=== PATIENT | male | born 1960 | race Caucasian/White ===

== ENCOUNTER 2024-11-04 13:10 | Outpatient (CLI) | payer OTHER, SELFPAY ==
[2024-11-04 13:10] VITALS: BP 131/70; PULSE 76; RESP 14; TEMP 36.3; O2SAT 97
[2024-11-04] MEDS: HEPARIN SODIUM LOCK FLUSH 500 UNITS/5 ML SYRINGE IV PUSH (13:43)
== END 2024-11-04 13:11 | disposition home or self-care (01) ==
PROVIDERS: PCP Family Medicine; Visit Provider Internal Medicine Hematology & Oncology
DX: Z45.2 Encounter for adjustment and management of vascular access device (principal); C25.0 Malignant neoplasm of head of pancreas
CPT/HCPCS: 96523

== ENCOUNTER 2024-11-20 14:08 | Outpatient (CLI) | payer OTHER, SELFPAY ==
[2024-11-20] MEDS: HEPARIN SODIUM LOCK FLUSH 500 UNITS/5 ML SYRINGE IV PUSH (14:25)
[2024-11-20 14:27] VITALS: BP 129/63; PULSE 74; RESP 14; TEMP 36.4; O2SAT 97; BMI 37.7
--- NOTE | 2024-11-20 14:34 | PC.NURSE ---
Tolerated chemo pump removal and port flush. see MAR/patient care notes.
== END 2024-11-20 14:09 | disposition home or self-care (01) ==
PROVIDERS: PCP Family Medicine; Visit Provider Internal Medicine Hematology & Oncology
DX: Z45.2 Encounter for adjustment and management of vascular access device (principal); C25.9 Malignant neoplasm of pancreas, unspecified
CPT/HCPCS: 96523

== ENCOUNTER 2024-12-02 14:02 | Outpatient (CLI) | payer OTHER, SELFPAY ==
[2024-12-02 14:21] VITALS: BP 127/74; PULSE 78; RESP 16; TEMP 36.5; O2SAT 95; BMI 35.2
[2024-12-02] MEDS: HEPARIN SODIUM LOCK FLUSH 500 UNITS/5 ML SYRINGE (14:25)
--- NOTE | 2024-12-02 14:32 | PC.NURSE ---
Patient tolerated chemo pump removal and port a cath deaccess well. SEE patient care notes.
== END 2024-12-02 14:03 | disposition home or self-care (01) ==
PROVIDERS: PCP Family Medicine; Visit Provider Internal Medicine Hematology & Oncology
DX: Z45.2 Encounter for adjustment and management of vascular access device (principal); C25.9 Malignant neoplasm of pancreas, unspecified
CPT/HCPCS: 96523

== ENCOUNTER 2024-12-16 14:14 | Outpatient (CLI) | payer OTHER, SELFPAY ==
[2024-12-16] MEDS: HEPARIN SODIUM LOCK FLUSH 500 UNITS/5 ML SYRINGE IV PUSH (14:35)
[2024-12-16 14:36] VITALS: BP 125/75; PULSE 72; RESP 16; TEMP 36.6; O2SAT 97
== END 2024-12-16 14:15 | disposition home or self-care (01) ==
PROVIDERS: PCP Family Medicine; Visit Provider Internal Medicine Hematology & Oncology
DX: Z45.2 Encounter for adjustment and management of vascular access device (principal); C25.9 Malignant neoplasm of pancreas, unspecified
CPT/HCPCS: 96523

== ENCOUNTER 2024-12-30 14:06 | Outpatient (CLI) | payer OTHER, SELFPAY ==
[2024-12-30 14:29] VITALS: BP 128/70; PULSE 78; RESP 14; TEMP 36.7; O2SAT 96
[2024-12-30] MEDS: HEPARIN SODIUM LOCK FLUSH 500 UNITS/5 ML SYRINGE IV PUSH (14:29)
--- OUTSIDE RECORDS SUMMARY | 2024-12-30 14:57 | XMS_ITS | Clinical Summary ---
Author Organization [facility] Address [address] [place] [address] [place] [address] Care Team Providers Care Behavioral Health Assistant Name Role Phone Jevon Pelletier MD Primary Care Provider [phone] Lavon Schuler MD Unavailable [phone] Ravin Patel MD Unavailable [phone] Leelee Montana [facility] Unavailable Allergies Active Allergy Reactions Criticality Noted Date Comments Isosorbide Nitrate Headache 11/09/2016 Medications aspirin EC (ECOTRIN) 81 MG tablet Take 1 tablet by mouth daily. 03/09/2014 Active gabapentin 600 MG tablet Take 600 mg by mouth 3 (three) times daily. 11 11/05/2016 Active lisinopril 40 MG tablet Take 40 mg by mouth daily. 11 11/05/2016 Active metFORMIN 500 MG 24 hr tablet Take 2,000 mg by mouth daily. 11 10/16/2016 Active nitroglycerin (NITROSTAT) 0.[address] 0.4 mg under the tongue every 5 (five) minutes as needed. 08/27/2014 Active atorvastatin 10 MG tablet Take 10 mg by mouth nightly at bedtime. 04/19/2020 Active JARDIANCE 25 MG tablet Take 25 mg by mouth daily. 12/30/2020 Active RYBELSUS 7 MG Tab Take 1 tablet by mouth daily. 11/19/2022 Active sucralfate (CARAFATE) 1 G tablet Take 1 g by mouth every 6 (six) hours as needed. 09/07/2022 Active pantoprazole EC (PROTONIX) 40 MG tablet Take 1 tablet (40 mg total) by mouth daily. 11/27/2022 Active Active Problems Problem Noted Date Diagnosed Date Vertigo 11/26/2022 Syncope and collapse 11/25/2022 Acute viral syndrome 11/25/2022 Pneumobilia 11/25/2022 Generalized weakness 11/24/2022 Traumatic complete tear of l eft rotator cuff, subsequent encounter 10/20/2020 Traumatic tear of left rotat or cuff, unspecified tear extent, initial encounter 10/03/2020 Rotator cuff injury, left, initial encounter 09/2020 Acute on chronic pancreatitis ([facility]) 07/06/2020 Hemoglobin A1c 8.0% or greater 07/06/2020 Osteoarthritis of left knee 12/27/2016 Essential (primary) hypertension 11/09/2016 Class 3 severe obesity due t o excess calories with serious comorbidity in adult ([facility]) 11/09/2016 ALEJO (obstructive sleep apnea) 11/09/2016 Umbilical hernia 06/05/2016 Controlled type 2 diabetes m ellitus with diabetic neuropathy ([facility]) Diabetic neuropathy ([facility]) Hypertension Coronary artery disease Overview (07/06/2020): non-obstructive Resolved Problems Problem Noted Date Diagnosed Date Resolved Date Hypomagnesemia 07/06/2020 07/13/2020 Other chest pain 01/31/2018 02/16/2022 Hyperlipidemia, mixed 11/09/20162019 Morbid obesity ([facility]) 02/16/2022 Sleep apnea with use of cont inuous positive airway pressure (CPAP) 02/16/2022 Overview (07/06/2020): has not been using secondary to waiting for a chin strap Encounters Date Type Department Care Team Description 12/25/2024 9:23 AM CUSTOMER SERVICE ADMINISTRATOR - 12/25/2024 11:59 PM CUSTOMER SERVICE ADMINISTRATOR Hospital Encounter [facility] [address] [place] [address] Hever Marc MD Discharge Disposition: Home or Self Care (Routine Discharge) 12/25/2024 Orders Only [facility] [address] [place] [id number] Hever Marc MD 12/25/2024 Travel 12/11/2024 1:25 PM CUSTOMER SERVICE ADMINISTRATOR - 12/11/2024 11:59 PM CUSTOMER SERVICE ADMINISTRATOR Hospital Encounter [facility] [address] [place] [address] Hever Marc MD Discharge Disposition: Home or Self Care (Routine Discharge) 12/11/2024 Orders Only [facility] [address] [place] [address] Hever Marc MD 12/11/2024 Travel 11/27/2024 11:30 AM CUSTOMER SERVICE ADMINISTRATOR - 11/27/2024 11:59 PM CUSTOMER SERVICE ADMINISTRATOR Hospital Encounter [facility] [place] [address] Hever Marc MD Discharge Disposition: Home or Self Care (Routine Discharge) 11/27/2024 Orders Only [facility] [address] [place] [address] Hever Marc MD 11/27/2024 Travel 11/13/2024 10:48 AM CUSTOMER SERVICE ADMINISTRATOR - 11/13/2024 11:59 PM CUSTOMER SERVICE ADMINISTRATOR Hospital Encounter [facility] [address] [place] [id number] Hever Marc MD Discharge Disposition: Home or Self Care (Routine Discharge) 11/13/2024 Orders Only [facility] [address] [place] [address] Hever Marc MD 11/13/2024 Travel 10/28/2024 8:19 AM CUSTOMER SERVICE ADMINISTRATOR - 10/28/2024 11:59 PM CUSTOMER SERVICE ADMINISTRATOR Hospital Encounter [facility] [place] [address] Hever Marc MD Discharge Disposition: Home or Self Care (Routine Discharge) 10/28/2024 Orders Only [facility] [address] [place] [address] Hever Marc MD 10/28/2024 Travel 10/16/2024 11:20 AM CUSTOMER SERVICE ADMINISTRATOR - 10/16/2024 11:59 PM CUSTOMER SERVICE ADMINISTRATOR Hospital Encounter [facility] [address] [place] [address] Hever Marc MD Discharge Disposition: Home or Self Care (Routine Discharge) 10/16/2024 Orders Only [facility] [address] [place] [id number] Hever Marc MD 10/16/2024 Travel from Last 3 Months Family History Medical History Relation Comments Diabetes Brother 1 Heart Attack Brother 1 in his 40's, Hypertension Brother 1 Stent Cardiac Brother 1 Diabetes Brother 2 Hypertension Brother 2 Stent Cardiac Brother 3 No Known Problems Brother 4 Alzheimers Father CABG Father Heart Attack Father CABG Mother in 60's Relation Status Comments Brother 1 Alive heart disease Brother 2 Alive Brother 3 Alive Brother 4 Alive Father (Age 81) Mother (Age 81) kidney dialysi s, CHF,sepsis Social History Tobacco Use Types Packs/Day Years Used Date Smoking Tobacco: Never Smokeless Tobacco: Never Alcohol Use Standard Drinks/Week Comments No 0 (1 standard drink = 0.6 oz pur e alcohol) Sex and Gender Information Value Date Recorded Sex Assigned at Male 12/25/2024 9:22 AM CUSTOMER SERVICE ADMINISTRATOR Legal Sex Male 11:59 PM CDT Gender Identity Not on file Sexual Orientation Not on file 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 [employer] Not on file Not on file Not on file Last Filed Vital Signs Vital Sign Reading Time Taken Comments Blood Pressure 110/74 11/27/2022 8:42 AM CUSTOMER SERVICE ADMINISTRATOR Pulse 79 11/27/2022 8:42 AM CUSTOMER SERVICE ADMINISTRATOR Temperature 35.9 ??C (96.6 ??F) 11/27/2022 6:05 AM CS T Respiratory Rate 20 11/27/2022 6:05 AM CUSTOMER SERVICE ADMINISTRATOR Oxygen Saturation 94% 11/27/2022 6:05 AM CUSTOMER SERVICE ADMINISTRATOR Inhaled Oxygen Concentration - - Weight 131.6 kg (290 lb 3.2 oz) 11/24/2022 9:37 PM CUSTOMER SERVICE ADMINISTRATOR Height 177.8 cm (5' 10 ) 11/24/2022 9:37 PM CUSTOMER SERVICE ADMINISTRATOR Body Mass Index 41.64 11/24/2022 9:37 PM CUSTOMER SERVICE ADMINISTRATOR Plan of Treatment Health Maintenance Due Date Last Done Comments ASCVD Statin 1960 Kidney Health Evaluation 1960 Annual Physical 1963 Pneumococcal Vaccine: Pediatrics (0 to 5 Years) and At-Risk Patients (6 to 64 Years) (1 of 2 - PCV) 1966 Diabetes: Retinopathy Eye Exam 1978 Hepatitis C 1978 DTaP, Tdap and Td Vaccines (1 - Tdap) 1979 Zoster Vaccines (1 of 2) 2010 RSV Immunization or 60+ Years (1 - Risk 60-74 years 1-dose series) 2020 Hemoglobin A1C 04/20/2021 10/21/2020, 080 04/2020, 05/22/2016 ASCVD LDL 07/27/2021 07/27/2020, 07/02, 07/07/2020, Additional history exists Lipid Panel 07/27/2021 07/27/2020, 07/02, 07/07/2020, Additional history exists COVID-19 Vaccine ( season) 2024 05/12/2021, 04/14/2021 Influenza Adult (#1) 2024 Colorectal Cancer Screening Colonoscopy (10 Years) 05/26/2031 05/26/2021, 05/26/2021 Meningococcal B Vaccine Aged Out No l onger eligible based on patient's age to complete this topic Meningococcal Vaccine Aged Out No lis cosmo eligible based on patient's age to complete this topic RSV Immunizations Under 20 Months Aged Out No longer eligible based on patient's age to complete this topic Goals Goal Patient Goal Type Associated Problems Recent Progress Patient-Stated? Author Patient will return to prior living situation and remain independent in ADLs upon discharge from hospital Lifestyle No Mariely Cottrell RN Medical Devices Implanted Type Area [employer] Device Identifier Shelf Expiration Date Model / Serial / Lot Kit [employer] Bioanchor Speedbridge 5.5 [facility] - [id number] Implanted:Qty: 1 on 11/16/2020 by Franc Casas MD at [facility] [place] Left: Shoulder [employer] [id number] 08/01/2024 [id number]-[id number] S-5 / / [id number] Kit [employer] Bioanchor Speedbridge 5.5 [facility] - [id number] Implanted:Qty: 1 on 11/16/2020 by Franc Casas MD at [facility] [place] Left: Shoulder [employer] [id number] 08/01/2024 AR-2600SB S-5 / / [id number] Implant System, Proximal [employer] Implanted:Qty: 1 on 11/16/2020 by Franc Casas MD at [facility] Left: Shoulder 03/31/2025 [id number] / / [id number] Procedures Procedure Name Priority Date/Time Associated Diagnosis Comments COMPREHENSIVE METABOLIC PANEL Routine 12/25/2024 9:35 AM CUSTOMER SERVICE ADMINISTRATOR Adenocarcinoma of pancreas (CMS/HCC HHS/HCC) CBC W/DIFF AUTOMATED Routine 12/25/2024 9:35 AM CUSTOMER SERVICE ADMINISTRATOR Adenocarcinoma of pancreas (CMS/HCC HHS/HCC) COMPREHENSIVE METABOLIC PANEL Routine 12/11/2024 1:44 PM CUSTOMER SERVICE ADMINISTRATOR Adenocarcinoma of pancreas (CMS/HCC HHS/HCC) CBC W/DIFF AUTOMATED Routine 12/11/2024 1:44 PM CUSTOMER SERVICE ADMINISTRATOR Adenocarcinoma of pancreas (CMS/HCC HHS/HCC) COMPREHENSIVE METABOLIC PANEL Routine 11/27/2024 11:40 AM CUSTOMER SERVICE ADMINISTRATOR Adenocarcinoma of pancreas (CMS/HCC HHS/HCC) CBC W/DIFF AUTOMATED Routine 11/27/2024 11:40 AM CUSTOMER SERVICE ADMINISTRATOR Adenocarcinoma of pancreas (CMS/HCC HHS/HCC) COMPREHENSIVE METABOLIC PANEL Routine 11/13/2024 10:58 AM CUSTOMER SERVICE ADMINISTRATOR Adenocarcinoma of pancreas (CMS/HCC HHS/HCC) CBC W/DIFF AUTOMATED Routine 11/13/2024 10:58 AM CUSTOMER SERVICE ADMINISTRATOR Adenocarcinoma of pancreas (CMS/HCC HHS/HCC) IMMUNOASY TUMOR AG CA 19-9 Routine 11/13/2024 10:58 AM CUSTOMER SERVICE ADMINISTRATOR Adenocarcinoma of pancreas (CMS/HCC HHS/HCC) COMPREHENSIVE METABOLIC PANEL Routine 10/28/2024 8:26 AM CUSTOMER SERVICE ADMINISTRATOR Adenocarcinoma of pancreas (CMS/HCC HHS/HCC) CBC W/DIFF AUTOMATED Routine 10/28/2024 8:26 AM CUSTOMER SERVICE ADMINISTRATOR Adenocarcinoma of pancreas (CMS/HCC HHS/HCC) COMPREHENSIVE METABOLIC PANEL Routine 10/16/2024 11:31 AM CUSTOMER SERVICE ADMINISTRATOR Adenocarcinoma of pancreas (CMS/HCC HHS/HCC) CBC W/DIFF AUTOMATED Routine 10/16/2024 11:31 AM CUSTOMER SERVICE ADMINISTRATOR Adenocarcinoma of pancreas (CMS/HCC HHS/HCC) COLONOSCOPY 05/26/2021 10:08 AM CDT HEMOGLOBIN, GLYCOSYLATED Routine 10/21/2020 1:39 PM CUSTOMER SERVICE ADMINISTRATOR Controlled type 2 diabetes mellitus with diabetic neuropathy, unspecified whether superintendent container terminal insulin use (CMS/HCC HHS/HCC) LIPID PANEL (OUTSIDE LAB) Routine 07/27/2020 from Last 3 Months or Most Recently Relevant to Health Maintenance Results * (ABNORMAL) COMPREHENSIVE METABOLIC PANEL (12/25/2024 9:35 AM CUSTOMER SERVICE ADMINISTRATOR) Only the most recent of6 resultswithin the time period is included. SODIUM S/P/B 141 136 - 145 MMOL/L 12/25/2024 10:07 AM [facility] POTASSIUM S/P/B 4.3 3.5 - 5.1 MMOL/L 12/25/2024 10:07 AM [facility] CHLORIDE S/P/B 103 98 - 107 MMOL/L 12/25/2024 10:07 AM [facility] CO2 25.9 21.0 - 32.0 MMOL/L 12/25/2024 10:07 AM [facility] GLUCOSE 155(H) 70 - 99 MG/DL 12/25/2024 10:07 AM [facility] Comment: FASTING GLUCOSE 100 TO 125 MG/DL IS CONSISTENT WITH IMPAIRED FASTING GLUCOSE. FASTING GLUCOSE >125 MG/DL IS CONSISTENT WITH DIABETES. RANDOM GLUCOSE >200 MG/DL WITH HYPERGLYCEMIC SYMPTOMS IS CONSISTENT WITH DIABETES. PER ADA GUIDELINES BUN 12 6 - 24 MG/DL 12/25/2024 10:07 AM [facility] CREATININE S/P/B 0.96 0.70 - 1.30 MG/DL 12/25/2024 10:07 AM [facility] CALCIUM S/P/B 8.9 8.4 - 10.5 MG/DL 12/25/2024 10:07 AM [facility] BILIRUBIN TOTAL S/P/B 0.5 0.2 - 1.0 MG/DL 12/25/2024 10:07 AM [facility] Comment: THIS ASSAY IS NOT RECOMMENDED FOR PATIENTS UNDERGOING TREATMENT WITH ELTROMBOPAG DUE TO THE POTENTIAL FOR FALSELY ELEVATED RESULTS. ALKALINE PHOSPHATASE S/P/B 76 45 - 115 U/L 12/25/2024 10:07 AM [facility] AST 32 15 - 37 U/L 12/25/2024 10:07 AM [facility] ALT 40 16 - 63 U/L 12/25/2024 10:07 AM [facility] TOTAL PROTEIN S/P/B 6.7 6.4 - 8.2 G/DL 12/25/2024 10:07 AM [facility] ALBUMIN S/P/B 3.4 3.4 - 5.0 G/DL 12/25/2024 10:07 AM [facility] ANION GAP 12.1 5.0 - 15.0 MMOL/L 12/25/2024 10:07 AM [facility] OSMOLALITY (CALC) 295 MOSM/KG 025 10:07 AM [facility] Comment:REFERENCE RANGE NOT ESTABLISHED GFR ESTIMATE 88(L) >89 ML/MIN/1. 73 M2 12/25/2024 10:07 AM [facility] GFR NOTES GFR REFERENCE S: 12/25/2024 10:07 AM [facility] Comment: THE ESTIMATED GFR IS CALCULATED USING THE 2020 CKD-EPI EQUATION. THE FOLLOWING CATEGORIES FOR GRADING RENAL FUNCTION ARE RECOMMENDED BY THE INTERNATIONAL SOCIETY OF NEPHROLOGY (KDIGO 2012 CLINICAL PRACTICE GUIDELINE). G1,NORMAL OR HIGH: >89 ml/min/1.73 m2 G2,MILDLY DECREASED: 60-89 ml/min/1.73 m2 G3A,MILDLY TO MODERATELY DECREASED: 45-59 ml/min/1.73 m2 G3B,MODERATELY TO SEVERELY DECREASED: 30-44 ml/min/1.73 m2 G4,SEVERELY DECREASED: 15-29 ml/min/1.73 m2 G5,KIDNEY FAILURE: <15 ml/min/1.73 m2 12/25/2024 9:35 AM CUSTOMER SERVICE ADMINISTRATOR Hever Marc MD LABORATORY Final Result [facility] [address] [id number], * (ABNORMAL) CBC W/DIFF AUTOMATED (12/25/2024 9:35 AM CUSTOMER SERVICE ADMINISTRATOR) Only the most recent of6 resultswithin the time period is included. WBC 6.59 4.00 - 10.80 x10'3/uL 12/25/2024 9:48 AM CUSTOMER SERVICE ADMINISTRATOR [facility] RBC 5.29 4.50 - 6.10 x10'6/uL 12/25/2024 9:48 AM CUSTOMER SERVICE ADMINISTRATOR [facility] HGB 15.5 13.0 - 18.0 G/DL 12/25/2024 9:48 AM [facility] HCT 47.3 37.0 - 52.0 % 12/25/2024 9:48 AM CUSTOMER SERVICE ADMINISTRATOR [facility] MCV 89.4 78.0 - 100.0 FL 12/25/2024 9:48 AM CUSTOMER SERVICE ADMINISTRATOR [facility] MCH 29.3 27.0 - 31.0 PG 12/25/2024 9:48 AM CUSTOMER SERVICE ADMINISTRATOR [facility] MCHC 32.8(L) 33.0 - 36.0 G/DL 12/25/2024 9:48 AM [facility] RDW 18.3(H) 11.5 - 14.5 % 12/25/2024 9:48 AM [facility] PLT 152 150 - 350 x10'3/uL 12/25/2024 9:48 AM [facility] MPV 9.0 7.4 - 10.4 FL 12/25/2024 9:48 AM [facility] CBC COMMENT NORMAL REFERENCE RANGE NOT ESTABLISHED FOR THE PROPORTIONAL LEUKOCYTE DIFFERENTIAL. 12/25/2024 9:48 AM [facility] NEUTROPHILS % 48.9 % 12/25/2024 9:48 AM [facility] LYMPHOCYTES % 36.9 % 12/25/2024 9:48 AM [facility] MONOCYTES % 12.4 % 12/25/2024 9:48 AM [facility] EOSINOPHILS % 1.1 % 12/25/2024 9:48 AM [facility] BASOPHILS % 0.5 % 12/25/2024 9:48 AM [facility] IMMATURE GRANS % 0.2 % 12/25/19 9:48 AM [facility] NRBC % 0.0 % 12/25/2024 9:48 AM [facility] ABS. NEUTROPHILS 3.23 1.60 - 8.30 x10'3/uL 12/25/2024 9:48 AM [facility] ABS. LYMPHOCYTES 2.43 0.80 - 4.70 x10'3/uL 12/25/2024 9:48 AM [facility] ABS. MONOCYTES 0.82 0.00 - 1.50 x10'3/uL 12/25/2024 9:48 AM [facility] ABS. EOSINOPHILS 0.07 0.00 - 0.40 x10'3/uL 12/25/2024 9:48 AM [facility] ABS. BASOPHILS 0.03 0.00 - 0.20 x10'3/uL 12/25/2024 9:48 AM [facility] ABS. IMMATURE GRANULOCYTES 0.01 0.00 - 0.03 x10'3/uL 12/25/2024 9:48 AM [facility] ABS. NUCLEATED RBC'S 0.00 0.00 - 0.01 x10'3/uL 12/25/2024 9:48 AM CUSTOMER SERVICE ADMINISTRATOR [facility] 12/25/2024 9:35 AM CUSTOMER SERVICE ADMINISTRATOR Hever Marc MD LABORATORY Final Result Performing Organization Address City/[facility]/ZIP Co de Phone Number [facility] [address] [place] [address], * (ABNORMAL) IMMUNOASY TUMOR AG CA 19-9 (11/13/2024 10:58 AM CUSTOMER SERVICE ADMINISTRATOR) CA 19-9 37(H) <34 U/mL 11/17/2024 9:42 PM CUSTOMER SERVICE ADMINISTRATOR [facility] Comment: This test was performed using the Siemens chemiluminescent method. Values obtained from different assay methods cannot be used inter- changeably. CA 19-9 levels, regardless of value, should not be interpreted as absolute evidence of the presence or absence of disease. Test Performed by [facility], [facility], [address] [place] [address] Aaron Mccall M.D., Ph.D., Director of Laboratories , [facility] [id number] 11/13/2024 10:5 8 AM CUSTOMER SERVICE ADMINISTRATOR Hever Marc MD LABORATORY Final Result Performing Organization Address [facility]/ZIP Co de Phone Number [facility] [address], [place] [phone] * COLONOSCOPY (05/26/2021 10:08 AM CDT) us Yobany Stern MD GI PROCEDURE ORDERABLES Final Result * (ABNORMAL) HEMOGLOBIN, GLYCOSYLATED (10/21/2020 1:39 PM CUSTOMER SERVICE ADMINISTRATOR) HGB A1C 7.5(H) <5.7 % 10/21/2020 1:55 PM CUSTOMER SERVICE ADMINISTRATOR [facility] Comment: 5.7 TO 6.4% INCREASED RISK OF DIABETES > OR = 6.5% CONSISTENT WITH DIABETES PER ADA GUIDELINES ESTIMATED AVG GLUCOSE 169(H) 70 - 140 MG/DL 10/21/2020 1:55 PM CUSTOMER SERVICE ADMINISTRATOR [facility] 10/21/2020 1:39 PM CUSTOMER SERVICE ADMINISTRATOR Franc Casas MD LABORATORY Final Result [facility] [address] [place] [address], * LIPID PANEL (OUTSIDE LAB) (07/27/2020) CHOLESTEROL 122 TRIGLYCERIDES 250 HDL 35 LDL (CALCULATED) 37 VLDL CALCULATION 50 CHOL/HDL RATIO 3.5 07/27/2020 Doc [facility] LAB-OUTSIDE/ABSTRACTED Final Result from Last 3 Months or Most Recently Relevant to Health Maintenance Insurance [id number] Advance Directives * Full Code (Latest Code Status on File) Date Activated Date Inactivated Comments 11/25/2022 5:07 PM 11/27/2022 1:35 PM * Full Code Date Activated Date Inactivated Comments 07/06/2020 2:42 PM 07/13/2020 6:06 PM Care Teams Behavioral Health Assistant Relationship Specialty Start Date End Date Jevon Pelletier MD [address] [place] [address] PCP - General FAMILY PRACTICE 10/16/16 Lavon Schuler MD [address] [place] [address] Consulting Physician GASTROENTEROLOGY 08/11/20 Ravin Patel MD [address] [place] [address] Consulting Physician INTERVENTIONAL CARDIOLOGY 09/08/21 Leelee Montana, [facility]- [address] [place] [address] NURSE PRACTITIONER 09/08/21
--- OUTSIDE RECORDS SUMMARY | 2024-12-30 14:57 | XMS_ITS | Encounter Summary ---
Author Organization [facility] Address [address] [place] [address]. [place] [address] [place] [address] Care Team Providers Care Shank Cutter Name Role Phone Jevon Pelletier MD Primary Care Provider [phone] Nigel Petersen MD Unavailable [phone] Lavon Schuler MD Unavailable [phone] Ravin Patel MD Unavailable [phone] Leelee Montana [facility] Unavailable Encounter Details Date Type Department Care Team (Late st Contact Info) Description 05/09/2019 Abstract [facility] CONVERSION [address] [place] [address] , Generic Conversion, Social History Tobacco Use Types Packs/Day Years Used Date Smoking Tobacco: Never Smokeless Tobacco: Never Alcohol Use Standard Drinks/Week Comments No 0 (1 standard drink = 0.6 oz pur e alcohol) Sex and Gender Information Value Date Recorded Sex Assigned at Male 12/25/2024 9:22 AM SENIOR ASIC DESIGN ENGINEER Legal Sex Male 11:59 PM CDT Gender Identity Not on file Sexual Orientation Not on file 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 Not on file Not on file Not on file documented as of this encounter Plan of Treatment Not on file documented as of this encounter Visit Diagnoses Not on filedocumented in this encounter Additional Health Concerns Infection Onset Date Last Indicated Resolved Time COVID-19 Rule Out 09/12/2020 09/12/2020 09/13/2020 9:06 PM CDT COVID-19 Confirmed 09/12/2020 09/12/2020 0 12:34 AM SENIOR ASIC DESIGN ENGINEER COVID-19 Rule Out 11/13/2020 11/13/2020 11/14/2020 10:26 PM SENIOR ASIC DESIGN ENGINEER COVID-19 Rule Out 11/24/2022 11/24/2022 11/24/2022 5:19 PM SENIOR ASIC DESIGN ENGINEER COVID-19 Rule Out 11/24/2022 11/24/2022 11/25/2022 11:58 AM SENIOR ASIC DESIGN ENGINEER documented as of this encounter Care Teams Shank Cutter Relationship Specialty Start Date End Date Jevon Pelletier MD [address] [place] [phone] PCP - General FAMILY PRACTICE 10/16/16 Nigel Petersen MD [facility] [facility] [place] [id number] [place] Custodial Manager CARDIOVASCULAR DISEASE 10/16/16 09/07/21 Lavon Schuler MD [address] [place] [address] Consulting Physician GASTROENTEROLOGY 08/11/20 Ravin Patel MD [address] [place] [address] Consulting Physician INTERVENTIONAL CARDIOLOGY 09/08/21 Leelee Montana, PLATE TAKE OUT WORKER- [address] [place] [address] NURSE PRACTITIONER 09/08/21 documented as of this encounter
--- OUTSIDE RECORDS SUMMARY | 2024-12-30 14:57 | XMS_ITS | Encounter Summary ---
Author Organization [facility] Address [address] [place] [address]. [place] [address] [place] [address] Care Team Providers Care Inspector Water Pollution Control Name Role Phone Jevon Pelletier MD Primary Care Provider [phone] Nigel Petersen MD Unavailable [phone] Lavon Schuler MD Unavailable [phone] Ravin Patel MD Unavailable [phone] Leelee Montana [facility] Unavailable Encounter Details Date Type Department Care Team (Late st Contact Info) Description 08/16/2020 Abstract [facility] [address] [place] [id number] Abstract, Doc [facility] Social History Tobacco Use Types Packs/Day Years Used Date Smoking Tobacco: Never Smokeless Tobacco: Never Alcohol Use Standard Drinks/Week Comments No 0 (1 standard drink = 0.6 oz pur e alcohol) Sex and Gender Information Value Date Recorded Sex Assigned at Male 12/25/2024 9:22 AM STOCKKEEPER Legal Sex Male 11:59 PM CDT Gender Identity Not on file Sexual Orientation Not on file 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 No / Unsure 08/19/2020 8:27 AM CDT documented as of this encounter Functional Status * RETIRED Are you deaf or do you have serious difficulty hearing Answer Date of Assessment Author Status No 07/06/2020 2:56 PM CDT Activ e * RETIRED Are you blind or do you have serious difficulty seeing, even when wearing glasses? Answer Date of Assessment Author Status No 07/06/2020 2:56 PM CDT Activ e * Do you have serious difficulty walking or climbing stairs? Answer Date of Assessment Author Status No 07/06/2020 2:56 PM CDT Belia Shaffer RN Active * Do you have difficulty dressing or bathing? Answer Date of Assessment Author Status No 07/06/2020 2:56 PM CDT Belia Shaffer RN Active * Because of a physical, mental, or emotional condition, do you have difficulty doing errands alone such as visiting a doctor's office or shopping? Answer Date of Assessment Author Status No 07/06/2020 2:56 PM CDT Belia Shaffre RN Active documented as of this encounter Mental Status * Because of a physical, mental, or emotional condition, do you have serious difficulty concentrating, remembering, or making decisions? Answer Entry Date Author Status No 07/06/2020 2:56 PM CDT Belia Shaffer RN Active documented in this encounter Plan of Treatment Not on file documented as of this encounter Procedures Procedure Name Priority Date/Time Associated Diagnosis Comments LIPID PANEL (OUTSIDE LAB) Routine 07/27/2020 CMP (ABSTRACTED LAB) Routine 07/27/2020 documented in this encounter Results * (ABNORMAL) CMP (ABSTRACTED LAB) (07/27/2020) SODIUM S/P/B 144 POTASSIUM S/P/B 5.3(A) 3.5 - 5.2 CHLORIDE S/P/B 101 CO2 27 BUN 9 CREATININE S/P/B 0.94 0.7 - 1.3 EGFR AFR. AMER. 101(A) <=90 EGFR NON-AFR. AMER. 88 <=90 CALCIUM S/P/B 9.9 GLUCOSE 172 mg/dL TOTAL PROTEIN S/P/B 6.9 ALBUMIN S/P/B 4.3 3.5 - 5.0 AST 15 ALT 15 ALKALINE PHOSPHATASE S/P/B 57 BILIRUBIN TOTAL S/P/B 0.6 07/27/2020 us Doc [facility] Abstract LAB-OUTSIDE/ABSTRACTED Final Result * LIPID PANEL (OUTSIDE LAB) (07/27/2020) CHOLESTEROL 122 TRIGLYCERIDES 250 HDL 35 LDL (CALCULATED) 37 VLDL CALCULATION 50 CHOL/HDL RATIO 3.5 07/27/2020 us Doc [facility] Abstract LAB-OUTSIDE/ABSTRACTED Final Result documented in this encounter Visit Diagnoses Not on filedocumented in this encounter Additional Health Concerns Infection Onset Date Last Indicated Resolved Time COVID-19 Rule Out 09/12/2020 09/12/2020 09/13/2020 9:06 PM CDT COVID-19 Confirmed 09/12/2020 09/12/2020 0 12:34 AM STOCKKEEPER COVID-19 Rule Out 11/13/2020 11/13/2020 11/14/2020 10:26 PM STOCKKEEPER COVID-19 Rule Out 11/24/2022 11/24/2022 11/24/2022 5:19 PM STOCKKEEPER COVID-19 Rule Out 11/24/2022 11/24/2022 11/25/2022 11:58 AM STOCKKEEPER documented as of this encounter Care Teams Inspector Water Pollution Control Relationship Specialty Start Date End Date Jevon Pelletier MD [address] [place] [id number] PCP - General FAMILY PRACTICE 10/16/16 Nigel Petersen MD [address] [phone] [place] Dental Instrument Maker CARDIOVASCULAR DISEASE 10/16/16 09/07/21 Lavon Schuler MD [address] [place] [address] Consulting Physician GASTROENTEROLOGY 08/11/20 Ravin Patel MD [address] [place] [address] Consulting Physician INTERVENTIONAL CARDIOLOGY 09/08/21 Leelee [place], REGIONAL EHS MANAGER- [address], [place] [address] NURSE PRACTITIONER 09/08/21 documented as of this encounter
--- OUTSIDE RECORDS SUMMARY | 2024-12-30 14:57 | XMS_ITS | Encounter Summary ---
Author Organization [facility] Address [address] [facility] [place] [address] [place] [address] Care Team Providers Care Architectural Superintendent Name Role Phone Jevon Pelletier MD Primary Care Provider [phone] Lavon Schuler MD Unavailable [phone] Ravin Patel MD Unavailable [phone] Leelee Montana [facility] Unavailable Encounter Details Date Type Department Care Team (Late st Contact Info) Description 02/28/2024 GPX Software Message Enc [facility] BUSINESS OFF[facility] Provider Action Required Social History Tobacco Use Types Packs/Day Years Used Date Smoking Tobacco: Never Smokeless Tobacco: Never Alcohol Use Standard Drinks/Week Comments No 0 (1 standard drink = 0.6 oz pur e alcohol) Sex and Gender Information Value Date Recorded Sex Assigned at Male 12/25/2024 9:22 AM MARKETING AND PROMOTIONS MANAGER Legal Sex Male 11:59 PM CDT Gender Identity Not on file Sexual Orientation Not on file 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 Answer Date of Assessment Author Status No 11/24/2022 9:28 PM MARKETING AND PROMOTIONS MANAGER Activ e * Do you have serious difficulty walking or climbing stairs? Answer Date of Assessment Author Status Yes 11/24/2022 9:28 PM MARKETING AND PROMOTIONS MANAGER Pily Olivera RN Active * Do you have difficulty dressing or bathing? Answer Date of Assessment Author Status Yes 11/24/2022 9:28 PM MARKETING AND PROMOTIONS MANAGER Pily Olivera RN Active * Because of a physical, mental, or emotional condition, do you have difficulty doing errands alone such as visiting a doctor's office or shopping? Answer Date of Assessment Author Status No 11/24/2022 9:28 PM Pily Feldman RN Active documented as of this encounter Mental Status * Because of a physical, mental, or emotional condition, do you have serious difficulty concentrating, remembering, or making decisions? Answer Entry Date Author Status No 11/24/2022 9:28 PM Pily Feldman RN Active documented in this encounter Plan of Treatment Not on file documented as of this encounter Goals Goal Patient Goal Type Associated Problems Recent Progress Patient-Stated? Author Patient will return to prior living situation and remain independent in ADLs upon discharge from hospital Lifestyle No Mariely Cottrell RN documented as of this encounter Visit Diagnoses Not on filedocumented in this encounter Care Teams Architectural Superintendent Relationship Specialty Start Date End Date Jevon Pelletier MD [address] [facility] [place] [phone] PCP - General FAMILY PRACTICE 10/16/16 Lavon Schuler MD [address] [place] [address] Consulting Physician GASTROENTEROLOGY 08/11/20 Ravin Patel MD [address] [place] [address] Consulting Physician INTERVENTIONAL CARDIOLOGY 09/08/21 Leelee Montana FNP- [address] [place] [address] NURSE PRACTITIONER 09/08/21 documented as of this encounter
--- OUTSIDE RECORDS SUMMARY | 2024-12-30 14:57 | XMS_ITS | Encounter Summary ---
Author Organization [facility] Address [facility] [facility] [place] [address] [place] [address] Care Team Providers Care Resp Therapist Name Role Phone Jevon Pelletier MD Primary Care Provider [phone] Nigel Petersen MD Unavailable [phone] Lavon Schuler MD Unavailable [phone] Ravin Patel MD Unavailable [phone] Leelee Montana [facility] Unavailable Encounter Details Date Type Department Care Team (Late st Contact Info) Description 11/18/2015 Abstract [facility] [address] [place] [address] Nigel Petersen MD [address] [place] [address] Social History Tobacco Use Types Packs/Day Years Used Date Smoking Tobacco: Never Alcohol Use Standard Drinks/Week Comments No 0 (1 standard drink = 0.6 oz pur e alcohol) Sex and Gender Information Value Date Recorded Sex Assigned at Male 12/25/2024 9:22 AM SLIP SHEETER Legal Sex Male 11:59 PM CDT Gender Identity Not on file Sexual Orientation Not on file 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 Not on file Not on file documented as of this encounter Plan of Treatment Not on file documented as of this encounter Visit Diagnoses Not on filedocumented in this encounter Additional Health Concerns Infection Onset Date Last Indicated Resolved Time COVID-19 Rule Out 09/12/2020 09/12/2020 09/13/2020 9:06 PM CDT COVID-19 Confirmed 09/12/2020 09/12/2020 12:34 AM SLIP SHEETER COVID-19 Rule Out 11/13/2020 11/13/2020 11/14/2020 10:26 PM SLIP SHEETER COVID-19 Rule Out 11/24/2022 11/24/2022 11/24/2022 5:19 PM SLIP SHEETER COVID-19 Rule Out 11/24/2022 11/24/2022 11/25/2022 11:58 AM SLIP SHEETER documented as of this encounter Care Teams Resp Therapist Relationship Specialty Start Date End Date Jevon Pelletier MD [address] [place] [address] PCP - General FAMILY PRACTICE 10/16/16 Nigel Petersen MD [facility] [place] [address] [place] Core Shaper Top CARDIOVASCULAR DISEASE 10/16/16 09/07/21 Lavon Schuler MD [address] [place] [address] Consulting Physician GASTROENTEROLOGY 08/11/20 Ravin Patel MD [address] [place], [place] [phone] Consulting Physician INTERVENTIONAL CARDIOLOGY 09/08/21 Leelee Montana UTILITY AIDE- [address], [place] [address] NURSE PRACTITIONER 09/08/21 documented as of this encounter
--- OUTSIDE RECORDS SUMMARY | 2024-12-30 14:57 | XMS_ITS | Continuity of Care Document ---
Author Organization [facility] Address [address] [place] [address] [address] [place] [address] Insurance Providers Payer Plan Claims Address Claims Phone Policy Number Group Number Relation Employer Guarantor Name Guarantor Guarantor Address Guarantor Phone [employer] [address] [address], [place] [address] tel:[phone] Self Alexander Montenegro 1960 [address] [place] [address] [employer] D [address], [place] [address] tel:[phone] [id number] Self Alexander Montenegro 1960 [address] [place] [address] Problems Condition ICD9 code ICD10 code SNOMED code Start Date End Date S tatus Encounter for screening for other metabolic disorders Z13.228 Results No Results Allergies, adverse reactions, alerts No known allergies and adverse reactions Medications No administered medications reported Vital Signs No vital signs reported Social History No smoking Hx information available
--- OUTSIDE RECORDS SUMMARY | 2024-12-30 14:57 | XMS_ITS | Encounter Summary ---
Author Organization [facility] Address [facility] [place] [address] [place] [address] Care Team Providers Care Charter Representative Name Role Phone Jevon Pelletier MD Primary Care Provider [phone] Lavon Schuler MD Unavailable [phone] Ravin Patel MD Unavailable [phone] Leelee Montana [facility] Unavailable Encounter Details Date Type Department Care Team (Late st Contact Info) Description 12/25/2024 Orders Only [facility] [address] [facility] [place] [address] Hever Marc MD [address] [place] [address] Social History Tobacco Use Types Packs/Day Years Used Date Smoking Tobacco: Never Smokeless Tobacco: Never Alcohol Use Standard Drinks/Week Comments No 0 (1 standard drink = 0.6 oz pur e alcohol) Sex and Gender Information Value Date Recorded Sex Assigned at Male 12/25/2024 9:22 AM AUTO PARTS COUNTER PERSON Legal Sex Male 11:59 PM CDT Gender Identity Not on file Sexual Orientation Not on file 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 Answer Date of Assessment Author Status No 11/24/2022 9:28 PM AUTO PARTS COUNTER PERSON Activ e * Do you have serious difficulty walking or climbing stairs? Answer Date of Assessment Author Status Yes 11/24/2022 9:28 PM Pily Feldman RN Active * Do you have difficulty dressing or bathing? Answer Date of Assessment Author Status Yes 11/24/2022 9:28 PM Pily Feldman RN Active * Because of a physical, [...] in ADLs upon discharge from hospital Lifestyle Mariely Snell RN documented as of this encounter Results * (ABNORMAL) COMPREHENSIVE METABOLIC PANEL (12/25/2024 9:35 AM [facility]) SODIUM S/P/B 141 136 - 145 MMOL/L 12/25/2024 10:07 AM [facility] POTASSIUM S/P/B 4.3 3.5 - 5.1 MMOL/L 12/25/2024 10:07 AM [facility] CHLORIDE S/P/B 103 98 - 107 MMOL/L 12/25/2024 10:07 AM [facility] CO2 25.9 21.0 - 32.0 MMOL/L 12/25/2024 10:07 AM [facility] GLUCOSE 155(H) 70 - 99 MG/DL 12/25/2024 10:07 AM [facility] Comment: FASTING GLUCOSE 100 TO 125 MG/DL IS CONSISTENT WITH IMPAIRED FASTING GLUCOSE. FASTING GLUCOSE >125 MG/DL IS CONSISTENT WITH DIABETES. RANDOM GLUCOSE >200 MG/DL WITH HYPERGLYCEMIC SYMPTOMS IS CONSISTENT WITH DIABETES. PER ADA GUIDELINES BUN 12 6 - 24 MG/DL 12/25/2024 10:07 AM [facility] CREATININE S/P/B 0.96 0.70 - 1.30 MG/DL 12/25/2024 10:07 AM [facility] CALCIUM S/P/B 8.9 8.4 - 10.5 MG/DL 12/25/2024 10:07 AM [facility] BILIRUBIN TOTAL S/P/B 0.5 0.2 - 1.0 MG/DL 12/25/2024 10:07 AM [facility] Comment: THIS ASSAY IS NOT RECOMMENDED FOR PATIENTS UNDERGOING TREATMENT WITH ELTROMBOPAG DUE TO THE POTENTIAL FOR FALSELY ELEVATED RESULTS. ALKALINE PHOSPHATASE S/P/B 76 45 - 115 U/L 12/25/2024 10:07 AM [facility] AST 32 15 - 37 U/L 12/25/2024 10:07 AM [facility] ALT 40 16 - 63 U/L 12/25/2024 10:07 AM [facility] TOTAL PROTEIN S/P/B 6.7 6.4 - 8.2 G/DL 12/25/2024 10:07 AM [facility] ALBUMIN S/P/B 3.4 3.4 - 5.0 G/DL 12/25/2024 10:07 AM [facility] ANION GAP 12.1 5.0 - 15.0 MMOL/L 12/25/2024 10:07 AM [facility] OSMOLALITY (CALC) 295 MOSM/KG 025 10:07 AM [facility] Comment:REFERENCE RANGE NOT ESTABLISHED GFR ESTIMATE 88(L) >89 ML/MIN/1. 73 M2 12/25/2024 10:07 AM [facility] GFR NOTES GFR REFERENCE S: 12/25/2024 10:07 AM AUTO PARTS COUNTER PERSON [facility] Comment: THE ESTIMATED GFR IS CALCULATED [...] FAILURE: <15 ml/min/1.73 m2 12/25/2024 9:35 AM AUTO PARTS COUNTER PERSON us Hever Marc MD LABORATORY Final Result [facility] [address] [place] [address], * (ABNORMAL) CBC W/DIFF AUTOMATED (12/25/2024 9:35 AM AUTO PARTS COUNTER PERSON) WBC 6.59 4.00 - 10.80 x10'3/uL 12/25/2024 9:48 AM AUTO PARTS COUNTER PERSON [facility] RBC 5.29 4.50 - 6.10 x10'6/uL 12/25/2024 9:48 AM [facility] HGB 15.5 13.0 - 18.0 G/DL 12/25/2024 9:48 AM AUTO PARTS COUNTER PERSON [facility] HCT 47.3 37.0 - 52.0 % 12/25/2024 9:48 AM [facility] MCV 89.4 78.0 - 100.0 FL 12/25/2024 9:48 AM AUTO PARTS COUNTER PERSON [facility] MCH 29.3 27.0 - 31.0 PG 12/25/2024 9:48 AM [facility] MCHC 32.8(L) 33.0 - 36.0 G/DL 12/25/2024 9:48 AM [facility] RDW 18.3(H) 11.5 - 14.5 % 12/25/2024 9:48 AM [facility] PLT 152 150 - 350 x10'3/uL 12/25/2024 9:48 AM [facility] MPV 9.0 7.4 - 10.4 FL 12/25/2024 9:48 AM [facility] CBC COMMENT NORMAL REFERENCE RANGE NOT ESTABLISHED FOR THE PROPORTIONAL LEUKOCYTE DIFFERENTIAL. 12/25/2024 9:48 AM [facility] NEUTROPHILS % 48.9 % 12/25/2024 9:48 AM [facility] LYMPHOCYTES % 36.9 % 12/25/2024 9:48 AM [facility] MONOCYTES % 12.4 % 12/25/2024 9:48 AM [facility] EOSINOPHILS % 1.1 % 12/25/2024 9:48 AM [facility] BASOPHILS % 0.5 % 12/25/2024 9:48 AM [facility] IMMATURE GRANS % 0.2 % 12/25/19 9:48 AM [facility] NRBC % 0.0 % 12/25/2024 9:48 AM [facility] ABS. NEUTROPHILS 3.23 1.60 - 8.30 x10'3/uL 12/25/2024 9:48 AM [facility] ABS. LYMPHOCYTES 2.43 0.80 - 4.70 x10'3/uL 12/25/2024 9:48 AM [facility] ABS. MONOCYTES 0.82 0.00 - 1.50 x10'3/uL 12/25/2024 9:48 AM [facility] ABS. EOSINOPHILS 0.07 0.00 - 0.40 x10'3/uL 12/25/2024 9:48 AM [facility] ABS. BASOPHILS 0.03 0.00 - 0.20 x10'3/uL 12/25/2024 9:48 AM [facility] ABS. IMMATURE GRANULOCYTES 0.01 0.00 - 0.03 x10'3/uL 12/25/2024 9:48 AM AUTO PARTS COUNTER PERSON [facility] ABS. NUCLEATED RBC'S 0.00 0.00 - 0.01 x10'3/uL 12/25/2024 9:48 AM AUTO PARTS COUNTER PERSON [facility] 12/25/2024 9:35 AM AUTO PARTS COUNTER PERSON Hever Marc MD LABORATORY Final Result [facility] [address] [place] [address], documented in this encounter Visit Diagnoses Diagnosis Adenocarcinoma of pancreas (CMS/HCC HHS/HCC)- Primary Malignant neoplasm of pancreas, part unspecified documented in this encounter Care Teams Charter Representative Relationship Specialty Start Date End Date Jevon Pelletier MD [address] [facility] [place] [address] PCP - General FAMILY PRACTICE 10/16/16 Lavon Schuler MD [address] [place] [id number] Consulting Physician GASTROENTEROLOGY 08/11/20 Ravin Patel MD [address] [place] [address] Consulting Physician INTERVENTIONAL CARDIOLOGY 09/08/21 Leelee Montana, SPORT PSYCHOLOGIST- [address] [place], [place] [address] NURSE PRACTITIONER 09/08/21 documented as of this encounter
== END 2024-12-30 14:07 | disposition home or self-care (01) ==
PROVIDERS: PCP Family Medicine; Visit Provider Internal Medicine Hematology & Oncology
DX: Z45.2 Encounter for adjustment and management of vascular access device (principal); C25.9 Malignant neoplasm of pancreas, unspecified
CPT/HCPCS: 96523

== ENCOUNTER 2025-01-13 13:24 | Outpatient (CLI) | payer OTHER, SELFPAY ==
[2025-01-13] MEDS: HEPARIN SODIUM LOCK FLUSH 500 UNITS/5 ML SYRINGE IV PUSH (14:00)
--- NOTE | 2025-01-13 15:45 | PC.NURSE ---
1400 Tolerated chemo pump removal and port flush well. SEE MAR/patient care notes.
== END 2025-01-13 13:25 | disposition home or self-care (01) ==
PROVIDERS: PCP Family Medicine; Visit Provider Internal Medicine Hematology & Oncology
DX: Z45.2 Encounter for adjustment and management of vascular access device (principal); C25.9 Malignant neoplasm of pancreas, unspecified
CPT/HCPCS: 96523

== ENCOUNTER 2025-01-27 11:36 | Outpatient (CLI) | payer OTHER, SELFPAY ==
[2025-01-27] MEDS: SODIUM CHLORIDE 0.9% IV 1,000 ML 500 ML IVPB (11:45)
[2025-01-27 11:54] VITALS: BP 120/66; PULSE 72; RESP 16; TEMP 36.6; O2SAT 97; BMI 35.6
--- OUTSIDE RECORDS SUMMARY | 2025-01-27 13:33 | XMS_ITS | Encounter Summary ---
Author Organization [facility] Address [address] [place] [address] Care Team Providers Care Geospatial Information Scientist Name Role Phone Jevon Pelletier MD Primary Care Provider [phone] Nigel Petersen MD Unavailable [phone] Lavon Schuler MD Unavailable [phone] Ravin Patel MD Unavailable [phone] Leelee Montana [facility] Unavailable Encounter Details Date Type Department Care Team (Late st Contact Info) Description 11/18/2015 Abstract [facility] [address] [place] [address] Nigel Petersen MD [address] [place] [address] Social History Tobacco Use Types Packs/Day Years Used Date Smoking Tobacco: Never Alcohol Use Standard Drinks/Week Comments No 0 (1 standard drink = 0.6 oz pur e alcohol) Sex and Gender Information Value Date Recorded Sex Assigned at Male 12/25/2024 9:22 AM FRAMING AND HANGING Legal Sex Male 11:59 PM CDT Gender Identity Not on file Sexual Orientation Not on file 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 Not on file Not on file documented as of this encounter Plan of Treatment Not on file documented as of this encounter Visit Diagnoses Not on filedocumented in this encounter Additional Health Concerns Infection Onset Date Last Indicated Resolved Time COVID-19 Rule Out 09/12/2020 09/12/2020 09/13/2020 9:06 PM CDT COVID-19 Confirmed 09/12/2020 09/12/2020 12:34 AM FRAMING AND HANGING COVID-19 Rule Out 11/13/2020 11/13/2020 11/14/2020 10:26 PM FRAMING AND HANGING COVID-19 Rule Out 11/24/2022 11/24/2022 11/24/2022 5:19 PM FRAMING AND HANGING COVID-19 Rule Out 11/24/2022 11/24/2022 11/25/2022 11:58 AM FRAMING AND HANGING documented as of this encounter Care Teams Geospatial Information Scientist Relationship Specialty Start Date End Date Jevon Pelletier MD [address] [place] [phone] PCP - General FAMILY PRACTICE 10/16/16 Nigel Petersen MD [facility] [place] [address] [place] Art Sales Consultant CARDIOVASCULAR DISEASE 10/16/16 09/07/21 Lavon Schuler MD [address] [place] [id number] Consulting Physician GASTROENTEROLOGY 08/11/20 Ravin Patel MD [address] [place] [address] Consulting Physician INTERVENTIONAL CARDIOLOGY 09/08/21 Leelee [place], [facility]- [address] [place], [place] [address] NURSE PRACTITIONER 09/08/21 documented as of this encounter
--- OUTSIDE RECORDS SUMMARY | 2025-01-27 13:33 | XMS_ITS | Encounter Summary ---
Author Organization [facility] Address [address] [place] [address] Care Team Providers Care Chief Ophthalmic Technician Name Role Phone Jevon Pelletier MD Primary Care Provider [phone] Lavon Schuler MD Unavailable [phone] Ravin Patel MD Unavailable [phone] Leelee Montana [facility] Unavailable Encounter Details Date Type Department Care Team (Late st Contact Info) Description 01/22/2025 Orders Only [facility] [address] [facility] [place] [address] Hever Marc MD [address] [place] [id number] Social History Tobacco Use Types Packs/Day Years Used Date Smoking Tobacco: Never Smokeless Tobacco: Never Alcohol Use Standard Drinks/Week Comments No 0 (1 standard drink = 0.6 oz pur e alcohol) Sex and Gender Information Value Date Recorded Sex Assigned at Male 12/25/2024 9:22 AM STAFF DEVELOPMENT MANAGER Legal Sex Male 11:59 PM CDT Gender Identity Not on file Sexual Orientation Not on file 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 Answer Date of Assessment Author Status No 11/24/2022 9:28 PM STAFF DEVELOPMENT MANAGER Activ e * Do you have [...] encounter Results * (ABNORMAL) COMPREHENSIVE METABOLIC PANEL (01/22/2025 10:36 AM [facility]) SODIUM S/P/B 139 136 - 145 MMOL/L 01/22/2025 11:09 AM [facility] POTASSIUM S/P/B 4.1 3.5 - 5.1 MMOL/L 01/22/2025 11:09 AM [facility] CHLORIDE S/P/B 104 98 - 107 MMOL/L 01/22/2025 11:09 AM [facility] CO2 22.9 21.0 - 32.0 MMOL/L 01/22/2025 11:09 AM [facility] GLUCOSE 158(H) 70 - 99 MG/DL 01/22/2025 11:09 AM [facility] Comment: FASTING GLUCOSE 100 TO 125 MG/DL IS CONSISTENT WITH IMPAIRED FASTING GLUCOSE. FASTING GLUCOSE >125 MG/DL IS CONSISTENT WITH DIABETES. RANDOM GLUCOSE >200 MG/DL WITH HYPERGLYCEMIC SYMPTOMS IS CONSISTENT WITH DIABETES. PER ADA GUIDELINES BUN 5(L) 6 - 24 MG/DL 01/22/2025 11:09 AM [facility] CREATININE S/P/B 0.94 0.70 - 1.30 MG/DL 01/22/2025 11:09 AM [facility] CALCIUM S/P/B 9.0 8.4 - 10.5 MG/DL 01/22/2025 11:09 AM [facility] BILIRUBIN TOTAL S/P/B 0.4 0.2 - 1.0 MG/DL 01/22/2025 11:09 AM [facility] Comment: THIS ASSAY IS NOT RECOMMENDED FOR PATIENTS UNDERGOING TREATMENT WITH ELTROMBOPAG DUE TO THE POTENTIAL FOR FALSELY ELEVATED RESULTS. ALKALINE PHOSPHATASE S/P/B 94 45 - 115 U/L 01/22/2025 11:09 AM [facility] AST 32 15 - 37 U/L 01/22/2025 11:09 AM [facility] ALT 39 16 - 63 U/L 01/22/2025 11:09 AM [facility] TOTAL PROTEIN S/P/B 6.7 6.4 - 8.2 G/DL 01/22/2025 11:09 AM [facility] ALBUMIN S/P/B 3.4 3.4 - 5.0 G/DL 01/22/2025 11:09 AM [facility] ANION GAP 12.1 5.0 - 15.0 MMOL/L 01/22/2025 11:09 AM [facility] OSMOLALITY (CALC) 289 MOSM/KG 025 11:09 AM [facility] Comment:REFERENCE RANGE NOT ESTABLISHED GFR ESTIMATE >90 >89 ML/MIN/1. 73 M2 01/22/2025 11:09 AM [facility] GFR NOTES GFR REFERENCE S: 01/22/2025 11:09 AM STAFF DEVELOPMENT MANAGER [facility] Comment: THE ESTIMATED GFR IS [...] ml/min/1.73 m2 G5,KIDNEY FAILURE: <15 ml/min/1.73 m2 01/22/2025 10:3 6 AM STAFF DEVELOPMENT MANAGER Hever Marc MD LABORATORY Final Result [facility] [address] [place] [address], * (ABNORMAL) CBC W/DIFF AUTOMATED (01/22/2025 10:36 AM STAFF DEVELOPMENT MANAGER) WBC 4.98 4.00 - 10.80 x10'3/uL 01/22/2025 10:44 AM STAFF DEVELOPMENT MANAGER [facility] RBC 4.65 4.50 - 6.10 x10'6/uL 01/22/2025 10:44 AM [facility] HGB 14.4 13.0 - 18.0 G/DL 01/22/2025 10:44 AM STAFF DEVELOPMENT MANAGER [facility] HCT 42.7 37.0 - 52.0 % 01/22/2025 10:44 AM STAFF DEVELOPMENT MANAGER [facility] MCV 91.8 78.0 - 100.0 FL 01/22/2025 10:44 AM STAFF DEVELOPMENT MANAGER [facility] MCH 31.0 27.0 - 31.0 PG 01/22/2025 10:44 AM STAFF DEVELOPMENT MANAGER [facility] MCHC 33.7 33.0 - 36.0 G/DL 01/22/2025 10:44 AM STAFF DEVELOPMENT MANAGER [facility] RDW 18.5(H) 11.5 - 14.5 % 01/22/2025 10:44 AM [facility] PLT 114(L) 150 - 350 x10'3/uL 01/22/2025 10:44 AM [facility] MPV 9.8 7.4 - 10.4 FL 01/22/2025 10:44 AM [facility] CBC COMMENT NORMAL REFERENCE RANGE NOT ESTABLISHED FOR THE PROPORTIONAL LEUKOCYTE DIFFERENTIAL. 01/22/2025 10:44 AM [facility] NEUTROPHILS % 32.9 % 01/22/2025 11:22 AM [facility] LYMPHOCYTES % 49.4 % 01/22/2025 11:22 AM [facility] MONOCYTES % 14.1 % 01/22/2025 11:22 AM [facility] EOSINOPHILS % 3.0 % 01/22/2025 11:22 AM [facility] BASOPHILS % 0.6 % 01/22/2025 11:22 AM [facility] IMMATURE GRANS % 0.0 % 01/22/20 11:22 AM [facility] NRBC % 0.0 % 01/22/2025 11:22 AM [facility] ABS. NEUTROPHILS 1.64 1.60 - 8.30 x10'3/uL 01/22/2025 11:22 AM [facility] ABS. LYMPHOCYTES 2.46 0.80 - 4.70 x10'3/uL 01/22/2025 11:22 AM [facility] ABS. MONOCYTES 0.70 0.00 - 1.50 x10'3/uL 01/22/2025 11:22 AM [facility] ABS. EOSINOPHILS 0.15 0.00 - 0.40 x10'3/uL 01/22/2025 11:22 AM [facility] ABS. BASOPHILS 0.03 0.00 - 0.20 x10'3/uL 01/22/2025 11:22 AM [facility] ABS. IMMATURE GRANULOCYTES 0.00 0.00 - 0.03 x10'3/uL 01/22/2025 11:22 AM STAFF DEVELOPMENT MANAGER [facility] ABS. NUCLEATED RBC'S 0.00 0.00 - 0.01 x10'3/uL 01/22/2025 11:22 AM STAFF DEVELOPMENT MANAGER [facility] PLT MORPH. DECREASED 01/22/2025 11:22 AM STAFF DEVELOPMENT MANAGER [facility] RBC MORPHOLOGY NORMAL 01/22/2025 11:22 AM STAFF DEVELOPMENT MANAGER [facility] 01/22/2025 10:3 6 AM STAFF DEVELOPMENT MANAGER Hever Marc MD LABORATORY Final Result [facility] [address] [place] [address], documented in this encounter Visit Diagnoses Diagnosis Adenocarcinoma of pancreas (CMS/HCC HHS/HCC)- Primary Malignant neoplasm of pancreas, part unspecified documented in this encounter Care Teams Chief Ophthalmic Technician Relationship Specialty Start Date End Date Jevon Pelletier MD [address] [place] [address] [place] [id number] PCP - General FAMILY PRACTICE 10/16/16 Lavon Schuler MD [address] [place] [address] Consulting Physician GASTROENTEROLOGY 08/11/20 Ravin Patel MD [address] [place] [address] Consulting Physician INTERVENTIONAL CARDIOLOGY 09/08/21 Leelee Montana FNP- [address] [place] [address] NURSE PRACTITIONER 09/08/21 documented as of this encounter
--- OUTSIDE RECORDS SUMMARY | 2025-01-27 13:33 | XMS_ITS | Encounter Summary ---
Author Organization [facility] Address [address] [place] [address] Care Team Providers Care Forestry Fire Aide Name Role Phone Jevon Pelletier MD Primary Care Provider [phone] Lavon Schuler MD Unavailable [phone] Ravin Patel MD Unavailable [phone] Leelee Montana [facility] Unavailable Encounter Details Date Type Department Care Team (Late st Contact Info) Description 02/28/2024 [employer] Message Enc [facility] BUSINESS OFFICE 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 Answer Date of Assessment Author Status No 11/24/2022 9:28 PM WORKING FOREMAN Activ e * Do you have serious difficulty walking or climbing stairs? Answer Date of Assessment Author Status Yes 11/24/2022 9:28 PM WORKING FOREMAN Pily Olivera RN Active * Do you [...] on filedocumented in this encounter Care Teams Forestry Fire Aide Relationship Specialty Start Date End Date Jevon Pelletier MD [address] [facility] [place] [address] PCP - General FAMILY PRACTICE 10/16/16 Lavon Schuler MD [address] [place] [address] Consulting Physician GASTROENTEROLOGY 08/11/20 Ravin Patel MD [address] [place] [address] Consulting Physician INTERVENTIONAL CARDIOLOGY 09/08/21 Leelee Montana, [facility] [address] [place] [address] NURSE PRACTITIONER 09/08/21 documented as of this encounter
--- OUTSIDE RECORDS SUMMARY | 2025-01-27 13:33 | XMS_ITS | Clinical Summary ---
Author Organization [facility] Address [address] [place] [address] Care Team Providers Care Experimental Box Tester Name Role Phone Jevon Pelletier MD Primary Care Provider [phone] Lavon Schuler MD Unavailable [phone] Ravin Patel MD Unavailable [phone] Leelee Montana [facility] Unavailable Allergies Active Allergy Reactions Criticality Noted [...] initial encounter 09/2020 Acute on chronic pancreatitis ([facility]) 07/06/2020 Hemoglobin A1c 8.0% or greater 07/06/2020 Osteoarthritis of left knee 12/27/2016 Essential (primary) hypertension 11/09/2016 Class 3 severe obesity due t o excess calories with serious comorbidity in adult ([facility]) 11/09/2016 ALEJO (obstructive sleep apnea) 11/09/2016 Umbilical hernia 06/05/2016 Controlled type 2 diabetes m ellitus with diabetic neuropathy ([facility]) Diabetic neuropathy ([facility]) Hypertension Coronary artery disease Overview (07/06/2020): non-obstructive Resolved Problems Problem Noted Date Diagnosed Date Resolved Date Hypomagnesemia 07/06/2020 07/13/2020 Other chest pain 01/31/2018 02/16/2022 Hyperlipidemia, mixed 11/09/20162019 Morbid obesity ([facility]) 02/16/2022 Sleep apnea with use of cont inuous positive airway pressure (CPAP) 02/16/2022 Overview (07/06/2020): has not been using secondary to waiting for a chin strap Encounters Date Type Department Care Team Description 01/25/2025 Orders Only [facility] [address] [place] [address] Hever Marc MD 01/22/2025 10:25 AM ELECTRICAL EXPERIMENTAL MECHANIC - 01/22/2025 11:59 PM ELECTRICAL EXPERIMENTAL MECHANIC Hospital Encounter [facility] [address] [place] [address] Jevon Pelletier MD Khalid, Noor, MD Discharge Disposition: Home or Self Care (Routine Discharge) 01/22/2025 Orders Only [facility] [address] [place] [address] Hever Marc MD 01/22/2025 Travel 01/14/2025 8:27 AM ELECTRICAL EXPERIMENTAL MECHANIC - 01/14/2025 11:59 PM ELECTRICAL EXPERIMENTAL MECHANIC Hospital Encounter [facility] [address] [place] [address] Hever Marc MD Discharge Disposition: Home or Self Care (Routine Discharge) 01/14/2025 Orders Only [facility] [address] [place] [address] Hever Marc MD 01/14/2025 Travel 01/08/2025 7:33 AM ELECTRICAL EXPERIMENTAL MECHANIC - 01/08/2025 11:59 PM ELECTRICAL EXPERIMENTAL MECHANIC Hospital Encounter [facility] [address] [place] [address] Hever Marc MD Discharge Disposition: Home or Self Care (Routine Discharge) 01/08/2025 Orders Only [facility] [address] [place] [address] Hever Marc MD 01/08/2025 Travel 12/25/2024 9:23 AM ELECTRICAL EXPERIMENTAL MECHANIC - 12/25/2024 11:59 PM ELECTRICAL EXPERIMENTAL MECHANIC Hospital Encounter [facility] [place] [address] Hever Marc MD Discharge Disposition: Home or Self Care (Routine Discharge) 12/25/2024 Orders Only [facility] [address] [place] [address] Hever Marc MD 12/25/2024 Travel 12/11/2024 1:25 PM ELECTRICAL EXPERIMENTAL MECHANIC - 12/11/2024 11:59 PM ELECTRICAL EXPERIMENTAL MECHANIC Hospital Encounter [facility] [address] [place] [address] Hveer Marc MD Discharge Disposition: Home or Self Care (Routine Discharge) 12/11/2024 Orders Only [facility] [address] [place] [address] Hever Marc MD 12/11/2024 Travel 11/27/2024 11:30 AM ELECTRICAL EXPERIMENTAL MECHANIC - 11/27/2024 11:59 PM ELECTRICAL EXPERIMENTAL MECHANIC Hospital Encounter [facility] [address] [place] [address] Hever Marc MD Discharge Disposition: Home or Self Care (Routine Discharge) 11/27/2024 Orders Only [facility] [address] [place] [place] [address] Hever Marc MD 11/27/2024 Travel 11/13/2024 10:48 AM ELECTRICAL EXPERIMENTAL MECHANIC - 11/13/2024 11:59 PM ELECTRICAL EXPERIMENTAL MECHANIC Hospital Encounter [facility] [address] [place] [address] Hever Marc MD Discharge Disposition: Home or Self Care (Routine Discharge) 11/13/2024 Orders Only [facility] [address] [place] [address] Hever Marc MD 11/13/2024 Travel 10/28/2024 8:19 AM ELECTRICAL EXPERIMENTAL MECHANIC - 10/28/2024 11:59 PM ELECTRICAL EXPERIMENTAL MECHANIC Hospital Encounter [facility] [address] [place] [address] Hever Marc MD Discharge Disposition: Home or Self Care (Routine Discharge) 10/28/2024 Orders Only [facility] [address] [place] [address] Hever Marc MD 10/28/2024 Travel from Last 3 Months Family History [...] Sex Assigned at Male 12/25/2024 9:22 AM ELECTRICAL EXPERIMENTAL MECHANIC Legal Sex Male 11:59 PM CDT Gender Identity Not on file Sexual Orientation Not on file 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 Not on file Not on file Last Filed Vital Signs Vital Sign Reading Time Taken Comments Blood Pressure 110/74 11/27/2022 8:42 AM ELECTRICAL EXPERIMENTAL MECHANIC Pulse 79 11/27/2022 8:42 AM ELECTRICAL EXPERIMENTAL MECHANIC Temperature 35.9 C (96.6 F) 11/27/2022 6:05 AM ELECTRICAL EXPERIMENTAL MECHANIC Respiratory Rate 20 11/27/2022 6:05 AM ELECTRICAL EXPERIMENTAL MECHANIC Oxygen Saturation 94% 11/27/2022 6:05 AM ELECTRICAL EXPERIMENTAL MECHANIC Inhaled Oxygen Concentration - - Weight 131.6 kg (290 lb 3.2 oz) 11/24/2022 9:37 PM ELECTRICAL EXPERIMENTAL MECHANIC Height 177.8 cm (5' 10 ) 11/24/2022 9:37 PM ELECTRICAL EXPERIMENTAL MECHANIC Body Mass Index 41.64 11/24/2022 9:37 PM ELECTRICAL EXPERIMENTAL MECHANIC Plan of Treatment Health Maintenance Due Date [...] 1-dose series) 2020 Hemoglobin A1C 04/20/2021 10/21/2020, 08/0 04/2020, 05/22/2016 ASCVD LDL 07/27/2021 07/27/2020, 07/02, [...] Cottrell RN Medical Devices Implanted Type Area Composition Floor Setter Device Identifier Shelf Expiration Date Model / Serial / Lot Kit Ar[employer]rex Bioanchor Speedbridge 5.5 Swivelock - [id number] Implanted:Qty: 1 on 11/16/2020 by Franc Casas MD at [facility] Brandt Left: Shoulder [employer] [id number] 08/01/2024 AR-2600SB S-5 / / [id number] Kit [employer] Bioanchor Speedbridge 5.5 Swivelock - [id number] Implanted:Qty: 1 on 11/16/2020 by Franc Casas MD at [facility] Brandt Left: Shoulder [employer] [id number] 08/01/2024 AR-2600SB S-5 / / [id number] Implant System, Proximal Tenodesis Implanted:Qty: 1 on 11/16/2020 by Franc Casas MD at [facility] Left: Shoulder 03/31/2025 [id number] / / [id number] Procedures Procedure Name Priority Date/Time Associated Diagnosis Comments COMPREHENSIVE METABOLIC PANEL Routine 01/22/2025 10:36 AM ELECTRICAL EXPERIMENTAL MECHANIC Adenocarcinoma of pancreas (CMS/HCC HHS/HCC) CBC W/DIFF AUTOMATED Routine 01/22/2025 10:36 AM ELECTRICAL EXPERIMENTAL MECHANIC Adenocarcinoma of pancreas (CMS/HCC HHS/HCC) COMPREHENSIVE METABOLIC PANEL Routine 01/14/2025 8:35 AM ELECTRICAL EXPERIMENTAL MECHANIC Adenocarcinoma of pancreas (CMS/HCC HHS/HCC) COMPREHENSIVE METABOLIC PANEL Routine 01/08/2025 7:46 AM ELECTRICAL EXPERIMENTAL MECHANIC Adenocarcinoma of pancreas (CMS/HCC HHS/HCC) CBC W/DIFF AUTOMATED Routine 01/08/2025 7:46 AM ELECTRICAL EXPERIMENTAL MECHANIC Adenocarcinoma of pancreas (CMS/HCC HHS/HCC) COMPREHENSIVE METABOLIC PANEL Routine 12/25/2024 9:35 AM ELECTRICAL EXPERIMENTAL MECHANIC Adenocarcinoma of pancreas (CMS/HCC HHS/HCC) CBC W/DIFF AUTOMATED Routine 12/25/2024 9:35 AM ELECTRICAL EXPERIMENTAL MECHANIC Adenocarcinoma of pancreas (CMS/HCC HHS/HCC) COMPREHENSIVE METABOLIC PANEL Routine 12/11/2024 1:44 PM ELECTRICAL EXPERIMENTAL MECHANIC Adenocarcinoma of pancreas (CMS/HCC HHS/HCC) CBC W/DIFF AUTOMATED Routine 12/11/2024 1:44 PM ELECTRICAL EXPERIMENTAL MECHANIC Adenocarcinoma of pancreas (CMS/HCC HHS/HCC) COMPREHENSIVE METABOLIC PANEL Routine 11/27/2024 11:40 AM ELECTRICAL EXPERIMENTAL MECHANIC Adenocarcinoma of pancreas (CMS/HCC HHS/HCC) CBC W/DIFF AUTOMATED Routine 11/27/2024 11:40 AM ELECTRICAL EXPERIMENTAL MECHANIC Adenocarcinoma of pancreas (CMS/HCC HHS/HCC) COMPREHENSIVE METABOLIC PANEL Routine 11/13/2024 10:58 AM ELECTRICAL EXPERIMENTAL MECHANIC Adenocarcinoma of pancreas (CMS/HCC HHS/HCC) CBC W/DIFF AUTOMATED Routine 11/13/2024 10:58 AM ELECTRICAL EXPERIMENTAL MECHANIC Adenocarcinoma of pancreas (CMS/HCC HHS/HCC) IMMUNOASY TUMOR AG CA 19-9 Routine 11/13/2024 10:58 AM ELECTRICAL EXPERIMENTAL MECHANIC Adenocarcinoma of pancreas (CMS/HCC HHS/HCC) COMPREHENSIVE METABOLIC PANEL Routine 10/28/2024 8:26 AM ELECTRICAL EXPERIMENTAL MECHANIC Adenocarcinoma of pancreas (CMS/HCC HHS/HCC) CBC W/DIFF AUTOMATED Routine 10/28/2024 8:26 AM ELECTRICAL EXPERIMENTAL MECHANIC Adenocarcinoma of pancreas ([facility] HHS/HCC) COLONOSCOPY 05/26/2021 10:08 AM CDT HEMOGLOBIN, GLYCOSYLATED Routine 10/21/2020 1:39 PM ELECTRICAL EXPERIMENTAL MECHANIC Controlled type 2 diabetes mellitus with diabetic neuropathy, unspecified whether long-term insulin use ([facility]) LIPID PANEL (OUTSIDE LAB) Routine 07/27/2020 from Last 3 Months or Most Recently Relevant to Health Maintenance Results * (ABNORMAL) COMPREHENSIVE METABOLIC PANEL (01/22/2025 10:36 AM ELECTRICAL EXPERIMENTAL MECHANIC) Only the most recent of8 resultswithin the time period is included. SODIUM S/P/B 139 136 - 145 MMOL/L 01/22/2025 11:09 AM [facility] POTASSIUM S/P/B 4.1 3.5 - 5.1 MMOL/L 01/22/2025 11:09 AM [facility] CHLORIDE S/P/B 104 98 - 107 MMOL/L 01/22/2025 11:09 AM [facility] CO2 22.9 21.0 - 32.0 MMOL/L 01/22/2025 11:09 AM [facility] GLUCOSE 158(H) 70 - 99 MG/DL 01/22/2025 11:09 AM [facility] Comment: FASTING GLUCOSE 100 TO 125 MG/DL IS CONSISTENT WITH IMPAIRED FASTING GLUCOSE. FASTING GLUCOSE >125 MG/DL IS CONSISTENT WITH DIABETES. RANDOM GLUCOSE >200 MG/DL WITH HYPERGLYCEMIC SYMPTOMS IS CONSISTENT WITH DIABETES. PER ADA GUIDELINES BUN 5(L) 6 - 24 MG/DL 01/22/2025 11:09 AM [facility] CREATININE S/P/B 0.94 0.70 - 1.30 MG/DL 01/22/2025 11:09 AM [facility] CALCIUM S/P/B 9.0 8.4 - 10.5 MG/DL 01/22/2025 11:09 AM [facility] BILIRUBIN TOTAL S/P/B 0.4 0.2 - 1.0 MG/DL 01/22/2025 11:09 AM [facility] Comment: THIS ASSAY IS NOT RECOMMENDED FOR PATIENTS UNDERGOING TREATMENT WITH ELTROMBOPAG DUE TO THE POTENTIAL FOR FALSELY ELEVATED RESULTS. ALKALINE PHOSPHATASE S/P/B 94 45 - 115 U/L 01/22/2025 11:09 AM [facility] AST 32 15 - 37 U/L 01/22/2025 11:09 AM [facility] ALT 39 16 - 63 U/L 01/22/2025 11:09 AM [facility] TOTAL PROTEIN S/P/B 6.7 6.4 - 8.2 G/DL 01/22/2025 11:09 AM [facility] ALBUMIN S/P/B 3.4 3.4 - 5.0 G/DL 01/22/2025 11:09 AM [facility] ANION GAP 12.1 5.0 - 15.0 MMOL/L 01/22/2025 11:09 AM [facility] OSMOLALITY (CALC) 289 MOSM/KG 025 11:09 AM [facility] Comment:REFERENCE RANGE NOT ESTABLISHED GFR ESTIMATE >90 >89 ML/MIN/1. 73 M2 01/22/2025 11:09 AM [facility] GFR NOTES GFR REFERENCE S: 01/22/2025 11:09 AM [facility] Comment: THE ESTIMATED GFR IS [...] <15 ml/min/1.73 m2 01/22/2025 10:3 6 AM ELECTRICAL EXPERIMENTAL MECHANIC us Hever Marc MD LABORATORY Final Result [facility] [address] [place] [address], * (ABNORMAL) CBC W/DIFF AUTOMATED (01/22/2025 10:36 AM ELECTRICAL EXPERIMENTAL MECHANIC) Only the most recent of7 resultswithin the time period is included. WBC 4.98 4.00 - 10.80 x10'3/uL 01/22/2025 10:44 AM [facility] RBC 4.65 4.50 - 6.10 x10'6/uL 01/22/2025 10:44 AM [facility] HGB 14.4 13.0 - 18.0 G/DL 01/22/2025 10:44 AM [facility] HCT 42.7 37.0 - 52.0 % 01/22/2025 10:44 AM [facility] MCV 91.8 78.0 - 100.0 FL 01/22/2025 10:44 AM [facility] MCH 31.0 27.0 - 31.0 PG 01/22/2025 10:44 AM [facility] MCHC 33.7 33.0 - 36.0 G/DL 01/22/2025 10:44 AM [facility] RDW 18.5(H) 11.5 - 14.5 % 01/22/2025 10:44 AM [facility] PLT 114(L) 150 - 350 x10'3/uL 01/22/2025 10:44 AM [facility] MPV 9.8 7.4 - 10.4 FL 01/22/2025 10:44 AM [facility] CBC COMMENT NORMAL REFERENCE RANGE NOT ESTABLISHED FOR THE PROPORTIONAL LEUKOCYTE DIFFERENTIAL. 01/22/2025 10:44 AM [facility] NEUTROPHILS % 32.9 % 01/22/2025 11:22 AM [facility] LYMPHOCYTES % 49.4 % 01/22/2025 11:22 AM [facility] MONOCYTES % 14.1 % 01/22/2025 11:22 AM [facility] EOSINOPHILS % 3.0 % 01/22/2025 11:22 AM [facility] BASOPHILS % 0.6 % 01/22/2025 11:22 AM [facility] IMMATURE GRANS % 0.0 % 01/22/20 11:22 AM [facility] NRBC % 0.0 % 01/22/2025 11:22 AM [facility] ABS. NEUTROPHILS 1.64 1.60 - 8.30 x10'3/uL 01/22/2025 11:22 AM [facility] ABS. LYMPHOCYTES 2.46 0.80 - 4.70 x10'3/uL 01/22/2025 11:22 AM [facility] ABS. MONOCYTES 0.70 0.00 - 1.50 x10'3/uL 01/22/2025 11:22 AM [facility] ABS. EOSINOPHILS 0.15 0.00 - 0.40 x10'3/uL 01/22/2025 11:22 AM [facility] ABS. BASOPHILS 0.03 0.00 - 0.20 x10'3/uL 01/22/2025 11:22 AM [facility] ABS. IMMATURE GRANULOCYTES 0.00 0.00 - 0.03 x10'3/uL 01/22/2025 11:22 AM [facility] ABS. NUCLEATED RBC'S 0.00 0.00 - 0.01 x10'3/uL 01/22/2025 11:22 AM [facility] PLT MORPH. DECREASED 01/22/2025 11:22 AM [facility] RBC MORPHOLOGY NORMAL 01/22/2025 11:22 AM [facility] 01/22/2025 10:3 6 AM ELECTRICAL EXPERIMENTAL MECHANIC Hever Marc MD LABORATORY Final Result [facility] [address] [place] [address], [place] [phone] * (ABNORMAL) IMMUNOASY TUMOR AG CA 19-9 (11/13/2024 10:58 AM ELECTRICAL EXPERIMENTAL MECHANIC) CA 19-9 37(H) <34 U/mL 11/17/2024 9:42 PM ELECTRICAL EXPERIMENTAL MECHANIC [email or web address] Comment: This test was performed using the Siemens chemiluminescent method. Values obtained from different assay methods cannot be used inter- changeably. CA 19-9 levels, regardless of value, should not be interpreted as absolute evidence of the presence or absence of disease. Test Performed by [employer], [facility], [address] [place] [address] Aaron Mccall M.D., Ph.D., Director of Laboratories , [facility] [id number] 11/13/2024 10:5 8 AM ELECTRICAL EXPERIMENTAL MECHANIC Hever Marc MD LABORATORY Final Result Performing Organization Address [facility]/ZIP Co de Phone Number [employer] [address] , [place] [phone] * COLONOSCOPY (05/26/2021 10:08 AM CDT) us Yobany Stern MD GI PROCEDURE ORDERABLES Final Result * (ABNORMAL) HEMOGLOBIN, GLYCOSYLATED (10/21/2020 1:39 PM ELECTRICAL EXPERIMENTAL MECHANIC) HGB A1C 7.5(H) <5.7 % 10/21/2020 1:55 PM ELECTRICAL EXPERIMENTAL MECHANIC [facility] Comment: 5.7 TO 6.4% INCREASED RISK OF DIABETES > OR = 6.5% CONSISTENT WITH DIABETES PER ADA GUIDELINES ESTIMATED AVG GLUCOSE 169(H) 70 - 140 MG/DL 10/21/2020 1:55 PM ELECTRICAL EXPERIMENTAL MECHANIC [facility] 10/21/2020 1:39 PM ELECTRICAL EXPERIMENTAL MECHANIC Franc Casas MD LABORATORY Final Result [facility] [address] [place] [address], * LIPID PANEL (OUTSIDE LAB) (07/27/2020) CHOLESTEROL 122 TRIGLYCERIDES 250 HDL 35 LDL (CALCULATED) 37 VLDL CALCULATION 50 CHOL/HDL RATIO 3.5 07/27/2020 us Doc [facility] Abstract LAB-OUTSIDE/ABSTRACTED Final Result from Last 3 Months or Most Recently Relevant to Health Maintenance Insurance [facility] Advance Directives * Full Code (Latest Code Status on File) Date Activated Date Inactivated Comments 11/25/2022 5:07 PM 11/27/2022 1:35 PM * Full Code Date Activated Date Inactivated Comments 07/06/2020 2:42 PM 07/13/2020 6:06 PM Care Teams Experimental Box Tester Relationship Specialty [place] [address] [place] [address] [place] [address] PCP - General FAMILY PRACTICE 10/16/16 Lavon Schuler MD [address] [place] [address] Consulting Physician GASTROENTEROLOGY 08/11/20 Ravin Patel MD [address] [place] [address] Consulting Physician INTERVENTIONAL CARDIOLOGY 09/08/21 Leelee Montana, [facility]- [address] [place] [address] NURSE PRACTITIONER 09/08/21
--- OUTSIDE RECORDS SUMMARY | 2025-01-27 13:33 | XMS_ITS | Encounter Summary ---
Author Organization [facility] Address [address] [place] [address] Care Team Providers Care Computer Discovery Teacher Name Role Phone Jevon Pelletier MD Primary Care Provider [phone] Nigel Petersen MD Unavailable [phone] Lavon Schuler MD Unavailable [phone] Ravin Patel MD Unavailable [phone] Leelee Montana [facility] Unavailable Encounter Details Date Type Department Care Team (Late st Contact Info) Description 05/09/2019 Abstract [facility] [address] [place] [address] , Generic Conversion, Social History Tobacco Use Types Packs/Day Years Used Date Smoking Tobacco: Never Smokeless Tobacco: Never Alcohol Use Standard Drinks/Week Comments No 0 (1 standard drink = 0.6 oz pur e alcohol) Sex and Gender Information Value Date Recorded Sex Assigned at Male 12/25/2024 9:22 AM COAGULATING BATH MIXER Legal Sex Male 11:59 PM CDT Gender Identity Not on file Sexual Orientation Not on file 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 Not on file Not on file documented as of this encounter Plan of Treatment Not on file documented as of this encounter Visit Diagnoses Not on filedocumented in this encounter Additional Health Concerns Infection Onset Date Last Indicated Resolved Time COVID-19 Rule Out 09/12/2020 09/12/2020 09/13/2020 9:06 PM CDT COVID-19 Confirmed 09/12/2020 09/12/2020 0 12:34 AM COAGULATING BATH MIXER COVID-19 Rule Out 11/13/2020 11/13/2020 11/14/2020 10:26 PM COAGULATING BATH MIXER COVID-19 Rule Out 11/24/2022 11/24/2022 11/24/2022 5:19 PM COAGULATING BATH MIXER COVID-19 Rule Out 11/24/2022 11/24/2022 11/25/2022 11:58 AM COAGULATING BATH MIXER documented as of this encounter Care Teams Computer Discovery Teacher Relationship Specialty Start Date End Date Jevon Pelletier MD [address] [place] [address] PCP - General FAMILY PRACTICE 10/16/16 Nigel Petersen MD [facility] [place] [address] [place] [employer] Attendant CARDIOVASCULAR DISEASE 10/16/16 09/07/21 Lavon Schuler MD [address] [place] [address] Consulting Physician GASTROENTEROLOGY 08/11/20 Ravin Patel MD [address] [place] [address] Consulting Physician INTERVENTIONAL CARDIOLOGY 09/08/21 Leelee Montana, [facility] [address] [place] [address] NURSE PRACTITIONER 09/08/21 documented as of this encounter
--- OUTSIDE RECORDS SUMMARY | 2025-01-27 13:33 | XMS_ITS | Encounter Summary ---
Author Organization [facility] Address [address] [place] [address] Care Team Providers Care Export Specialist Name Role Phone Jevon Pelletier MD Primary Care Provider [phone] Nigel Petersen MD Unavailable [phone] Lavon Schuler MD Unavailable [phone] Ravin Patel MD Unavailable [phone] Leelee Montana [facility] Unavailable Encounter Details Date Type Department Care Team (Late st Contact Info) Description 08/16/2020 Abstract [facility] [address] [place] [id number] Abstract, Doc [facility] Social History Tobacco Use Types Packs/Day Years Used Date Smoking Tobacco: Never Smokeless Tobacco: Never Alcohol Use Standard Drinks/Week Comments No 0 (1 standard drink = 0.6 oz pur e alcohol) Sex and Gender Information Value Date Recorded Sex Assigned at Male 12/25/2024 9:22 AM FUNERAL SERVICE LICENSEE Legal Sex Male 11:59 PM CDT Gender Identity Not on file Sexual Orientation Not on file 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 Not on file Not [...] PM CDT Belia Shaffer RN Active documented as of this encounter [...] COVID-19 Confirmed 09/12/2020 09/12/2020 0 12:34 AM FUNERAL SERVICE LICENSEE COVID-19 Rule Out 11/13/2020 11/13/2020 11/14/2020 10:26 PM FUNERAL SERVICE LICENSEE COVID-19 Rule Out 11/24/2022 11/24/2022 11/24/2022 5:19 PM FUNERAL SERVICE LICENSEE COVID-19 Rule Out 11/24/2022 11/24/2022 11/25/2022 11:58 AM FUNERAL SERVICE LICENSEE documented as of this encounter Care Teams Export Specialist Relationship Specialty Start Date End Date Jevon Pelletier MD [address] [place] [phone] PCP - General FAMILY PRACTICE 10/16/16 Nigel Petersen MD [address] [place] [address] [place] [employer] CARDIOVASCULAR DISEASE 10/16/16 09/07/21 Lavon Schuler MD [address] [place] [address] Consulting Physician GASTROENTEROLOGY 08/11/20 Ravin Ptael MD [address] [place] [address] Consulting Physician INTERVENTIONAL CARDIOLOGY 09/08/21 Leelee Montana, [facility]- [address] [place] [address] NURSE PRACTITIONER 09/08/21 documented as of this encounter
[2025-01-27 13:45] VITALS: BP 129/66; PULSE 72; RESP 14; TEMP 36.4; O2SAT 97
[2025-01-27] MEDS: HEPARIN SODIUM LOCK FLUSH 500 UNITS/5 ML SYRINGE IV PUSH (13:47)
--- NOTE | 2025-01-27 13:49 | PC.NURSE ---
Patient here today to removed chemo pump and receive 1 L normal saline. Procedure explained. Education given about infusion of normal saline. No concerns voiced. SEE MAR/patient care notes. Tolerated pump removal and infusion well.
== END 2025-01-27 11:37 | disposition home or self-care (01) ==
PROVIDERS: PCP Family Medicine; Visit Provider Internal Medicine Hematology & Oncology
DX: C25.9 Malignant neoplasm of pancreas, unspecified (principal)
CPT/HCPCS: 96360; 96361; J7030

== ENCOUNTER 2025-02-17 11:21 | Outpatient (CLI) | payer OTHER, SELFPAY ==
[2025-02-17] MEDS: SODIUM CHLORIDE 0.9% IV 1,000 ML 500 ML IVPB (11:30)
[2025-02-17 11:35] VITALS: BP 103/63; PULSE 78; RESP 16; TEMP 36.3; O2SAT 95
[2025-02-17 11:43] VITALS: BMI 37.0
[2025-02-17] MEDS: HEPARIN SODIUM LOCK FLUSH 500 UNITS/5 ML SYRINGE IV PUSH (12:48)
--- OUTSIDE RECORDS SUMMARY | 2025-02-17 13:23 | XMS_ITS | Encounter Summary ---
Author Organization [facility] Address [address] [place] [address] Care Team Providers Care Senior Power Plant Operator Name Role Phone Jevon Pelletier MD Primary Care Provider [phone] Nigel Petersen MD Unavailable [phone] Lavon Schuler MD Unavailable [phone] Ravin Patel MD Unavailable [phone] Leelee Montana [facility] Unavailable Encounter Details Date Type Department Care Team (Late st Contact Info) Description 11/18/2015 Abstract [facility] [address] [place] [address] Nigel Petersen MD [address] [place] [address] Social History Tobacco Use Types Packs/Day Years Used Date Smoking Tobacco: Never Alcohol Use Standard Drinks/Week Comments No 0 (1 standard drink = 0.6 oz pur e alcohol) Sex and Gender Information Value Date Recorded Sex Assigned at Male 12/25/2024 9:22 AM CINNAMON GRINDER Legal Sex Male 11:59 PM CDT Gender Identity Not on file Sexual Orientation Not on file 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 Not on file Not on file documented as of this encounter Plan of Treatment Not on file documented as of this encounter Visit Diagnoses Not on filedocumented in this encounter Additional Health Concerns Infection Onset Date Last Indicated Resolved Time COVID-19 Rule Out 09/12/2020 09/12/2020 09/13/2020 9:06 PM CDT COVID-19 Confirmed 09/12/2020 09/12/2020 12:34 AM CINNAMON GRINDER COVID-19 Rule Out 11/13/2020 11/13/2020 11/14/2020 10:26 PM CINNAMON GRINDER COVID-19 Rule Out 11/24/2022 11/24/2022 11/24/2022 5:19 PM CINNAMON GRINDER COVID-19 Rule Out 11/24/2022 11/24/2022 11/25/2022 11:58 AM CINNAMON GRINDER documented as of this encounter Care Teams Senior Power Plant Operator Relationship Specialty Start Date End Date Jevon Pelletier MD [address] [place] [phone] PCP - General FAMILY PRACTICE 10/16/16 Nigel Petersen MD [facility] [place] [phone] [employer] Breakfast Server CARDIOVASCULAR DISEASE 10/16/16 09/07/21 Lavon Schuler MD [address] [place] [address] [phone] Consulting Physician GASTROENTEROLOGY 08/11/20 Ravin Patel MD [address] [place] [address] [phone] Consulting Physician INTERVENTIONAL CARDIOLOGY 09/08/21 Leelee Montana, [facility]- [address] [place] [address] [phone] NURSE PRACTITIONER 09/08/21 documented as of this encounter
--- OUTSIDE RECORDS SUMMARY | 2025-02-17 13:23 | XMS_ITS | Encounter Summary ---
Author Organization [facility] Address [address] [place] [address] Care Team Providers Care Transformer Mechanic Name Role Phone Jevon Pelletier MD Primary Care Provider [phone] Nigel Petersen MD Unavailable [phone] Lavon Schuler MD Unavailable [phone] Ravin Patel MD Unavailable [phone] Leelee Montana [facility] Unavailable Encounter Details Date Type Department Care Team (Late st Contact Info) Description 08/16/2020 Abstract [facility] [address] [place] [phone] Abstract, Doc [facility] Social History Tobacco Use Types Packs/Day Years Used Date Smoking Tobacco: Never Smokeless Tobacco: Never Alcohol Use Standard Drinks/Week Comments No 0 (1 standard drink = 0.6 oz pur e alcohol) Sex and Gender Information Value Date Recorded Sex Assigned at Male 12/25/2024 9:22 AM NEEDLE PUNCH OPERATOR Legal Sex Male 11:59 PM CDT Gender Identity Not on file Sexual Orientation Not on file 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 Not on file [...] COVID-19 Confirmed 09/12/2020 09/12/2020 0 12:34 AM NEEDLE PUNCH OPERATOR COVID-19 Rule Out 11/13/2020 11/13/2020 11/14/2020 10:26 PM NEEDLE PUNCH OPERATOR COVID-19 Rule Out 11/24/2022 11/24/2022 11/24/2022 5:19 PM NEEDLE PUNCH OPERATOR COVID-19 Rule Out 11/24/2022 11/24/2022 11/25/2022 11:58 AM NEEDLE PUNCH OPERATOR documented as of this encounter Care Teams Transformer Mechanic Relationship Specialty Start Date End Date Jevon Pelletier MD [address] [place] [phone] PCP - General FAMILY PRACTICE 10/16/16 Nigel Petersen MD [address] [place] [phone] [place] Electrical Appliance Repairer CARDIOVASCULAR DISEASE 10/16/16 09/07/21 Lavon Schuler MD [address] [phone] Consulting Physician GASTROENTEROLOGY 08/11/20 Ravin Patel MD [address] [phone] Consulting Physician INTERVENTIONAL CARDIOLOGY 09/08/21 Leelee Mnotana, [facility]- [address] [place] [address] [phone] NURSE PRACTITIONER 09/08/21 documented as of this encounter
--- OUTSIDE RECORDS SUMMARY | 2025-02-17 13:23 | XMS_ITS | Encounter Summary ---
Author Organization [facility] Address [address] [place] [address] Care Team Providers Care Art Preparator Name Role Phone Jevon Pelletier MD Primary Care Provider [phone] Lavon Schuler MD Unavailable [phone] Ravin Patel MD Unavailable [phone] [facility] Unavailable Encounter Details Date Type Department Care Team (Late st Contact Info) Description 02/12/2025 Orders Only [facility] [address] [facility] [place] [address] Hever Marc MD [address] [place] [phone] Social History Tobacco Use Types Packs/Day Years Used Date Smoking Tobacco: Never Smokeless Tobacco: Never Alcohol Use Standard Drinks/Week Comments No 0 (1 standard drink = 0.6 oz pur e alcohol) Sex and Gender Information Value Date Recorded Sex Assigned at Male 12/25/2024 9:22 AM CHILDREN LIBRARIAN Legal Sex Male 11:59 PM CDT Gender Identity Not on file Sexual Orientation Not on file 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 Answer Date of Assessment Author Status No 11/24/2022 9:28 PM CHILDREN LIBRARIAN Activ e * Do you have serious [...] as of this encounter Results * (ABNORMAL) CBC W/DIFF AUTOMATED (02/12/2025 1:46 PM CDT) Pathologist [facility] WBC 4.76 4.00 - 10.80 x10'3/uL 02/12/2025 2:02 PM CDT [facility] RBC 4.66 4.50 - 6.10 x10'6/uL 02/12/2025 2:02 PM CDT [facility] HGB 14.8 13.0 - 18.0 G/DL 02/12/2025 2:02 PM CDT [facility] HCT 44.5 37.0 - 52.0 % 02/12/2025 2:02 PM CDT [facility] MCV 95.5 78.0 - 100.0 FL 02/12/2025 2:02 PM CDT [facility] MCH 31.8(H) 27.0 - 31.0 PG 02/12/2025 2:02 PM CDT [facility] MCHC 33.3 33.0 - 36.0 G/DL 02/12/2025 2:02 PM CDT [facility] RDW 16.7(H) 11.5 - 14.5 % 02/12/2025 2:02 PM CDT [facility] PLT 164 150 - 350 x10'3/uL 02/12/2025 2:02 PM CDT [facility] MPV 9.1 7.4 - 10.4 FL 02/12/2025 2:02 PM CDT [facility] CBC COMMENT NORMAL REFERENCE RANGE NOT ESTABLISHED FOR THE PROPORTIONAL LEUKOCYTE DIFFERENTIAL. 02/12/2025 2:02 PM CDT [facility] NEUTROPHILS % 30.3 % 02/12/2025 2:02 PM CDT [facility] LYMPHOCYTES % 51.7 % 02/12/2025 2:02 PM CDT [facility] MONOCYTES % 14.7 % 02/12/2025 2:02 PM CDT [facility] EOSINOPHILS % 2.5 % 02/12/2025 2:02 PM CDT [facility] BASOPHILS % 0.8 % 02/12/2025 2:02 PM CDT [facility] IMMATURE GRANS % 0.0 % 02/13/20 2:02 PM CDT [facility] NRBC % 0.0 % 02/12/2025 2:02 PM CDT [facility] ABS. NEUTROPHILS 1.44(L) 1.60 - 8.30 x10'3/uL 02/12/2025 2:02 PM CDT [facility] ABS. LYMPHOCYTES 2.46 0.80 - 4.70 x10'3/uL 02/12/2025 2:02 PM CDT [facility] ABS. MONOCYTES 0.70 0.00 - 1.50 x10'3/uL 02/12/2025 2:02 PM CDT [facility] ABS. EOSINOPHILS 0.12 0.00 - 0.40 x10'3/uL 02/12/2025 2:02 PM CDT [facility] ABS. BASOPHILS 0.04 0.00 - 0.20 x10'3/uL 02/12/2025 2:02 PM CDT [facility] ABS. IMMATURE GRANULOCYTES 0.00 0.00 - 0.03 x10'3/uL 02/12/2025 2:02 PM CDT [facility] ABS. NUCLEATED RBC'S 0.00 0.00 - 0.01 x10'3/uL 02/12/2025 2:02 PM CDT [facility] 02/12/2025 1:46 PM CDT us Hever Marc MD LABORATORY Final Result [facility] [address] [place] [address], * (ABNORMAL) COMPREHENSIVE METABOLIC PANEL (02/12/2025 1:46 PM CDT) SODIUM S/P/B 138 136 - 145 MMOL/L 02/12/2025 2:10 PM CDT [facility] POTASSIUM S/P/B 5.1 3.5 - 5.1 MMOL/L 02/12/2025 2:10 PM CDT [facility] CHLORIDE S/P/B 101 98 - 107 MMOL/L 02/12/2025 2:10 PM CDT [facility] CO2 25.5 21.0 - 32.0 MMOL/L 02/12/2025 2:10 PM CDT [facility] GLUCOSE 222(H) 70 - 99 MG/DL 02/12/2025 2:10 PM CDT [facility] Comment: FASTING GLUCOSE 100 TO 125 MG/DL IS CONSISTENT WITH IMPAIRED FASTING GLUCOSE. FASTING GLUCOSE >125 MG/DL IS CONSISTENT WITH DIABETES. RANDOM GLUCOSE >200 MG/DL WITH HYPERGLYCEMIC SYMPTOMS IS CONSISTENT WITH DIABETES. PER ADA GUIDELINES BUN 12 6 - 24 MG/DL 02/12/2025 2:10 PM CDT [facility] CREATININE S/P/B 1.01 0.70 - 1.30 MG/DL 02/12/2025 2:10 PM T [facility] CALCIUM S/P/B 9.3 8.4 - 10.5 MG/DL 02/12/2025 2:10 PM CDT [facility] BILIRUBIN TOTAL S/P/B 0.5 0.2 - 1.0 MG/DL 02/12/2025 2:10 PM CDT [facility] Comment: THIS ASSAY IS NOT RECOMMENDED FOR PATIENTS UNDERGOING TREATMENT WITH ELTROMBOPAG DUE TO THE POTENTIAL FOR FALSELY ELEVATED RESULTS. ALKALINE PHOSPHATASE S/P/B 101 45 - 115 U/L 02/12/2025 2:10 PM CDT [facility] AST 23 15 - 37 U/L 02/12/2025 2:10 PM CDT [facility] ALT 27 16 - 63 U/L 02/12/2025 2:10 PM CDT [facility] TOTAL PROTEIN S/P/B 6.9 6.4 - 8.2 G/DL 02/12/2025 2:10 PM T [facility] ALBUMIN S/P/B 3.5 3.4 - 5.0 G/DL 02/12/2025 2:10 PM [facility] ANION GAP 11.5 5.0 - 15.0 MMOL/L 02/12/2025 2:10 PM T [facility] OSMOLALITY (CALC) 293 MOSM/KG 025 2:10 PM T [facility] Comment:REFERENCE RANGE NOT ESTABLISHED GFR ESTIMATE 83(L) >89 ML/MIN/1. 73 M2 02/12/2025 2:10 PM T [facility] GFR NOTES GFR REFERENCE S: 02/12/2025 2:10 PM T [facility] Comment: THE ESTIMATED GFR IS [...] ml/min/1.73 m2 G5,KIDNEY FAILURE: <15 ml/min/1.73 m2 02/12/2025 1:46 PM CDT Hever Marc MD LABORATORY Final Result [facility] [address] [place] [address], documented in this encounter Visit Diagnoses Diagnosis Adenocarcinoma of pancreas (CMS/HCC HHS/HCC)- Primary Malignant neoplasm of pancreas, part unspecified documented in this encounter Care Teams Art Preparator Relationship Specialty Start Date End Date Jevon Pelletier MD [address] [place] [address] PCP - General FAMILY PRACTICE 10/16/16 Lavon Schuler MD [address] [place] [address] [phone] Consulting Physician GASTROENTEROLOGY 08/11/20 Ravin Patel MD [address] [place] [phone] Consulting Physician INTERVENTIONAL CARDIOLOGY 09/08/21 Leelee Montana FNP- [address] [place] [phone] NURSE PRACTITIONER 09/08/21 documented as of this encounter
--- OUTSIDE RECORDS SUMMARY | 2025-02-17 13:23 | XMS_ITS | Encounter Summary ---
Author Organization [facility] Address [address] [place] [address] Care Team Providers Care Ovens Supervisor Name Role Phone Jevon Pelletier MD Primary Care Provider [phone] Lavon Schuler MD Unavailable [phone] Ravin Patel MD Unavailable [phone] Leelee Montana [facility] Unavailable Encounter Details Date Type Department Care Team (Late st Contact Info) Description 02/28/2024 [employer] Message Enc [facility] Provider Action Required Social History Tobacco Use Types Packs/Day Years Used Date Smoking Tobacco: Never Smokeless Tobacco: Never Alcohol Use Standard Drinks/Week Comments No 0 (1 standard drink = 0.6 oz pur e alcohol) Sex and Gender Information Value Date Recorded Sex Assigned at Male 12/25/2024 9:22 AM CAR VARNISHER Legal Sex Male 11:59 PM CDT Gender Identity Not on file Sexual Orientation Not on file 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 Answer Date of Assessment Author Status No 11/24/2022 9:28 PM CAR VARNISHER Activ e * Do you have serious [...] on filedocumented in this encounter Care Teams Ovens Supervisor Relationship Specialty Start [place] [address] [place] [address] [place] [address] PCP - General FAMILY PRACTICE 10/16/16 Lavon Schuler MD [address] [place] [address] Consulting Physician GASTROENTEROLOGY 08/11/20 Ravin Patel MD [address] [place] [phone] Consulting Physician INTERVENTIONAL CARDIOLOGY 09/08/21 Leelee Montana, [facility] [address] [phone] NURSE PRACTITIONER 09/08/21 documented as of this encounter
--- OUTSIDE RECORDS SUMMARY | 2025-02-17 13:23 | XMS_ITS | Clinical Summary ---
Author Organization [facility] Address [address] [place] [address] Care Team Providers Care Dye Weigher Name Role Phone Jevon Pelletier MD Primary Care Provider [phone] Lavon Schuler MD Unavailable [phone] Ravin Patel MD Unavailable [phone] Leelee Montana [facility] Unavailable Allergies Active Allergy Reactions [...] initial encounter 09/2020 Acute on chronic pancreatitis ([facility]) 07/06/2020 Hemoglobin A1c 8.0% or greater 07/06/2020 Osteoarthritis of left knee 12/27/2016 Essential (primary) hypertension 11/09/2016 Class 3 severe obesity due t o excess calories with serious comorbidity in adult 11/09/2016 ALEJO (obstructive sleep apnea) 11/09/2016 Umbilical hernia 06/05/2016 Controlled type 2 diabetes m ellitus with diabetic neuropathy ([facility]) Diabetic neuropathy ([facility]) Hypertension Coronary artery disease Overview (07/06/2020): non-obstructive Resolved Problems Problem Noted Date Diagnosed Date Resolved Date Hypomagnesemia 07/06/2020 07/13/2020 Other chest pain 01/31/2018 02/16/2022 Hyperlipidemia, mixed 11/09/20162019 Morbid obesity 02/16/2022 Sleep apnea with use of cont inuous positive airway pressure (CPAP) 02/16/2022 Overview (07/06/2020): has not been using secondary to waiting for a chin strap Encounters Date Type Department Care Team Description 02/12/2025 1:35 PM CDT - 02/12/2025 11:59 PM CDT Hospital Encounter [facility] [address] [facility] [address] [place] [address] Jevon Pelletier MD Khalid, Noor, MD Discharge Disposition: Home or Self Care (Routine Discharge) 02/12/2025 Orders Only [facility] [id number] [place] [address] Albino Marc MD 02/12/2025 Travel 02/10/2025 Orders Only [facility] [address] [place] [address] Albino Marc MD 02/05/2025 6:00 AM STAFF AUDITOR - 02/05/2025 11:59 PM STAFF AUDITOR Hospital Encounter [facility] [place] [address] Albino Marc MD Discharge Disposition: Home or Self Care (Routine Discharge) 02/05/2025 Travel 02/03/2025 12:50 PM STAFF AUDITOR - 02/03/2025 11:59 PM STAFF AUDITOR Hospital Encounter [facility] [id number] [place] [address] Albino Marc MD Discharge Disposition: Home or Self Care (Routine Discharge) 02/03/2025 Orders Only [facility] [id number] [place] [address] Albino Marc MD 02/03/2025 Travel 01/28/2025 11:10 AM STAFF AUDITOR - 01/28/2025 11:59 PM STAFF AUDITOR Hospital Encounter [facility] [address] [place] [address] Albino Marc MD Discharge Disposition: Home or Self Care (Routine Discharge) 01/28/2025 11:09 AM STAFF AUDITOR Hospital Encounter [facility] [address] [place] [address] Albino Marc MD Discharge Disposition: Home or Self Care (Routine Discharge) 01/28/2025 11:07 AM STAFF AUDITOR - 01/28/2025 11:08 AM STAFF AUDITOR Hospital Encounter [facility] [address] [place] [address] Albino Marc MD Discharge Disposition: Home or Self Care (Routine Discharge) 01/28/2025 Orders Only [facility] [address] [place] [address] Albino Marc MD 01/28/2025 Travel 01/25/2025 Orders Only [facility] [address] [place] [address] Albino Marc MD 01/22/2025 10:25 AM STAFF AUDITOR - 01/22/2025 11:59 PM STAFF AUDITOR Hospital Encounter [facility] [address] [place] [address] Jevon Pelletier MD Khalid, Noor, MD Discharge Disposition: Home or Self Care (Routine Discharge) 01/22/2025 Orders Only [facility] [address] [place] [address] Albino Marc MD 01/22/2025 Travel 01/14/2025 8:27 AM STAFF AUDITOR - 01/14/2025 11:59 PM STAFF AUDITOR Hospital Encounter [facility] [address] [place] [address] Albino Marc MD Discharge Disposition: Home or Self Care (Routine Discharge) 01/14/2025 Orders Only [facility] [address] [place] [address] Albino Marc MD 01/14/2025 Travel 01/08/2025 7:33 AM STAFF AUDITOR - 01/08/2025 11:59 PM STAFF AUDITOR Hospital Encounter [facility] [address] [place] [address] Albino Marc MD Discharge Disposition: Home or Self Care (Routine Discharge) 01/08/2025 Orders Only [facility] [address] [place] [address] Albino Marc MD 01/08/2025 Travel 12/25/2024 9:23 AM STAFF AUDITOR - 12/25/2024 11:59 PM STAFF AUDITOR Hospital Encounter [facility] [address] [place] [address] Albino Marc MD Discharge Disposition: Home or Self Care (Routine Discharge) 12/25/2024 Orders Only [facility] [address] [place] [address] Albino Marc MD 12/25/2024 Travel 12/11/2024 1:25 PM STAFF AUDITOR - 12/11/2024 11:59 PM STAFF AUDITOR Hospital Encounter [facility] [address] [place] [address] Albino Marc MD Discharge Disposition: Home or Self Care (Routine Discharge) 12/11/2024 Orders Only [facility] [address] [place] [address] Albino Marc MD 12/11/2024 Travel 11/27/2024 11:30 AM STAFF AUDITOR - 11/27/2024 11:59 PM STAFF AUDITOR Hospital Encounter [facility] [address] [place] [address] Albino Marc MD Discharge Disposition: Home or Self Care (Routine Discharge) 11/27/2024 Orders Only [facility] [address] [place] [address] Albino Marc MD 11/27/2024 Travel from Last 3 Months Family History [...] Assigned at Male 12/25/2024 9:22 AM STAFF AUDITOR Legal Sex Male 11:59 PM CDT Gender Identity Not on file Sexual Orientation Not on file 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 Not on file Not on file Not on file Last Filed Vital Signs Vital Sign Reading Time Taken Comments Blood Pressure 110/74 11/27/2022 8:42 AM STAFF AUDITOR Pulse 79 11/27/2022 8:42 AM STAFF AUDITOR Temperature 35.9 C (96.6 F) 11/27/2022 6:05 AM STAFF AUDITOR Respiratory Rate 20 11/27/2022 6:05 AM STAFF AUDITOR Oxygen Saturation 94% 11/27/2022 6:05 AM STAFF AUDITOR Inhaled Oxygen Concentration - - Weight 131.6 kg (290 lb 3.2 oz) 11/24/2022 9:37 PM STAFF AUDITOR Height 177.8 cm (5' 10 ) 11/24/2022 9:37 PM STAFF AUDITOR Body Mass Index 41.64 11/24/2022 9:37 PM STAFF AUDITOR Plan of Treatment Health Maintenance Due Date [...] 08/0 04/2020, 05/22/2016 ASCVD LDL 07/27/2021 07/27/2020, 081 , 07/07/2020, Additional history exists Lipid Panel 07/27/2021 [...] ADLs upon discharge from hospital Lifestyle No Lucho Cottrelli M, RN Medical Devices Implanted Type Area Meter Repairer Device Identifier Shelf Expiration Date Model / Serial / Lot Kit Ar[employer] Bioanchor Speedbridge 5.5 Swivelock - [id number] Implanted:Qty: 1 on 11/16/2020 by Franc Casas MD at [facility] Left: Shoulder [employer] [id number] 08/01/2024 AR-2600SB S-5 / / [id number] Kit [employer] Bioanchor Speedbridge 5.5 Swivelock - [id number] Implanted:Qty: 1 on 11/16/2020 by Franc Casas MD at [facility] [place] Left: Shoulder [employer] [id number] 08/01/2024 AR-2600SB S-5 / / [id number] Implant System, Proximal Tenodesis Implanted:Qty: 1 on 11/16/2020 by Franc Casas MD at [facility] Left: Shoulder 03/31/2025 [id number] / / [id number] Procedures Procedure Name Priority Date/Time Associated Diagnosis Comments CBC W/DIFF AUTOMATED Routine 02/12/2025 1:46 PM CDT Adenocarcinoma of pancreas (CMS/HCC HHS/HCC) COMPREHENSIVE METABOLIC PANEL Routine 02/12/2025 1:46 PM CDT Adenocarcinoma of pancreas (CMS/HCC HHS/HCC) USE ECHOCARDIOGRAM Routine 02/05/2025 6: 37 AM STAFF AUDITOR Chest pain COMPREHENSIVE METABOLIC PANEL Routine 02/03/2025 12:58 PM STAFF AUDITOR Adenocarcinoma of pancreas (CMS/HCC HHS/HCC) CBC W/DIFF AUTOMATED Routine 02/03/2025 12:58 PM STAFF AUDITOR Adenocarcinoma of pancreas (CMS/HCC HHS/HCC) ECG 12-LEAD Routine 01/28/2025 11:40 AM STAFF AUDITOR Chest pain XR CHEST PA+LAT Routine 01/28/2025 11:27 AM STAFF AUDITOR Chest pain IMMUNOASY TUMOR AG CA 19-9 Routine 01/28/2025 11:17 AM STAFF AUDITOR Malignant neoplasm of pancreas, unspecified (CMS/HCC HHS/HCC) TROPONIN, QUANT Routine 01/28/2025 11:17 AM STAFF AUDITOR Chest pain, unspecified COMPREHENSIVE METABOLIC PANEL Routine 01/22/2025 10:36 AM STAFF AUDITOR Adenocarcinoma of pancreas (CMS/HCC HHS/HCC) CBC W/DIFF AUTOMATED Routine 01/22/2025 10:36 AM STAFF AUDITOR Adenocarcinoma of pancreas (CMS/HCC HHS/HCC) COMPREHENSIVE METABOLIC PANEL Routine 01/14/2025 8:35 AM STAFF AUDITOR Adenocarcinoma of pancreas (CMS/HCC HHS/HCC) COMPREHENSIVE METABOLIC PANEL Routine 01/08/2025 7:46 AM STAFF AUDITOR Adenocarcinoma of pancreas (CMS/HCC HHS/HCC) CBC W/DIFF AUTOMATED Routine 01/08/2025 7:46 AM STAFF AUDITOR Adenocarcinoma of pancreas (CMS/HCC HHS/HCC) COMPREHENSIVE METABOLIC PANEL Routine 12/25/2024 9:35 AM STAFF AUDITOR Adenocarcinoma of pancreas (CMS/HCC HHS/HCC) CBC W/DIFF AUTOMATED Routine 12/25/2024 9:35 AM STAFF AUDITOR Adenocarcinoma of pancreas (CMS/HCC HHS/HCC) COMPREHENSIVE METABOLIC PANEL Routine 12/11/2024 1:44 PM STAFF AUDITOR Adenocarcinoma of pancreas (CMS/HCC HHS/HCC) CBC W/DIFF AUTOMATED Routine 12/11/2024 1:44 PM STAFF AUDITOR Adenocarcinoma of pancreas (CMS/HCC HHS/HCC) COMPREHENSIVE METABOLIC PANEL Routine 11/27/2024 11:40 AM STAFF AUDITOR Adenocarcinoma of pancreas (CMS/HCC HHS/HCC) CBC W/DIFF AUTOMATED Routine 11/27/2024 11:40 AM STAFF AUDITOR Adenocarcinoma of pancreas (CMS/HCC HHS/HCC) COLONOSCOPY 05/26/2021 10:08 AM CDT HEMOGLOBIN, GLYCOSYLATED Routine 10/21/2020 1:39 PM STAFF AUDITOR Controlled type 2 diabetes mellitus with diabetic neuropathy, unspecified whether fpc insulin use LIPID PANEL (OUTSIDE LAB) Routine 07/27/2020 from Last 3 Months or Most Recently Relevant to Health Maintenance Results * (ABNORMAL) COMPREHENSIVE METABOLIC PANEL (02/12/2025 1:46 PM CDT) Only the most recent of8 resultswithin the time period is included. SODIUM S/P/B 138 136 - 145 MMOL/L 02/12/2025 2:10 PM CDT [facility] POTASSIUM S/P/B 5.1 3.5 - 5.1 MMOL/L 02/12/2025 2:10 PM CDT [facility] CHLORIDE S/P/B 101 98 - 107 MMOL/L 02/12/2025 2:10 PM CDT [facility] CO2 25.5 21.0 - 32.0 MMOL/L 02/12/2025 2:10 PM CDT [facility] GLUCOSE 222(H) 70 - 99 MG/DL 02/12/2025 2:10 PM CDT [facility] Comment: FASTING GLUCOSE 100 TO 125 MG/DL IS CONSISTENT WITH IMPAIRED FASTING GLUCOSE. FASTING GLUCOSE >125 MG/DL IS CONSISTENT WITH DIABETES. RANDOM GLUCOSE >200 MG/DL WITH HYPERGLYCEMIC SYMPTOMS IS CONSISTENT WITH DIABETES. PER ADA GUIDELINES BUN 12 6 - 24 MG/DL 02/12/2025 2:10 PM CDT [facility] CREATININE S/P/B 1.01 0.70 - 1.30 MG/DL 02/12/2025 2:10 PM CDT [facility] CALCIUM S/P/B 9.3 8.4 - 10.5 MG/DL 02/12/2025 2:10 PM CDT [facility] BILIRUBIN TOTAL S/P/B 0.5 0.2 - 1.0 MG/DL 02/12/2025 2:10 PM CDT [facility] Comment: THIS ASSAY IS NOT RECOMMENDED FOR PATIENTS UNDERGOING TREATMENT WITH ELTROMBOPAG DUE TO THE POTENTIAL FOR FALSELY ELEVATED RESULTS. ALKALINE PHOSPHATASE S/P/B 101 45 - 115 U/L 02/12/2025 2:10 PM CDT [facility] AST 23 15 - 37 U/L 02/12/2025 2:10 PM CDT [facility] ALT 27 16 - 63 U/L 02/12/2025 2:10 PM CDT [facility] TOTAL PROTEIN S/P/B 6.9 6.4 - 8.2 G/DL 02/12/2025 2:10 PM CDT [facility] ALBUMIN S/P/B 3.5 3.4 - 5.0 G/DL 02/12/2025 2:10 PM CDT [facility] ANION GAP 11.5 5.0 - 15.0 MMOL/L 02/12/2025 2:10 PM CDT [facility] OSMOLALITY (CALC) 293 MOSM/KG 025 2:10 PM CDT [facility] Comment:REFERENCE RANGE NOT ESTABLISHED GFR ESTIMATE 83(L) >89 ML/MIN/1. 73 M2 02/12/2025 2:10 PM CDT [facility] GFR NOTES GFR REFERENCE S: 02/12/2025 2:10 PM CDT [facility] Comment: THE ESTIMATED GFR IS [...] <15 ml/min/1.73 m2 02/12/2025 1:46 PM CDT us Noor Khalid MD LABORATORY Final Result [facility] [address] [place] [address], * (ABNORMAL) CBC W/DIFF AUTOMATED (02/12/2025 1:46 PM CDT) Only the most recent of7 resultswithin the time period is included. WBC 4.76 4.00 - 10.80 x10'3/uL 02/12/2025 2:02 PM CDT [facility] RBC 4.66 4.50 - 6.10 x10'6/uL 02/12/2025 2:02 PM CDT [facility] HGB 14.8 13.0 - 18.0 G/DL 02/12/2025 2:02 PM CDT [facility] HCT 44.5 37.0 - 52.0 % 02/12/2025 2:02 PM CDT [facility] MCV 95.5 78.0 - 100.0 FL 02/12/2025 2:02 PM CDT [facility] MCH 31.8(H) 27.0 - 31.0 PG 02/12/2025 2:02 PM CDT [facility] MCHC 33.3 33.0 - 36.0 G/DL 02/12/2025 2:02 PM CDT [facility] RDW 16.7(H) 11.5 - 14.5 % 02/12/2025 2:02 PM CDT [facility] PLT 164 150 - 350 x10'3/uL 02/12/2025 2:02 PM CDT [facility] MPV 9.1 7.4 - 10.4 FL 02/12/2025 2:02 PM CDT [facility] CBC COMMENT NORMAL REFERENCE RANGE NOT ESTABLISHED FOR THE PROPORTIONAL LEUKOCYTE DIFFERENTIAL. 02/12/2025 2:02 PM CDT [facility] NEUTROPHILS % 30.3 % 02/12/2025 2:02 PM CDT [facility] LYMPHOCYTES % 51.7 % 02/12/2025 2:02 PM CDT [facility] MONOCYTES % 14.7 % 02/12/2025 2:02 PM CDT [facility] EOSINOPHILS % 2.5 % 02/12/2025 2:02 PM CDT [facility] BASOPHILS % 0.8 % 02/12/2025 2:02 PM CDT [facility] IMMATURE GRANS % 0.0 % 02/13/20 2:02 PM CDT [facility] NRBC % 0.0 % 02/12/2025 2:02 PM CDT [facility] ABS. NEUTROPHILS 1.44(L) 1.60 - 8.30 x10'3/uL 02/12/2025 2:02 PM CDT [facility] ABS. LYMPHOCYTES 2.46 0.80 - 4.70 x10'3/uL 02/12/2025 2:02 PM CDT [facility] ABS. MONOCYTES 0.70 0.00 - 1.50 x10'3/uL 02/12/2025 2:02 PM CDT [facility] ABS. EOSINOPHILS 0.12 0.00 - 0.40 x10'3/uL 02/12/2025 2:02 PM CDT [facility] ABS. BASOPHILS 0.04 0.00 - 0.20 x10'3/uL 02/12/2025 2:02 PM CDT [facility] ABS. IMMATURE GRANULOCYTES 0.00 0.00 - 0.03 x10'3/uL 02/12/2025 2:02 PM CDT [facility] ABS. NUCLEATED RBC'S 0.00 0.00 - 0.01 x10'3/uL 02/12/2025 2:02 PM CDT [facility] 02/12/2025 1:46 PM CDT us Albino Marc MD LABORATORY Final Result [facility] [address] [place], [place] [address] [phone] * USE ECHOCARDIOGRAM (02/05/2025 6:37 AM STAFF AUDITOR) Anatomical Region Laterality Modality Cardiac Ultrasound 02/05/2025 6:09 AM STAFF AUDITOR Narrative 02/06/2025 11:10 PM STAFF AUDITOR Echocardiography Report Pat.Name: Vanessa Montenegro Pat.ID: [id number] .Date: 02/05/2025 Refer.MD: Han[facility], [facility] Exam Time: 6:09:00 AM Study Type:OUTREACH Height: 70 in Weight: 250 lb BSA: 2.29 m2 Age: 5 1960,64Y Sex: M Sonogrphr: Sf Pat. Stat.:Outpatient Reason for Study:Chest pain Procedures: Study performed at [employer] and interpreted by [facility]. 2D, M-mode, Doppler, Color Flow ++++++++++++++++++++++++++++++++++++ SUMMARY: ++++++++++++++++++++++++++++++++++++ The left ventricular size is normal. Estimated left ventricular ejection fraction is 55-60%. Left ventricular diastolic function is abnormal (grade 1 - impaired relaxation). The right ventricle size is normal. The right ventricular function is normal. There is trace mitral regurgitation. There is trace tricuspid regurgitation. ++++++++++++++++++++++++++++++++++++ FINDINGS: ++++++++++++++++++++++++++++++++++++ LV: The left ventricular size is normal. The left ventricular systolic function is normal. Estimated left ventricular ejection fraction is 55-60%. Left ventricular diastolic function is abnormal (grade 1 - impaired relaxation). RV: The right ventricle size is normal. The right ventricular function is normal. LA: Left atrial size is normal. RA: The right atrial size is normal. CARLENE: No evidence of pericardial effusion. AO: Aorta is normal. SVn: Inferior vena cava is normal. AV: The aortic valve is trileaflet. There is no aortic stenosis. There is no evidence of aortic regurgitation. MV: The mitral valve is structurally normal. There is trace mitral regurgitation. PV: The pulmonic valve is normal There is trace pulmonic regurgitation TV: The tricuspid valve appears structurally normal. There is trace tricuspid regurgitation. <Electronic Signature> 02/06/2025 11:10 PM Christie Yeboah M.D. Procedure Note Christie Yeboah MD - 02/06/2025 Echocardiography Report Pat.Name: Vanessa Montenegro Pat.ID: [id number] .Date: 02/05/2025 [facility]: 6:09:00 AM Study Type:[facility] Height: 70 in Weight: 250 lb BSA: 2.29 m2 Age: 5 1960,64Y Sex: M Sonogrphr: Pat. Stat.:Outpatient Reason for Study:Chest pain Procedures: Study performed at [employer] and interpreted by [facility]. 2D, M-mode, Doppler, Color Flow ++++++++++++++++++++++++++++++++++++ SUMMARY: ++++++++++++++++++++++++++++++++++++ The left ventricular size is normal. Estimated left ventricular ejection fraction is 55-60%. Left ventricular diastolic function is abnormal (grade 1 - impaired relaxation). The right ventricle size is normal. The right ventricular function is normal. There is trace mitral regurgitation. There is trace tricuspid regurgitation. ++++++++++++++++++++++++++++++++++++ FINDINGS: ++++++++++++++++++++++++++++++++++++ LV: The left ventricular size is normal. The left ventricular systolic function is normal. Estimated left ventricular ejection fraction is 55-60%. Left ventricular diastolic function is abnormal (grade 1 - impaired relaxation). RV: The right ventricle size is normal. The right ventricular function is normal. LA: Left atrial size is normal. RA: The right atrial size is normal. CARLENE: No evidence of pericardial effusion. AO: Aorta is normal. SVn: Inferior vena cava is normal. AV: The aortic valve is trileaflet. There is no aortic stenosis. There is no evidence of aortic regurgitation. MV: The mitral valve is structurally normal. There is trace mitral regurgitation. PV: The pulmonic valve is normal There is trace pulmonic regurgitation TV: The tricuspid valve appears structurally normal. There is trace tricuspid regurgitation. <Electronic Signature> 02/06/2025 11:10 PM Christie Yeboah M.D. us Albino Marc MD ECHO Final Result * ECG 12 lead (01/28/2025 11:40 AM STAFF AUDITOR) 01/28/2025 11:4 0 AM STAFF AUDITOR Narrative [facility] - 01/28/2025 8:18 PM STAFF AUDITOR [address] [place] [address] Test Date: 2025-01-28 Pat Name: VANESSA MONTENEGRO Department: 3 Room: Gender: Male Patient Educator: GRETA : 1960 Requested By: ALBINO MARC Order Number: [id number] Reading MD: Jim Thakkar Measurements Intervals [place] Rate: 93 P: 18 TN: 169 QRS: 100 QRSD: 115 T: 18 QT: 347 QTc: 432 Interpretive Statements SINUS RHYTHM BORDERLINE RIGHT AXIS DEVIATION [QRS AXIS > 90] PATTERN CONSISTENT WITH PULMONARY DISEASE INCOMPLETE RIGHT BUNDLE BRANCH BLOCK [90+ ms QRS DURATION, TERMINAL R IN V1/V2, 40+ ms S IN I/aVL/V4/V5/V6] F AUDITOR Procedure Note Jim Thakkar MD - 01/28/[address] [place] [address] Test Date: 2025-01-28 Pat Name: VANESSA MONTENEGRO Department: 3 Room: Gender: Male Patient Educator: GRETA : 1960 Requested By: ALBINO MARC Order Number: [id number] Reading MD: Jim Thakkar Measurements Intervals Crozier Rate: 93 P: 18 TN: 169 QRS: 100 QRSD: 115 T: 18 QT: 347 QTc: 432 Interpretive Statements SINUS RHYTHM BORDERLINE RIGHT AXIS DEVIATION [QRS AXIS > 90] PATTERN CONSISTENT WITH PULMONARY DISEASE INCOMPLETE RIGHT BUNDLE BRANCH BLOCK [90+ ms QRS DURATION, TERMINAL RIN V1/V2, 40+ ms S IN I/aVL/V4/V5/V6] F AUDITOR us Albino Marc MD ECG ORDERABLES Final Result [facility] * XR CHEST PA+LAT (01/28/2025 11:27 AM STAFF AUDITOR) Anatomical Region Laterality Modality Chest Radiographic Brittni ging 01/28/2025 1:36 PM STAFF AUDITOR Impressions 01/28/2025 1:37 PM STAFF AUDITOR IMPRESSION: No acute cardiopulmonary abnormality. Port tip in the distal superior vena cava. Ordered By: ALBINO MARC Interpreted By: Drake Avila MD, 01/28/2025 1:36 PM Narrative 01/28/2025 1:37 PM STAFF AUDITOR [address] [place] [address] Procedure(s): XR CHEST PA+LAT Date of service: 01/28/2025 11:23 AM Provided clinical information: 64 years, Male, CHEST PAIN Procedure and materials: PA and lateral Comparison studies: November 24, 2022. Findings: Cardiac silhouette is within normal limits. Lungs expanded clear of any consolidations. The tip of the port is present in the distal superior vena cava. Prior rotator cuff repair changes left shoulder. Procedure Note Drake Avila MD - 01/28/2025 [facility] [address] [place] [address] Procedure(s): XR CHEST PA+LAT Date of service: 01/28/2025 11:23 AM Provided clinical information: 64 years, Male, CHEST PAIN Procedure and materials: PA and lateral Comparison studies: November 24, 2022. Findings: Cardiac silhouette is within normal limits. Lungs expanded clear of anyconsolidations. The tip of the port is present in the distal superior vena cava. Priorrotator cuff repair changes left shoulder. IMPRESSION: No acute cardiopulmonary abnormality. Port tip in the distal superior vena cava. Ordered By: ALBINO MARC Interpreted By: Drake Avila MD, 01/28/2025 1:36 PM Albino Marc MD GENERAL IMAGING Final Result * IMMUNOASY TUMOR AG CA 19-9 (01/28/2025 11:17 AM STAFF AUDITOR) CA 19-9 16 <34 U/mL 02/01/2025 2:29 PM STAFF AUDITOR [facility] [place] Comment: This test was performed using the Siemens chemiluminescent method. Values obtained from different assay methods cannot be used inter- changeably. CA 19-9 levels, regardless of value, should not be interpreted as absolute evidence of the presence or absence of disease. Test Performed by [facility], [address] [place] [address] Aaron Mccall M.D., Ph.D., Director of Laboratories , [id number] 01/28/2025 11:1 7 AM STAFF AUDITOR Albino Marc MD LABORATORY Final Result [facility] [address] [place] [address], * TROPONIN, QUANT (01/28/2025 11:17 AM STAFF AUDITOR) Pathologist [facility] TROPONIN I HIGH SENSITIVITY 6 0 - 76 ng/L 01/28/2025 11:42 AM STAFF AUDITOR [facility] 01/28/2025 11:1 7 AM STAFF AUDITOR Albino Marc MD LABORATORY Final Result [facility] [address] [place] [address], * COLONOSCOPY (05/26/2021 10:08 AM CDT) Yobany Stern MD GI PROCEDURE ORDERABLES Final Result * (ABNORMAL) HEMOGLOBIN, GLYCOSYLATED (10/21/2020 1:39 PM STAFF AUDITOR) [facility] HGB A1C 7.5(H) <5.7 % 10/21/2020 1:55 PM STAFF AUDITOR [facility] Comment: 5.7 TO 6.4% INCREASED RISK OF DIABETES > OR = 6.5% CONSISTENT WITH DIABETES PER ADA GUIDELINES ESTIMATED AVG GLUCOSE 169(H) 70 - 140 MG/DL 10/21/2020 1:55 PM STAFF AUDITOR [facility] 10/21/2020 1:39 PM STAFF AUDITOR Franc Casas MD LABORATORY Final Result Performing Organization Address City/[facility]/ZIP Co de Phone Number [facility] [address] [place] [address], * LIPID PANEL (OUTSIDE LAB) (07/27/2020) Pathologist [facility] CHOLESTEROL 122 TRIGLYCERIDES 250 HDL 35 LDL (CALCULATED) 37 VLDL CALCULATION 50 CHOL/HDL RATIO 3.5 07/27/2020 Doc [facility] LAB-OUTSIDE/ABSTRACTED Final Result from Last 3 Months or Most Recently Relevant to Health Maintenance Insurance [employer] Advance Directives * Full Code (Latest Code Status on File) Date Activated Date Inactivated Comments 11/25/2022 5:07 PM 11/27/2022 1:35 PM * Full Code Date Activated Date Inactivated Comments 07/06/2020 2:42 PM 07/13/2020 6:06 PM Care Teams Dye Weigher Relationship Specialty Start Date End Date Jevon Pelletier MD [address] [facility] [place] [address] PCP - General FAMILY PRACTICE 10/16/16 Lavon Schuler MD [address] [place] [address] [phone] Consulting Physician GASTROENTEROLOGY 08/11/20 Ravin Patel MD [address] [place] [address] [phone] Consulting Physician INTERVENTIONAL CARDIOLOGY 09/08/21 Leelee Montana, MATERIALS MANAGEMENT MANAGER-BC [address] [place] [address] NURSE PRACTITIONER 09/08/21
--- OUTSIDE RECORDS SUMMARY | 2025-02-17 13:23 | XMS_ITS | Encounter Summary ---
Author Organization [facility] Address [address] [place] [address] Care Team Providers Care Finisher Wallboard And Plasterboard Name Role Phone Jevon Pelletier MD Primary Care Provider [phone] Nigel Petersen MD Unavailable [phone] Lavon Schuler MD Unavailable [phone] Ravin Patel MD Unavailable [phone] Leelee Montana [facility] Unavailable Encounter Details Date Type Department Care Team (Late st Contact Info) Description 05/09/2019 Abstract SFL CONVERSION [address] [place] [address] , Generic Conversion, Social History Tobacco Use Types Packs/Day Years Used Date Smoking Tobacco: Never Smokeless Tobacco: Never Alcohol Use Standard Drinks/Week Comments No 0 (1 standard drink = 0.6 oz pur e alcohol) Sex and Gender Information Value Date Recorded Sex Assigned at Male 12/25/2024 9:22 AM EMERGENCY ROOM PHYSICIAN ASSISTANT Legal Sex Male 11:59 PM CDT Gender Identity Not on file Sexual Orientation Not on file 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 Not on file Not on file documented as of this encounter Plan of Treatment Not on file documented as of this encounter Visit Diagnoses Not on filedocumented in this encounter Additional Health Concerns Infection Onset Date Last Indicated Resolved Time COVID-19 Rule Out 09/12/2020 09/12/2020 09/13/2020 9:06 PM CDT COVID-19 Confirmed 09/12/2020 09/12/2020 0 12:34 AM EMERGENCY ROOM PHYSICIAN ASSISTANT COVID-19 Rule Out 11/13/2020 11/13/2020 11/14/2020 10:26 PM EMERGENCY ROOM PHYSICIAN ASSISTANT COVID-19 Rule Out 11/24/2022 11/24/2022 11/24/2022 5:19 PM EMERGENCY ROOM PHYSICIAN ASSISTANT COVID-19 Rule Out 11/24/2022 11/24/2022 11/25/2022 11:58 AM EMERGENCY ROOM PHYSICIAN ASSISTANT documented as of this encounter Care Teams Finisher Wallboard And Plasterboard Relationship Specialty Start Date End Date Jevon Pelletier MD [address] [place] [address] PCP - General FAMILY PRACTICE 10/16/16 Nigel Petersen MD [facility] [place] [address] [place] Market Manager CARDIOVASCULAR DISEASE 10/16/16 09/07/21 Lavon Schuler MD [address] [place] [address] [phone] Consulting Physician GASTROENTEROLOGY 08/11/20 Ravin Patel MD [address] [place] [address] 33886 Consulting Physician INTERVENTIONAL CARDIOLOGY 09/08/21 Leelee Montana, [facility] [address] [phone] NURSE PRACTITIONER 09/08/21 documented as of this encounter
[2025-02-17 13:30] VITALS: BP 111/63; PULSE 78; RESP 16; O2SAT 96
--- NOTE | 2025-02-17 13:50 | PC.NURSE ---
Patient tolerated chemo pump removal and 1 L NS infusion well. SEE MAR/patient care notes.
== END 2025-02-17 11:22 | disposition home or self-care (01) ==
PROVIDERS: PCP Family Medicine
DX: E86.0 Dehydration (principal); C25.9 Malignant neoplasm of pancreas, unspecified
CPT/HCPCS: 96360; 96361; 96523; J7030

== ENCOUNTER 2025-03-03 10:37 | Outpatient (CLI) | payer OTHER, SELFPAY ==
[2025-03-03 11:03] VITALS: BP 115/74; PULSE 68; RESP 14
[2025-03-03] MEDS: HEPARIN SODIUM LOCK FLUSH 500 UNITS/5 ML SYRINGE IV PUSH (11:03)
--- NOTE | 2025-03-03 11:04 | PC.NURSE ---
Patient here to get chemo pump removed and port flushed. Patient received chemo up in [facility] and instead of driving up to [place] come here to have it removed. Tolerated well. SEE MAR/patient care notes. Chemo discarded. Chemo pump given back to patient to take it up for the next treatment in two weeks.
[2025-03-03 11:07] VITALS: BMI 37.0
--- OUTSIDE RECORDS SUMMARY | 2025-03-03 12:05 | XMS_ITS | Encounter Summary ---
Author Organization [facility] System Address [address] [place] [address] Care Team Providers Care Christmas Tree Contractor Name Role Phone Jevon Pelletier MD Primary Care Provider [phone] Nigel Petersen MD Unavailable [phone] Lavon Schuler MD Unavailable [phone] Ravin Patel MD Unavailable [phone] Leelee Montana [facility] Unavailable Encounter Details Date Type Department Care Team (Late st Contact Info) Description 11/18/2015 Abstract [facility] [address] [place] [address] Nigel Petersen MD [address] [place] [address] Social History Tobacco Use Types Packs/Day Years Used Date Smoking Tobacco: Never Alcohol Use Standard Drinks/Week Comments No 0 (1 standard drink = 0.6 oz pur e alcohol) Sex and Gender Information Value Date Recorded Sex Assigned at Male 12/25/2024 9:22 AM DREDGE CAPTAIN Legal Sex Male 11:59 PM CDT Gender Identity Not on file Sexual Orientation Not on file 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 Not on file Not on file documented as of this encounter Plan of Treatment Not on file documented as of this encounter Visit Diagnoses Not on filedocumented in this encounter Additional Health Concerns Infection Onset Date Last Indicated Resolved Time COVID-19 Rule Out 09/12/2020 09/12/2020 09/13/2020 9:06 PM CDT COVID-19 Confirmed 09/12/2020 09/12/2020 12:34 AM DREDGE CAPTAIN COVID-19 Rule Out 11/13/2020 11/13/2020 11/14/2020 10:26 PM DREDGE CAPTAIN COVID-19 Rule Out 11/24/2022 11/24/2022 11/24/2022 5:19 PM DREDGE CAPTAIN COVID-19 Rule Out 11/24/2022 11/24/2022 11/25/2022 11:58 AM DREDGE CAPTAIN documented as of this encounter Care Teams Christmas Tree Contractor Relationship Specialty Start Date End Date Jevon Pelletier MD [address] [place] [phone] PCP - General FAMILY PRACTICE 10/16/16 Nigel Petersen MD [facility] [place] [address] [place] [employer] Making Machine Operator CARDIOVASCULAR DISEASE 10/16/16 09/07/21 Lavon Schuler MD [address] [place] [address] [phone] Consulting Physician GASTROENTEROLOGY 08/11/20 Ravin Patel MD [address] [place] [address] [phone] Consulting Physician INTERVENTIONAL CARDIOLOGY 09/08/21 Leelee Montana, [facility]- [address] [place] [address] [phone] NURSE PRACTITIONER 09/08/21 documented as of this encounter
--- OUTSIDE RECORDS SUMMARY | 2025-03-03 12:05 | XMS_ITS | Encounter Summary ---
Author Organization [facility] System Address [address] [place] [address] Care Team Providers Care Figure Model Name Role Phone Jevon Pelletier MD Primary Care Provider [phone] Nigel Petersen MD Unavailable [phone] Lavon Schuler MD Unavailable [phone] Ravin Patel MD Unavailable [phone] Leelee Montana [facility] Unavailable Encounter Details Date Type Department Care Team (Late st Contact Info) Description 05/09/2019 Abstract SFL CONVERSION [address] [place] [address] , Generic Conversion, Social History Tobacco Use Types Packs/Day Years Used Date Smoking Tobacco: Never Smokeless Tobacco: Never Alcohol Use Standard Drinks/Week Comments No 0 (1 standard drink = 0.6 oz pur e alcohol) Sex and Gender Information Value Date Recorded Sex Assigned at Male 12/25/2024 9:22 AM COUNTY LIBRARY DIRECTOR Legal Sex Male 11:59 PM CDT Gender Identity Not on file Sexual Orientation Not on file 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 Not on file Not on file documented as of this encounter Plan of Treatment Not on file documented as of this encounter Visit Diagnoses Not on filedocumented in this encounter Additional Health Concerns Infection Onset Date Last Indicated Resolved Time COVID-19 Rule Out 09/12/2020 09/12/2020 09/13/2020 9:06 PM CDT COVID-19 Confirmed 09/12/2020 09/12/2020 0 12:34 AM COUNTY LIBRARY DIRECTOR COVID-19 Rule Out 11/13/2020 11/13/2020 11/14/2020 10:26 PM COUNTY LIBRARY DIRECTOR COVID-19 Rule Out 11/24/2022 11/24/2022 11/24/2022 5:19 PM COUNTY LIBRARY DIRECTOR COVID-19 Rule Out 11/24/2022 11/24/2022 11/25/2022 11:58 AM COUNTY LIBRARY DIRECTOR documented as of this encounter Care Teams Figure Model Relationship Specialty Start Date End Date Jevon Pelletier MD [address] [place] [address] PCP - General FAMILY PRACTICE 10/16/16 Nigel Petersen MD [facility] [place] [address] [place] Polisher Implant CARDIOVASCULAR DISEASE 10/16/16 09/07/21 Lavon Schuler MD [address] [place] [address] [phone] Consulting Physician GASTROENTEROLOGY 08/11/20 Ravin Patel MD [address] [place] [phone] Consulting Physician INTERVENTIONAL CARDIOLOGY 09/08/21 Leelee Montana, [facility] [address] [address] NURSE PRACTITIONER 09/08/21 documented as of this encounter
--- OUTSIDE RECORDS SUMMARY | 2025-03-03 12:05 | XMS_ITS | Encounter Summary ---
Author Organization [facility] System Address [address] [place] [address] Care Team Providers Care Er Manager Name Role Phone Jevon Pelletier MD Primary Care Provider [phone] Lavon Schuler MD Unavailable Ravin Patel MD Unavailable [phone] Leelee Montana [facility] Unavailable Encounter Details Date Type Department Care Team (Late st Contact Info) Description 02/28/2024 [employer] [facility] Message Enc [facility] BUSINESS OFFICE [facility] Provider Action Required Social History Tobacco Use Types Packs/Day Years Used Date Smoking Tobacco: Never Smokeless Tobacco: Never Alcohol Use Standard Drinks/Week Comments No 0 (1 standard drink = 0.6 oz pur e alcohol) Sex and Gender Information Value Date Recorded Sex Assigned at Male 12/25/2024 9:22 AM NURSE INFECTION CONTROL Legal Sex Male 11:59 PM CDT Gender Identity Not on file Sexual Orientation Not on file 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 Answer Date of Assessment Author Status No 11/24/2022 9:28 PM NURSE INFECTION CONTROL Activ e * Do you have serious [...] on filedocumented in this encounter Care Teams Er Manager Relationship Specialty [place] [address] [place] [address] [place] [address] PCP - General FAMILY PRACTICE 10/16/16 Lavon Schuler MD [address] [place] [phone] Consulting Physician GASTROENTEROLOGY 08/11/20 Ravin Patel MD [address] [place] [address] Consulting Physician INTERVENTIONAL CARDIOLOGY 09/08/21 Leelee Montana, [facility] [address] [address] NURSE PRACTITIONER 09/08/21 documented as of this encounter
--- OUTSIDE RECORDS SUMMARY | 2025-03-03 12:05 | XMS_ITS | Clinical Summary ---
Author Organization [facility] Address [address] [place] [address] Care Team Providers Care Cable Splicer Assistant Name Role Phone Jevon Pelletier MD Primary Care Provider [phone] Lavon Schuler MD Unavailable [phone] Ravin Patel MD Unavailable [phone] Leelee Montana [facility] Unavailable Allergies Active Allergy Reactions Criticality Noted [...] initial encounter 09/2020 Acute on chronic pancreatitis ([facility]) 07/06/2020 Hemoglobin A1c 8.0% or greater 07/06/2020 Osteoarthritis of left knee 12/27/2016 Essential (primary) hypertension 11/09/2016 Class 3 severe obesity due t o excess calories with serious comorbidity in adult 11/09/2016 ALEJO (obstructive sleep apnea) 11/09/2016 Umbilical hernia 06/05/2016 Controlled type 2 diabetes m ellitus with diabetic neuropathy ([facility]) Diabetic neuropathy ([facility]) Hypertension Coronary artery disease Overview (07/06/2020): non-obstructive Resolved Problems Problem Noted Date Diagnosed Date Resolved Date Hypomagnesemia 07/06/2020 07/13/2020 Other chest pain 01/31/2018 02/16/2022 Hyperlipidemia, mixed 11/09/20162019 Morbid obesity 02/16/2022 Sleep apnea with use of cont inuous positive airway pressure (CPAP) 02/16/2022 Overview (07/06/2020): has not been using secondary to waiting for a chin strap Encounters Date Type Department Care Team Description 02/26/2025 11:15 AM CDT - 02/26/2025 11:59 PM CDT Hospital Encounter [facility] [address] [place] [address] Albino Marc MD Discharge Disposition: Home or Self Care (Routine Discharge) 02/26/2025 Orders Only [facility] [address] [place] [address] Albino Marc MD 02/26/2025 Travel 02/18/2025 8:40 AM CDT - 02/18/2025 11:59 PM CDT Hospital Encounter [facility] [address] [place] [address] Gordon Marc MD Khalid, Noor, MD Discharge Disposition: Home or Self Care (Routine Discharge) 02/18/2025 Orders Only [facility] [address] [place] [address] Albino Marc MD 02/18/2025 Travel 02/17/2025 Orders Only [facility] [address] [place] [address] Albino Marc MD 02/12/2025 1:35 PM CDT - 02/12/2025 11:59 PM CDT Hospital Encounter [facility] [place] [address] [place] [address] Jevon Pelletier MD Khalid, Noor, MD Discharge Disposition: Home or Self Care (Routine Discharge) 02/12/2025 Orders Only [facility] [place] [address] Albino Marc MD 02/12/2025 Travel 02/10/2025 Orders Only [facility] [address] [place] [address] Albino Marc MD 02/05/2025 6:00 AM DIRECTOR FEDERAL - 02/05/2025 11:59 PM DIRECTOR FEDERAL Hospital Encounter [facility] [address] [place] [address] Albino Marc MD Discharge Disposition: Home or Self Care (Routine Discharge) 02/05/2025 Travel 02/03/2025 12:50 PM DIRECTOR FEDERAL - 02/03/2025 11:59 PM DIRECTOR FEDERAL Hospital Encounter [facility] [place] [address] Albino Marc MD Discharge Disposition: Home or Self Care (Routine Discharge) 02/03/2025 Orders Only [facility] [address] [place] [address] Albino Marc MD 02/03/2025 Travel 01/28/2025 11:10 AM DIRECTOR FEDERAL - 01/28/2025 11:59 PM DIRECTOR FEDERAL Hospital Encounter [facility] [address] [place] [address] Albino Marc MD Discharge Disposition: Home or Self Care (Routine Discharge) 01/28/2025 11:09 AM DIRECTOR FEDERAL Hospital Encounter [facility] [address] [place] [address] Albino Marc MD Discharge Disposition: Home or Self Care (Routine Discharge) 01/28/2025 11:07 AM DIRECTOR FEDERAL - 01/28/2025 11:08 AM DIRECTOR FEDERAL Hospital Encounter [facility] [place] [address] Albino Marc MD Discharge Disposition: Home or Self Care (Routine Discharge) 01/28/2025 Orders Only [facility] [place] [address] Albino Marc MD 01/28/2025 Travel 01/25/2025 Orders Only [facility] [address] [place] [address] Albino Marc MD 01/22/2025 10:25 AM DIRECTOR FEDERAL - 01/22/2025 11:59 PM DIRECTOR FEDERAL Hospital Encounter [facility] [place] [address] Jevon Pelletier MD Khalid, Noor, MD Discharge Disposition: Home or Self Care (Routine Discharge) 01/22/2025 Orders Only [facility] [place] [address] Albino Marc MD 01/22/2025 Travel 01/14/2025 8:27 AM DIRECTOR FEDERAL - 01/14/2025 11:59 PM DIRECTOR FEDERAL Hospital Encounter [facility] [place] [address] Albino Marc MD Discharge Disposition: Home or Self Care (Routine Discharge) 01/14/2025 Orders Only [facility] [address] [place] [address] Albino Marc MD 01/14/2025 Travel 01/08/2025 7:33 AM DIRECTOR FEDERAL - 01/08/2025 11:59 PM DIRECTOR FEDERAL Hospital Encounter [facility] [address] [place] [address] Albino Marc MD Discharge Disposition: Home or Self Care (Routine Discharge) 01/08/2025 Orders Only [facility] [address] [place] [address] Albino Marc MD 01/08/2025 Travel 12/25/2024 9:23 AM DIRECTOR FEDERAL - 12/25/2024 11:59 PM DIRECTOR FEDERAL Hospital Encounter [facility] [address] [place] [address] Albino Marc MD Discharge Disposition: Home or Self Care (Routine Discharge) 12/25/2024 Orders Only [facility] [address] [place] [address] Albino Marc MD 12/25/2024 Travel 12/11/2024 1:25 PM DIRECTOR FEDERAL - 12/11/2024 11:59 PM DIRECTOR FEDERAL Hospital Encounter [facility] [address] [place] [address] Albino Marc MD Discharge Disposition: Home or Self Care (Routine Discharge) 12/11/2024 Orders Only [facility] [address] [place] [address] Albino Marc MD 12/11/2024 Travel from Last 3 Months Family History [...] Sex Assigned at Male 12/25/2024 9:22 AM DIRECTOR FEDERAL Legal Sex Male 11:59 PM CDT Gender Identity Not on file Sexual Orientation Not on file 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 Not on file Not on file Not on file Last Filed Vital Signs Vital Sign Reading Time Taken Comments Blood Pressure 110/74 11/27/2022 8:42 AM DIRECTOR FEDERAL Pulse 79 11/27/2022 8:42 AM DIRECTOR FEDERAL Temperature 35.9 C (96.6 F) 11/27/2022 6:05 AM DIRECTOR FEDERAL Respiratory Rate 20 11/27/2022 6:05 AM DIRECTOR FEDERAL Oxygen Saturation 94% 11/27/2022 6:05 AM DIRECTOR FEDERAL Inhaled Oxygen Concentration - - Weight 131.6 kg (290 lb 3.2 oz) 11/24/2022 9:37 PM DIRECTOR FEDERAL Height 177.8 cm (5' 10 ) 11/24/2022 9:37 PM DIRECTOR FEDERAL Body Mass Index 41.64 11/24/2022 9:37 PM DIRECTOR FEDERAL Plan of Treatment Health Maintenance Due Date [...] 1-dose series) 2020 Hemoglobin A1C 04/20/2021 10/21/2020, 04/2020, 05/22/2016 ASCVD LDL 07/27/2021 07/27/2020, 07/02, 07/07/2020, Additional history exists Lipid Panel 07/27/2021 07/27/2020, 07/02, 07/07/2020, Additional history exists COVID-19 Vaccine ( season) 2024 05/12/2021, 04/14/2021 Colorectal Cancer Screening Colonoscopy (10 Years) 05/26/2031 [...] upon discharge from hospital Lifestyle No Mariely Cottrell, [employer] Medical Devices Implanted Type Area Warp Preparer Device Identifier Shelf Expiration Date Model / Serial / Lot Kit Arthrex Bioanchor Speedbridge 5.5 Swivelock - [id number] Implanted:Qty: 1 on 11/16/2020 by Franc Casas MD at [facility] Levasy Left: Shoulder [employer] [id number] 08/01/2024 AR-[id number] S-5 / / [id number] Kit Arthrex Bioanchor Speedbridge 5.5 Swivelock - [id number] Implanted:Qty: 1 on 11/16/2020 by Franc Casas MD at [facility] Levasy Left: Shoulder [employer] [id number] 08/01/2024 AR-2600SB S-5 / / [id number] Implant System, Proximal Tenodesis Implanted:Qty: 1 on 11/16/2020 by Franc Casas MD at [facility] Left: Shoulder 03/31/2025 [id number] / / [id number] Procedures Procedure Name Priority Date/Time Associated Diagnosis Comments CBC W/DIFF AUTOMATED Routine 02/26/2025 11:22 AM CDT Adenocarcinoma of pancreas (CMS/HCC HHS/HCC) COMPREHENSIVE METABOLIC PANEL Routine 02/26/2025 11:22 AM CDT Adenocarcinoma of pancreas (CMS/HCC HHS/HCC) BASIC METABOLIC PANEL Routine 02/18/2025 9:11 AM CDT Adenocarcinoma of pancreas (CMS/HCC HHS/HCC) CBC W/DIFF AUTOMATED Routine 02/12/2025 1:46 PM CDT Adenocarcinoma of pancreas (CMS/HCC HHS/HCC) COMPREHENSIVE METABOLIC PANEL Routine 02/12/2025 1:46 PM CDT Adenocarcinoma of pancreas (CMS/HCC HHS/HCC) USE ECHOCARDIOGRAM Routine 02/05/2025 6: 37 AM DIRECTOR FEDERAL Chest pain COMPREHENSIVE METABOLIC PANEL Routine 02/03/2025 12:58 PM DIRECTOR FEDERAL Adenocarcinoma of pancreas (CMS/HCC HHS/HCC) CBC W/DIFF AUTOMATED Routine 02/03/2025 12:58 PM DIRECTOR FEDERAL Adenocarcinoma of pancreas (CMS/HCC HHS/HCC) ECG 12-LEAD Routine 01/28/2025 11:40 AM DIRECTOR FEDERAL Chest pain XR CHEST PA+LAT Routine 01/28/2025 11:27 AM DIRECTOR FEDERAL Chest pain IMMUNOASY TUMOR AG CA 19-9 Routine 01/28/2025 11:17 AM DIRECTOR FEDERAL Malignant neoplasm of pancreas, unspecified (CMS/HCC HHS/HCC) TROPONIN, QUANT Routine 01/28/2025 11:17 AM DIRECTOR FEDERAL Chest pain, unspecified COMPREHENSIVE METABOLIC PANEL Routine 01/22/2025 10:36 AM DIRECTOR FEDERAL Adenocarcinoma of pancreas (CMS/HCC HHS/HCC) CBC W/DIFF AUTOMATED Routine 01/22/2025 10:36 AM DIRECTOR FEDERAL Adenocarcinoma of pancreas (CMS/HCC HHS/HCC) COMPREHENSIVE METABOLIC PANEL Routine 01/14/2025 8:35 AM DIRECTOR FEDERAL Adenocarcinoma of pancreas (CMS/HCC HHS/HCC) COMPREHENSIVE METABOLIC PANEL Routine 01/08/2025 7:46 AM DIRECTOR FEDERAL Adenocarcinoma of pancreas (CMS/HCC HHS/HCC) CBC W/DIFF AUTOMATED Routine 01/08/2025 7:46 AM DIRECTOR FEDERAL Adenocarcinoma of pancreas (CMS/HCC HHS/HCC) COMPREHENSIVE METABOLIC PANEL Routine 12/25/2024 9:35 AM DIRECTOR FEDERAL Adenocarcinoma of pancreas (CMS/HCC HHS/HCC) CBC W/DIFF AUTOMATED Routine 12/25/2024 9:35 AM DIRECTOR FEDERAL Adenocarcinoma of pancreas (CMS/HCC HHS/HCC) COMPREHENSIVE METABOLIC PANEL Routine 12/11/2024 1:44 PM DIRECTOR FEDERAL Adenocarcinoma of pancreas (CMS/HCC HHS/HCC) CBC W/DIFF AUTOMATED Routine 12/11/2024 1:44 PM DIRECTOR FEDERAL Adenocarcinoma of pancreas (CMS/HCC HHS/HCC) COLONOSCOPY 05/26/2021 10:08 AM CDT HEMOGLOBIN, GLYCOSYLATED Routine 10/21/2020 1:39 PM DIRECTOR FEDERAL Controlled type 2 diabetes mellitus with diabetic neuropathy, 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 SODIUM S/P/B 142 136 - 145 MMOL/L 02/26/2025 11:47 AM CDT [facility] POTASSIUM S/P/B 4.5 3.5 - 5.1 MMOL/L 02/26/2025 11:47 AM CDT [facility] Comment:SLIGHT HEMOLYSIS, RE SULT MAY BE AFFECTED. CHLORIDE S/P/B 106 98 - 107 MMOL/L 02/26/2025 11:47 AM CDT [facility] CO2 26.1 21.0 - 32.0 MMOL/L 02/26/2025 11:47 AM CDT [facility] GLUCOSE 182(H) 70 - 99 MG/DL 02/26/2025 11:47 AM T [facility] Comment: MILD LIPEMIA. RESULT MAY BE AFFECTED. FASTING GLUCOSE 100 TO 125 MG/DL IS CONSISTENT WITH IMPAIRED FASTING GLUCOSE. FASTING GLUCOSE >125 MG/DL IS CONSISTENT WITH DIABETES. RANDOM GLUCOSE >200 MG/DL WITH HYPERGLYCEMIC SYMPTOMS IS CONSISTENT WITH DIABETES. PER ADA GUIDELINES BUN 10 6 - 24 MG/DL 02/26/2025 11:47 AM T [facility] CREATININE S/P/B 0.91 0.70 - 1.30 MG/DL 02/26/2025 11:47 AM CDT [facility] CALCIUM S/P/B 8.5 8.4 - 10.5 MG/DL 02/26/2025 11:47 AM T [facility] BILIRUBIN TOTAL S/P/B 0.4 0.2 - 1.0 MG/DL 02/26/2025 11:47 AM T [facility] Comment: THIS ASSAY IS NOT RECOMMENDED FOR PATIENTS UNDERGOING TREATMENT WITH ELTROMBOPAG DUE TO THE POTENTIAL FOR FALSELY ELEVATED RESULTS. ALKALINE PHOSPHATASE S/P/B 92 45 - 115 U/L 02/26/2025 11:47 AM T [facility] AST 23 15 - 37 U/L 02/26/2025 11:47 AM [facility] ALT 31 16 - 63 U/L 02/26/2025 11:47 AM T [facility] TOTAL PROTEIN S/P/B 6.6 6.4 - 8.2 G/DL 02/26/2025 11:47 AM T [facility] ALBUMIN S/P/B 3.5 3.4 - 5.0 G/DL 02/26/2025 11:47 AM T [facility] ANION GAP 9.9 5.0 - 15.0 MMOL/L 02/26/2025 11:47 AM T [facility] OSMOLALITY (CALC) 298 MOSM/KG 025 11:47 AM T [facility] Comment:REFERENCE RANGE NOT ESTABLISHED GFR ESTIMATE >90 >89 ML/MIN/1. 73 M2 02/26/2025 11:47 AM CDT [facility] GFR NOTES GFR REFERENCE S: 02/26/2025 11:47 AM CDT [facility] Comment: THE ESTIMATED GFR IS [...] ml/min/1.73 m2 G5,KIDNEY FAILURE: <15 ml/min/1.73 m2 02/26/2025 11:2 2 AM CDT Albino Marc MD LABORATORY Final Result [facility] [place] [id number], * (ABNORMAL) CBC W/DIFF AUTOMATED (02/26/2025 11:22 AM CDT) Only the most recent of7 resultswithin the time period is included. WBC 5.07 4.00 - 10.80 x10'3/uL 02/26/2025 11:28 AM CDT [facility] RBC 4.57 4.50 - 6.10 x10'6/uL 02/26/2025 11:28 AM CDT [facility] HGB 14.9 13.0 - 18.0 G/DL 02/26/2025 11:28 AM CDT [facility] HCT 43.4 37.0 - 52.0 % 02/26/2025 11:28 AM CDT [facility] MCV 95.0 78.0 - 100.0 FL 02/26/2025 11:28 AM CDT [facility] MCH 32.6(H) 27.0 - 31.0 PG 02/26/2025 11:28 AM CDT [facility] MCHC 34.3 33.0 - 36.0 G/DL 02/26/2025 11:28 AM CDT [facility] RDW 14.7(H) 11.5 - 14.5 % 02/26/2025 11:28 AM CDT [facility] PLT 156 150 - 350 x10'3/uL 02/26/2025 11:28 AM CDT [facility] MPV 8.8 7.4 - 10.4 FL 02/26/2025 11:28 AM CDT [facility] CBC COMMENT NORMAL REFERENCE RANGE NOT ESTABLISHED FOR THE PROPORTIONAL LEUKOCYTE DIFFERENTIAL. 02/26/2025 11:28 AM CDT [facility] NEUTROPHILS % 41.3 % 02/26/2025 11:28 AM CDT [facility] LYMPHOCYTES % 45.6 % 02/26/2025 11:28 AM CDT [facility] MONOCYTES % 9.9 % 02/26/2025 11:28 AM CDT [facility] EOSINOPHILS % 2.4 % 02/26/2025 11:28 AM CDT [facility] BASOPHILS % 0.6 % 02/26/2025 11:28 AM CDT [facility] IMMATURE GRANS % 0.2 % 02/27/20 11:28 AM CDT [facility] NRBC % 0.0 % 02/26/2025 11:28 AM CDT [facility] ABS. NEUTROPHILS 2.10 1.60 - 8.30 x10'3/uL 02/26/2025 11:28 AM CDT [facility] ABS. LYMPHOCYTES 2.31 0.80 - 4.70 x10'3/uL 02/26/2025 11:28 AM CDT [facility] ABS. MONOCYTES 0.50 0.00 - 1.50 x10'3/uL 02/26/2025 11:28 AM CDT [facility] ABS. EOSINOPHILS 0.12 0.00 - 0.40 x10'3/uL 02/26/2025 11:28 AM CDT [facility] ABS. BASOPHILS 0.03 0.00 - 0.20 x10'3/uL 02/26/2025 11:28 AM CDT [facility] ABS. IMMATURE GRANULOCYTES 0.01 0.00 - 0.03 x10'3/uL 02/26/2025 11:28 AM CDT [facility] ABS. NUCLEATED RBC'S 0.00 0.00 - 0.01 x10'3/uL 02/26/2025 11:28 AM CDT [facility] 02/26/2025 11:2 2 AM CDT Albino Marc MD LABORATORY Final Result [facility] [address] [place] [address], * (ABNORMAL) BASIC METABOLIC PANEL (02/18/2025 9:11 AM CDT) SODIUM S/P/B 137 136 - 145 MMOL/L 02/18/2025 9:27 AM CDT [facility] POTASSIUM S/P/B 4.3 3.5 - 5.1 MMOL/L 02/18/2025 9:27 AM CDT [facility] CHLORIDE S/P/B 102 98 - 107 MMOL/L 02/18/2025 9:27 AM CDT [facility] CO2 25.7 21.0 - 32.0 MMOL/L 02/18/2025 9:27 AM CDT [facility] GLUCOSE 129(H) 70 - 99 MG/DL 02/18/2025 9:27 AM CDT [facility] Comment: FASTING GLUCOSE 100 TO 125 MG/DL IS CONSISTENT WITH IMPAIRED FASTING GLUCOSE. FASTING GLUCOSE >125 MG/DL IS CONSISTENT WITH DIABETES. RANDOM GLUCOSE >200 MG/DL WITH HYPERGLYCEMIC SYMPTOMS IS CONSISTENT WITH DIABETES. PER ADA GUIDELINES BUN 21 6 - 24 MG/DL 02/18/2025 9:27 AM CDT [facility] CREATININE S/P/B 1.04 0.70 - 1.30 MG/DL 02/18/2025 9:27 AM CDT [facility] CALCIUM S/P/B 8.6 8.4 - 10.5 MG/DL 02/18/2025 9:27 AM CDT [facility] ANION GAP 9.3 5.0 - 15.0 MMOL/L 02/18/2025 9:27 AM CDT [facility] OSMOLALITY (CALC) 289 MOSM/KG 025 9:27 AM T [facility] Comment:REFERENCE RANGE NOT ESTABLISHED GFR ESTIMATE 80(L) >89 ML/MIN/1. 73 M2 02/18/2025 9:27 AM CDT [facility] GFR NOTES GFR REFERENCE S: 02/18/2025 9:27 AM T [facility] Comment: THE ESTIMATED GFR IS [...] ml/min/1.73 m2 G5,KIDNEY FAILURE: <15 ml/min/1.73 m2 02/18/2025 9:11 AM CDT Albino Marc MD LABORATORY Final Result [facility] [address] [place] [address], * USE ECHOCARDIOGRAM (02/05/2025 6:37 AM DIRECTOR FEDERAL) Anatomical Region Laterality Modality Cardiac Ultrasound 02/05/2025 6:09 AM DIRECTOR FEDERAL Narrative 02/06/2025 11:10 PM DIRECTOR FEDERAL Echocardiography Report Pat.Name: Vanessa Montenegro.ID: [id number] .Date: 02/05/2025 [facility]: [facility]:09:00 AM Study Type:EBENEZER Height: 70 in Weight: 250 lb BSA: 2.29 m2 Age: 5 1960,64Y Sex: M Sonogrphr: Jeronimo Pat. Stat.:Outpatient Reason for Study:Chest pain Procedures: Study performed at [place], [place] and interpreted by [facility]. 2D, M-mode, Doppler, Color Flow [...] MD - 02/06/2025 Echocardiography Report Pat.Name: Vanessa Montenegro.ID: [id number] .Date: 02/05/2025 Refer.MD: Ebenezer, [facility] Exam Time: 6:09:00 AM Study Type:OUTREACH Height: 70 in Weight: 250 lb BSA: 2.29 m2 Age: 5 1960,64Y Sex: M Sonogrphr: Pat. Stat.:Outpatient Reason for Study:Chest pain Procedures: Study performed at [place], [place] and interpreted by [facility]. 2D, M-mode, Doppler, Color Flow [...] * ECG 12 lead (01/28/2025 11:40 AM DIRECTOR FEDERAL) 01/28/2025 11:4 0 AM DIRECTOR FEDERAL Narrative [facility] - 01/28/2025 8:18 PM DIRECTOR FEDERAL [address] [place] [address] Test Date: 2025-01-28 Pat Name: VANESSA MONTENEGRO Department: 3 Room: Gender: Male Analytics Director: GRETA HERNANDEZB: 1960 Requested By: ALBINO MARC Order Number: [id number] Reading MD: Jim Thakkar Measurements Intervals [place] Rate: 93 P: 18 ID: 169 QRS: 100 QRSD: 115 T: 18 QT: 347 QTc: 432 Interpretive Statements SINUS RHYTHM BORDERLINE RIGHT AXIS DEVIATION [QRS AXIS > 90] PATTERN CONSISTENT WITH PULMONARY DISEASE INCOMPLETE RIGHT BUNDLE BRANCH BLOCK [90+ ms QRS DURATION, TERMINAL R IN V1/V2, 40+ ms S IN I/aVL/V4/V5/V6] CTOR FEDERAL Procedure Note Jim Thakkar MD - 01/28/[address] [place] [address] Test Date: 2025-01-28 Pat Name: VANESSA MONTENEGRO Department: 3 Room: Gender: Male Analytics Director: GRETA HERNANDEZB: 1960 Requested By: ALBINO MARC Order Number: [id number] Reading MD: Jim Thakkar Measurements Intervals [place] Rate: 93 P: 18 ID: 169 QRS: 100 QRSD: 115 T: 18 QT: 347 QTc: 432 Interpretive Statements SINUS RHYTHM BORDERLINE RIGHT AXIS DEVIATION [QRS AXIS > 90] PATTERN CONSISTENT WITH PULMONARY DISEASE INCOMPLETE RIGHT BUNDLE BRANCH BLOCK [90+ ms QRS DURATION, TERMINAL RIN V1/V2, 40+ ms S IN I/aVL/V4/V5/V6] CTOR FEDERAL Albino Marc MD ECG ORDERABLES Final Result [facility] * XR CHEST PA+LAT (01/28/2025 11:27 AM DIRECTOR FEDERAL) Anatomical Region Laterality Modality Chest Radiographic Brittni ging 01/28/2025 1:36 PM DIRECTOR FEDERAL Impressions 01/28/2025 1:37 PM DIRECTOR FEDERAL IMPRESSION: No acute cardiopulmonary abnormality. Port tip in the distal superior vena cava. Ordered By: ALBINO MARC Interpreted By: Drake Avila MD, 01/28/2025 1:36 PM Narrative 01/28/2025 1:37 PM DIRECTOR FEDERAL [address] [place] [address] Procedure(s): XR CHEST PA+LAT Date of service: [...] Procedure Note Drake Avila MD - 01/28/[address] [place] [address] Procedure(s): XR CHEST PA+LAT Date of service: [...] TUMOR AG CA 19-9 (01/28/2025 11:17 AM DIRECTOR FEDERAL) CA 19-9 16 <34 U/mL 02/01/2025 2:29 PM DIRECTOR FEDERAL [employer] [facility] Comment: This test was performed using the Siemens chemiluminescent method. Values obtained from different assay methods cannot be used inter- changeably. CA 19-9 levels, regardless of value, should not be interpreted as absolute evidence of the presence or absence of disease. Test Performed by [email or web address], [employer] [facility], [address] [place] [address] Aaron Mccall M.D., Ph.D., Director of Laboratories , [facility] [id number] 01/28/2025 11:1 7 AM DIRECTOR FEDERAL Albino Marc MD LABORATORY Final Result [employer] [facility] [address] [place] [phone], [place] [phone] * TROPONIN, QUANT (01/28/2025 11:17 AM DIRECTOR FEDERAL) Pathologist [facility] TROPONIN I HIGH SENSITIVITY 6 0 - 76 ng/L 01/28/2025 11:42 AM DIRECTOR FEDERAL [facility] 01/28/2025 11:1 7 AM DIRECTOR FEDERAL Albino Marc MD LABORATORY Final Result [facility] [place] [address], * COLONOSCOPY (05/26/2021 10:08 AM CDT) Yobany Stern MD GI PROCEDURE ORDERABLES Final Result * (ABNORMAL) HEMOGLOBIN, GLYCOSYLATED (10/21/2020 1:39 PM DIRECTOR FEDERAL) HGB A1C 7.5(H) <5.7 % 10/21/2020 1:55 PM DIRECTOR FEDERAL [facility] Comment: 5.7 TO 6.4% INCREASED RISK OF DIABETES > OR = 6.5% CONSISTENT WITH DIABETES PER ADA GUIDELINES ESTIMATED AVG GLUCOSE 169(H) 70 - 140 MG/DL 10/21/2020 1:55 PM DIRECTOR FEDERAL [facility] 10/21/2020 1:39 PM DIRECTOR FEDERAL Franc Casas MD LABORATORY Final Result Performing Organization Address [facility] Co de Phone Number [facility] [address] [place] [phone], * LIPID PANEL (OUTSIDE LAB) (07/27/2020) CHOLESTEROL [...] 2:42 PM 07/13/2020 6:06 PM Care Teams Cable Splicer Assistant Relationship Specialty Start Date End Date Jevon Pelletier MD [address] [place] [phone] PCP - General FAMILY PRACTICE 10/16/16 Lavon Schuler MD [address] [place] [phone] Consulting Physician GASTROENTEROLOGY 08/11/20 Ravin Patel MD [address] [place] [phone] Consulting Physician INTERVENTIONAL CARDIOLOGY 09/08/21 Leelee Montana, LEADITE WORKER- [address] [place] [phone] NURSE PRACTITIONER 09/08/21
--- OUTSIDE RECORDS SUMMARY | 2025-03-03 12:05 | XMS_ITS | Encounter Summary ---
Author Organization [facility] Address [address] [place] [address] Care Team Providers Care Renewals Manager Name Role Phone Jevon Pelletier MD Primary Care Provider [phone] Lavon Schuler MD Unavailable [phone] Ravin Patel MD Unavailable [phone] Leelee Montana [facility] Unavailable Encounter Details Date Type Department Care Team (Late st Contact Info) Description 02/26/2025 Orders Only [facility] [address] [facility] [address] Hever Marc MD [address] [place] [id number] Social History Tobacco Use Types Packs/Day Years Used Date Smoking Tobacco: Never Smokeless Tobacco: Never Alcohol Use Standard Drinks/Week Comments No 0 (1 standard drink = 0.6 oz pur e alcohol) Sex and Gender Information Value Date Recorded Sex Assigned at Male 12/25/2024 9:22 AM 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 Answer Date of Assessment Author Status No 11/24/2022 9:28 PM PROFESSOR OF RELIGIOUS STUDIES Activ e * Do you have serious [...] encounter Results * (ABNORMAL) CBC W/DIFF AUTOMATED (02/26/2025 11:22 AM CDT) [facility] WBC 5.07 4.00 - 10.80 x10'3/uL 02/26/2025 11:28 AM CDT [facility] RBC 4.57 4.50 - 6.10 x10'6/uL 02/26/2025 11:28 AM CDT [facility] HGB 14.9 13.0 - 18.0 G/DL 02/26/2025 11:28 AM CDT [facility] HCT 43.4 37.0 - 52.0 % 02/26/2025 11:28 AM CDT [facility] MCV 95.0 78.0 - 100.0 FL 02/26/2025 11:28 AM CDT [facility] MCH 32.6(H) 27.0 - 31.0 PG 02/26/2025 11:28 AM CDT [facility] MCHC 34.3 33.0 - 36.0 G/DL 02/26/2025 11:28 AM CDT [facility] RDW 14.7(H) 11.5 - 14.5 % 02/26/2025 11:28 AM CDT [facility] PLT 156 150 - 350 x10'3/uL 02/26/2025 11:28 AM CDT [facility] MPV 8.8 7.4 - 10.4 FL 02/26/2025 11:28 AM CDT [facility] CBC COMMENT NORMAL REFERENCE RANGE NOT ESTABLISHED FOR THE PROPORTIONAL LEUKOCYTE DIFFERENTIAL. 02/26/2025 11:28 AM CDT [facility] NEUTROPHILS % 41.3 % 02/26/2025 11:28 AM CDT [facility] LYMPHOCYTES % 45.6 % 02/26/2025 11:28 AM CDT [facility] MONOCYTES % 9.9 % 02/26/2025 11:28 AM CDT [facility] EOSINOPHILS % 2.4 % 02/26/2025 11:28 AM CDT [facility] BASOPHILS % 0.6 % 02/26/2025 11:28 AM CDT [facility] IMMATURE GRANS % 0.2 % 02/27/20 11:28 AM CDT [facility] NRBC % 0.0 % 02/26/2025 11:28 AM CDT [facility] ABS. NEUTROPHILS 2.10 1.60 - 8.30 x10'3/uL 02/26/2025 11:28 AM CDT [facility] ABS. LYMPHOCYTES 2.31 0.80 - 4.70 x10'3/uL 02/26/2025 11:28 AM CDT [facility] ABS. MONOCYTES 0.50 0.00 - 1.50 x10'3/uL 02/26/2025 11:28 AM CDT [facility] ABS. EOSINOPHILS 0.12 0.00 - 0.40 x10'3/uL 02/26/2025 11:28 AM CDT [facility] ABS. BASOPHILS 0.03 0.00 - 0.20 x10'3/uL 02/26/2025 11:28 AM CDT [facility] ABS. IMMATURE GRANULOCYTES 0.01 0.00 - 0.03 x10'3/uL 02/26/2025 11:28 AM CDT [facility] ABS. NUCLEATED RBC'S 0.00 0.00 - 0.01 x10'3/uL 02/26/2025 11:28 AM CDT [facility] 02/26/2025 11:2 2 AM CDT Hever Marc MD LABORATORY Final Result [facility] [address] [place] [place] [address], * (ABNORMAL) COMPREHENSIVE METABOLIC PANEL (02/26/2025 11:22 AM CDT) SODIUM S/P/B 142 136 - 145 MMOL/L 02/26/2025 11:47 AM CDT [facility] POTASSIUM S/P/B 4.5 3.5 - 5.1 MMOL/L 02/26/2025 11:47 AM CDT [facility] Comment:SLIGHT HEMOLYSIS, RE SULT MAY BE AFFECTED. CHLORIDE S/P/B 106 98 - 107 MMOL/L 02/26/2025 11:47 AM CDT [facility] CO2 26.1 21.0 - 32.0 MMOL/L 02/26/2025 11:47 AM CDT [facility] GLUCOSE 182(H) 70 - 99 MG/DL 02/26/2025 11:47 AM CDT [facility] Comment: MILD LIPEMIA. RESULT MAY BE AFFECTED. FASTING GLUCOSE 100 TO 125 MG/DL IS CONSISTENT WITH IMPAIRED FASTING GLUCOSE. FASTING GLUCOSE >125 MG/DL IS CONSISTENT WITH DIABETES. RANDOM GLUCOSE >200 MG/DL WITH HYPERGLYCEMIC SYMPTOMS IS CONSISTENT WITH DIABETES. PER ADA GUIDELINES BUN 10 6 - 24 MG/DL 02/26/2025 11:47 AM [facility] CREATININE S/P/B 0.91 0.70 - 1.30 MG/DL 02/26/2025 11:47 AM [facility] CALCIUM S/P/B 8.5 8.4 - 10.5 MG/DL 02/26/2025 11:47 AM [facility] BILIRUBIN TOTAL S/P/B 0.4 0.2 - 1.0 MG/DL 02/26/2025 11:47 AM [facility] Comment: THIS ASSAY IS NOT RECOMMENDED FOR PATIENTS UNDERGOING TREATMENT WITH ELTROMBOPAG DUE TO THE POTENTIAL FOR FALSELY ELEVATED RESULTS. ALKALINE PHOSPHATASE S/P/B 92 45 - 115 U/L 02/26/2025 11:47 AM [facility] AST 23 15 - 37 U/L 02/26/2025 11:47 AM [facility] ALT 31 16 - 63 U/L 02/26/2025 11:47 AM [facility] TOTAL PROTEIN S/P/B 6.6 6.4 - 8.2 G/DL 02/26/2025 11:47 AM [facility] ALBUMIN S/P/B 3.5 3.4 - 5.0 G/DL 02/26/2025 11:47 AM [facility] ANION GAP 9.9 5.0 - 15.0 MMOL/L 02/26/2025 11:47 AM [facility] OSMOLALITY (CALC) 298 MOSM/KG 025 11:47 AM [facility] Comment:REFERENCE RANGE NOT ESTABLISHED GFR ESTIMATE >90 >89 ML/MIN/1. 73 M2 02/26/2025 11:47 AM [facility] GFR NOTES GFR REFERENCE S: 02/26/2025 11:47 AM [facility] Comment: THE ESTIMATED GFR IS CALCULATED [...] ml/min/1.73 m2 02/26/2025 11:2 2 AM CDT Hever Marc MD LABORATORY Final Result [facility] [address] [place] [place] [address], documented in this encounter Visit Diagnoses Diagnosis Adenocarcinoma of pancreas (CMS/HCC [facility]/HCC)- Primary Malignant neoplasm of pancreas, part unspecified documented in this encounter Care Teams Renewals Manager Relationship Specialty Start Date End Date Jevon Pelletier MD [address] [place] [phone] PCP - General FAMILY PRACTICE 10/16/16 Lavon Schuler MD [address] [place] [address] [phone] Consulting Physician GASTROENTEROLOGY 08/11/20 Ravin Patel MD [address] [phone] Consulting Physician INTERVENTIONAL CARDIOLOGY 09/08/21 Leelee Montana, ASSESSMENT DIRECTOR- [address] [phone] NURSE PRACTITIONER 09/08/21 documented as of this encounter
--- OUTSIDE RECORDS SUMMARY | 2025-03-03 12:05 | XMS_ITS | Encounter Summary ---
Author Organization [facility] Address [address] [place] [address] Care Team Providers Care Trouble Shooter Name Role Phone Jevon Pelletier MD Primary Care Provider [phone] Nigel Petersen MD Unavailable [phone] Lavon Schuler MD Unavailable [phone] Ravin Patel MD Unavailable [phone] Leelee Montana [facility] Unavailable Encounter Details Date Type Department Care Team (Late st Contact Info) Description 08/16/2020 Abstract [facility] [address] [place] [phone] Abstract, Doc [facility] Social History Tobacco Use Types Packs/Day Years Used Date Smoking Tobacco: Never Smokeless Tobacco: Never Alcohol Use Standard Drinks/Week Comments No 0 (1 standard drink = 0.6 oz pur e alcohol) Sex and Gender Information Value Date Recorded Sex Assigned at Male 12/25/2024 9:22 AM 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 Legal Sex Male 11:59 PM CDT Gender Identity Not on file Sexual Orientation Not on file Occupation Industry Job Start Date Job End Date Fulltime [employer] Not on file Not on file Not [...] COVID-19 Confirmed 09/12/2020 09/12/2020 0 12:34 AM 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 COVID-19 Rule Out 11/13/2020 11/13/2020 11/14/2020 10:26 PM 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 COVID-19 Rule Out 11/24/2022 11/24/2022 11/24/2022 5:19 PM 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 COVID-19 Rule Out 11/24/2022 11/24/2022 11/25/2022 11:58 AM 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 documented as of this encounter Care Teams Trouble Shooter Relationship Specialty Start Date End Date Jevon Pelletier MD [address] [place] [phone] PCP - General FAMILY PRACTICE 10/16/16 Nigel Petersen MD [address] [place] [phone] [place] Catering Driver CARDIOVASCULAR DISEASE 10/16/16 09/07/21 Lavon Schuler MD [address] [phone] Consulting Physician GASTROENTEROLOGY 08/11/20 Ravin Patel MD [address] [phone] Consulting Physician INTERVENTIONAL CARDIOLOGY 09/08/21 Leelee [place], [facility]- [address] [place] [phone] NURSE PRACTITIONER 09/08/21 documented as of this encounter
== END 2025-03-03 10:38 | disposition home or self-care (01) ==
PROVIDERS: PCP Family Medicine
DX: Z45.2 Encounter for adjustment and management of vascular access device (principal); C25.9 Malignant neoplasm of pancreas, unspecified; E86.0 Dehydration
CPT/HCPCS: 96523

== ENCOUNTER 2025-03-17 10:34 | Outpatient (CLI) | payer OTHER, SELFPAY ==
[2025-03-17 10:48] VITALS: BP 112/69; PULSE 78; RESP 16; TEMP 36.4; O2SAT 98
[2025-03-17] MEDS: HEPARIN SODIUM LOCK FLUSH 500 UNITS/5 ML SYRINGE (10:53)
--- NOTE | 2025-03-17 11:00 | PC.NURSE ---
Tolerated chemo pump removal and port flush well.
--- OUTSIDE RECORDS SUMMARY | 2025-03-17 11:51 | XMS_ITS | Clinical Summary ---
Author Organization [facility] Address [address] [place] [address] Care Team Providers Care Plywood Patcher Name Role Phone Jevon Pelletier MD Primary Care Provider [phone] Lavon Schuler MD Unavailable [phone] Ravin Patel MD Unavailable [phone] Leelee Montana [facility] Unavailable Allergies Active Allergy Reactions Criticality [...] initial encounter 09/2020 Acute on chronic pancreatitis ([facility]) 07/06/2020 Hemoglobin A1c 8.0% or greater 07/06/2020 Osteoarthritis of left knee 12/27/2016 Essential (primary) hypertension 11/09/2016 Class 3 severe obesity due t o excess calories with serious comorbidity in adult 11/09/2016 ALEJO (obstructive sleep apnea) 11/09/2016 Umbilical hernia 06/05/2016 Controlled type 2 diabetes m ellitus with diabetic neuropathy ([facility]) Diabetic neuropathy ([facility]) Hypertension Coronary artery disease Overview (07/06/2020): non-obstructive Resolved Problems Problem Noted Date Diagnosed Date Resolved Date Hypomagnesemia 07/06/2020 07/13/2020 Other chest pain 01/31/2018 02/16/2022 Hyperlipidemia, mixed 11/09/20162019 Morbid obesity 02/16/2022 Sleep apnea with use of cont inuous positive airway pressure (CPAP) 02/16/2022 Overview (07/06/2020): has not been using secondary to waiting for a chin strap Encounters Date Type Department Care Team Description 03/12/2025 11:30 AM CDT - 03/12/2025 11:59 PM CDT Hospital Encounter [facility] [address] [place] [address] Albino Marc MD Discharge Disposition: Home or Self Care (Routine Discharge) 03/12/2025 Orders Only [facility] [address] [place] [address] Albino Marc MD 03/12/2025 Travel 02/26/2025 11:15 AM CDT - 02/26/2025 11:59 PM CDT Hospital Encounter [facility] [address] [place] [address] Albino Marc MD Discharge Disposition: Home or Self Care (Routine Discharge) 02/26/2025 Orders Only [facility] [address] [place] [address] Albino Marc MD 02/26/2025 Travel 02/18/2025 8:40 AM CDT - 02/18/2025 11:59 PM CDT Hospital Encounter [facility] [place] [address] Gordon Marc MD Khalid, Noor, MD Discharge Disposition: Home or Self Care (Routine Discharge) 02/18/2025 Orders Only [facility] [address] [place] [address] Albino Marc MD 02/18/2025 Travel 02/17/2025 Orders Only [facility] [address] [place] [address] Albino Marc MD 02/12/2025 1:35 PM CDT - 02/12/2025 11:59 PM CDT Hospital Encounter [facility] [address] [place] [address] Jevon Pelletier MD Khalid, Noor, MD Discharge Disposition: Home or Self Care (Routine Discharge) 02/12/2025 Orders Only [facility] [address] [place] [address] Albino Marc MD 02/12/2025 Travel 02/10/2025 Orders Only [facility] [address] [place] [address] Albino Marc MD 02/05/2025 6:00 AM LOGISTICS OPERATIONS MANAGER - 02/05/2025 11:59 PM LOGISTICS OPERATIONS MANAGER Hospital Encounter [facility] [address] [place] [address] Albino Marc MD Discharge Disposition: Home or Self Care (Routine Discharge) 02/05/2025 Travel 02/03/2025 12:50 PM LOGISTICS OPERATIONS MANAGER - 02/03/2025 11:59 PM LOGISTICS OPERATIONS MANAGER Hospital Encounter [facility] [address] [place] [address] Albino Marc MD Discharge Disposition: Home or Self Care (Routine Discharge) 02/03/2025 Orders Only [facility] [place] [address] Albino Marc MD 02/03/2025 Travel 01/28/2025 11:10 AM LOGISTICS OPERATIONS MANAGER - 01/28/2025 11:59 PM LOGISTICS OPERATIONS MANAGER Hospital Encounter [facility] [address] [place] [address] Albino Marc MD Discharge Disposition: Home or Self Care (Routine Discharge) 01/28/2025 11:09 AM LOGISTICS OPERATIONS MANAGER Hospital Encounter [facility] [address] [place] [address] Albino Marc MD Discharge Disposition: Home or Self Care (Routine Discharge) 01/28/2025 11:07 AM LOGISTICS OPERATIONS MANAGER - 01/28/2025 11:08 AM LOGISTICS OPERATIONS MANAGER Hospital Encounter [facility] [place] [address] Albion Marc MD Discharge Disposition: Home or Self Care (Routine Discharge) 01/28/2025 Orders Only [facility] [place] [address] Albino Marc MD 01/28/2025 Travel 01/25/2025 Orders Only [facility] [address] [place] [address] Albino Marc MD 01/22/2025 10:25 AM LOGISTICS OPERATIONS MANAGER - 01/22/2025 11:59 PM LOGISTICS OPERATIONS MANAGER Hospital Encounter [facility] [place] [address] WujekJevon MD Khalid, Noor, MD Discharge Disposition: Home or Self Care (Routine Discharge) 01/22/2025 Orders Only [facility] [address] [place] [address] Albino Marc MD 01/22/2025 Travel 01/14/2025 8:27 AM LOGISTICS OPERATIONS MANAGER - 01/14/2025 11:59 PM LOGISTICS OPERATIONS MANAGER Hospital Encounter [facility] [address] [place] [address] Albino Marc MD Discharge Disposition: Home or Self Care (Routine Discharge) 01/14/2025 Orders Only [facility] [address] [place] [address] Albino Marc MD 01/14/2025 Travel 01/08/2025 7:33 AM LOGISTICS OPERATIONS MANAGER - 01/08/2025 11:59 PM LOGISTICS OPERATIONS MANAGER Hospital Encounter [facility] [address] [place] [address] Albino Marc MD Discharge Disposition: Home or Self Care (Routine Discharge) 01/08/2025 Orders Only [facility] [address] [place] [address] Albino Marc MD 01/08/2025 Travel 12/25/2024 9:23 AM LOGISTICS OPERATIONS MANAGER - 12/25/2024 11:59 PM LOGISTICS OPERATIONS MANAGER Hospital Encounter [facility] [address] [place] [address] Albino Marc MD Discharge Disposition: Home or Self Care (Routine Discharge) 12/25/2024 Orders Only [facility] [address] [place] [address] Albino Marc MD 12/25/2024 Travel from Last 3 Months Family History [...] Sex Assigned at Male 12/25/2024 9:22 AM LOGISTICS OPERATIONS MANAGER Legal Sex Male 11:59 PM CDT Gender Identity Not on file Sexual Orientation Not on file 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 Not on file Not on file Not on file Last Filed Vital Signs Vital Sign Reading Time Taken Comments Blood Pressure 110/74 11/27/2022 8:42 AM LOGISTICS OPERATIONS MANAGER Pulse 79 11/27/2022 8:42 AM LOGISTICS OPERATIONS MANAGER Temperature 35.9 C (96.6 F) 11/27/2022 6:05 AM LOGISTICS OPERATIONS MANAGER Respiratory Rate 20 11/27/2022 6:05 AM LOGISTICS OPERATIONS MANAGER Oxygen Saturation 94% 11/27/2022 6:05 AM LOGISTICS OPERATIONS MANAGER Inhaled Oxygen Concentration - - Weight 131.6 kg (290 lb 3.2 oz) 11/24/2022 9:37 PM LOGISTICS OPERATIONS MANAGER Height 177.8 cm (5' 10 ) 11/24/2022 9:37 PM LOGISTICS OPERATIONS MANAGER Body Mass Index 41.64 11/24/2022 9:37 PM LOGISTICS OPERATIONS MANAGER Plan of Treatment Health Maintenance Due Date Last Done Comments ASCVD Statin 1960 Kidney Health Evaluation 1960 Annual Physical 1963 Diabetes: Retinopathy Eye Exam 1978 Hepatitis C 1978 DTaP, Tdap and Td Vaccines (1 - Tdap) 1979 Pneumococcal Vaccine: 50+ Years (1 of 2 - PCV) 1979 Zoster Vaccines (1 of 2) 2010 RSV Immunization or 60+ Years (1 - Risk 60-74 years 1-dose series) 2020 Hemoglobin A1C 04/20/2021 10/21/2020, 08/0 04/2020, 05/22/2016 ASCVD LDL 07/27/2021 07/27/2020, 07/02, 07/07/2020, Additional history exists Lipid Panel 07/27/2021 07/27/2020, 07/02, 07/07/2020, Additional history exists COVID-19 Vaccine ( - season) 2024 05/12/2021, 04/14/2021 Colorectal Cancer Screening [...] discharge from hospital Lifestyle No Mariely Cottrell, RN Medical Devices Implanted Type Area Prefitter Doors Device Identifier Shelf Expiration Date Model / Serial / Lot Kit [employer] Bioanchor Speedbridge 5.5 Swivelock - [id number] Implanted:Qty: 1 on 11/16/2020 by Franc Casas MD at [facility] [place] Left: Shoulder [employer] [id number] 08/01/2024 AR-[id number] S-5 / / [id number] Kit [employer] Bioanchor Speedbridge 5.5 Swivelock - [id number] Implanted:Qty: 1 on 11/16/2020 by Franc Casas MD at [facility] [place] Left: Shoulder [employer] [id number] 08/01/2024 AR-2600SB S-5 / / [id number] Implant System, Proximal Tenodesis Implanted:Qty: 1 on 11/16/2020 by Franc Casas MD at [facility] Left: Shoulder 03/31/2025 [id number] / / [id number] Procedures Procedure Name Priority Date/Time Associated Diagnosis Comments COMPREHENSIVE METABOLIC PANEL Routine 03/12/2025 11:42 AM CDT Adenocarcinoma of pancreas (CMS/HCC HHS/HCC) CBC W/DIFF AUTOMATED Routine 03/12/2025 11:42 AM CDT Adenocarcinoma of pancreas (CMS/HCC HHS/HCC) CBC W/DIFF AUTOMATED Routine 02/26/2025 11:22 AM [...] USE ECHOCARDIOGRAM Routine 02/05/2025 6: 37 AM LOGISTICS OPERATIONS MANAGER Chest pain COMPREHENSIVE METABOLIC PANEL Routine 02/03/2025 12:58 PM LOGISTICS OPERATIONS MANAGER Adenocarcinoma of pancreas (CMS/HCC HHS/HCC) CBC W/DIFF AUTOMATED Routine 02/03/2025 12:58 PM LOGISTICS OPERATIONS MANAGER Adenocarcinoma of pancreas (CMS/HCC HHS/HCC) ECG 12-LEAD Routine 01/28/2025 11:40 AM LOGISTICS OPERATIONS MANAGER Chest pain XR CHEST PA+LAT Routine 01/28/2025 11:27 AM LOGISTICS OPERATIONS MANAGER Chest pain IMMUNOASY TUMOR AG CA 19-9 Routine 01/28/2025 11:17 AM LOGISTICS OPERATIONS MANAGER Malignant neoplasm of pancreas, unspecified (CMS/HCC HHS/HCC) TROPONIN, QUANT Routine 01/28/2025 11:17 AM LOGISTICS OPERATIONS MANAGER Chest pain, unspecified COMPREHENSIVE METABOLIC PANEL Routine 01/22/2025 10:36 AM LOGISTICS OPERATIONS MANAGER Adenocarcinoma of pancreas (CMS/HCC HHS/HCC) CBC W/DIFF AUTOMATED Routine 01/22/2025 10:36 AM LOGISTICS OPERATIONS MANAGER Adenocarcinoma of pancreas (CMS/HCC HHS/HCC) COMPREHENSIVE METABOLIC PANEL Routine 01/14/2025 8:35 AM LOGISTICS OPERATIONS MANAGER Adenocarcinoma of pancreas (CMS/HCC HHS/HCC) COMPREHENSIVE METABOLIC PANEL Routine 01/08/2025 7:46 AM LOGISTICS OPERATIONS MANAGER Adenocarcinoma of pancreas (CMS/HCC HHS/HCC) CBC W/DIFF AUTOMATED Routine 01/08/2025 7:46 AM LOGISTICS OPERATIONS MANAGER Adenocarcinoma of pancreas (CMS/HCC HHS/HCC) COMPREHENSIVE METABOLIC PANEL Routine 12/25/2024 9:35 AM LOGISTICS OPERATIONS MANAGER Adenocarcinoma of pancreas (CMS/HCC HHS/HCC) CBC W/DIFF AUTOMATED Routine 12/25/2024 9:35 AM LOGISTICS OPERATIONS MANAGER Adenocarcinoma of pancreas (CMS/HCC HHS/HCC) COLONOSCOPY 05/26/2021 10:08 AM CDT HEMOGLOBIN, GLYCOSYLATED Routine 10/21/2020 1:39 PM LOGISTICS OPERATIONS MANAGER Controlled type 2 diabetes mellitus with diabetic neuropathy, unspecified whether 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 SODIUM S/P/B 141 136 - 145 MMOL/L 03/12/2025 12:07 PM CDT [facility] POTASSIUM S/P/B 4.3 3.5 - 5.1 MMOL/L 03/12/2025 12:07 PM CDT [facility] CHLORIDE S/P/B 105 98 - 107 MMOL/L 03/12/2025 12:07 PM CDT [facility] CO2 28.2 21.0 - 32.0 MMOL/L 03/12/2025 12:07 PM CDT [facility] GLUCOSE 169(H) 70 - 99 MG/DL 03/12/2025 12:07 PM CDT [facility] Comment: FASTING GLUCOSE 100 TO 125 MG/DL IS CONSISTENT WITH IMPAIRED FASTING GLUCOSE. FASTING GLUCOSE >125 MG/DL IS CONSISTENT WITH DIABETES. RANDOM GLUCOSE >200 MG/DL WITH HYPERGLYCEMIC SYMPTOMS IS CONSISTENT WITH DIABETES. PER ADA GUIDELINES BUN 15 6 - 24 MG/DL 03/12/2025 12:07 PM [facility] CREATININE S/P/B 0.98 0.70 - 1.30 MG/DL 03/12/2025 12:07 PM [facility] CALCIUM S/P/B 8.6 8.4 - 10.5 MG/DL 03/12/2025 12:07 PM [facility] BILIRUBIN TOTAL S/P/B 0.4 0.2 - 1.0 MG/DL 03/12/2025 12:07 PM [facility] Comment: THIS ASSAY IS NOT RECOMMENDED FOR PATIENTS UNDERGOING TREATMENT WITH ELTROMBOPAG DUE TO THE POTENTIAL FOR FALSELY ELEVATED RESULTS. ALKALINE PHOSPHATASE S/P/B 80 45 - 115 U/L 03/12/2025 12:07 PM [facility] AST 19 15 - 37 U/L 03/12/2025 12:07 PM [facility] ALT 26 16 - 63 U/L 03/12/2025 12:07 PM [facility] TOTAL PROTEIN S/P/B 6.7 6.4 - 8.2 G/DL 03/12/2025 12:07 PM [facility] ALBUMIN S/P/B 3.6 3.4 - 5.0 G/DL 03/12/2025 12:07 PM [facility] ANION GAP 7.8 5.0 - 15.0 MMOL/L 03/12/2025 12:07 PM [facility] OSMOLALITY (CALC) 297 MOSM/KG 025 12:07 PM [facility] Comment:REFERENCE RANGE NOT ESTABLISHED GFR ESTIMATE 86(L) >89 ML/MIN/1. 73 M2 03/12/2025 12:07 PM [facility] GFR NOTES GFR REFERENCE S: 03/12/2025 12:07 PM CDT [facility] Comment: THE ESTIMATED GFR [...] ml/min/1.73 m2 G5,KIDNEY FAILURE: <15 ml/min/1.73 m2 03/12/2025 11:4 2 AM CDT Albino Marc MD LABORATORY Final Result [facility] [address] [place] [address], * (ABNORMAL) CBC W/DIFF AUTOMATED (03/12/2025 11:42 AM CDT) Only the most recent of7 resultswithin the time period is included. WBC 4.73 4.00 - 10.80 x10'3/uL 03/12/2025 11:58 AM CDT [facility] RBC 4.49(L) 4.50 - 6.10 x10'6/uL 03/12/2025 11:58 AM CDT [facility] HGB 14.4 13.0 - 18.0 G/DL 03/12/2025 11:58 AM CDT [facility] HCT 43.0 37.0 - 52.0 % 03/12/2025 11:58 AM CDT [facility] MCV 95.8 78.0 - 100.0 FL 03/12/2025 11:58 AM CDT [facility] MCH 32.1(H) 27.0 - 31.0 PG 03/12/2025 11:58 AM CDT [facility] MCHC 33.5 33.0 - 36.0 G/DL 03/12/2025 11:58 AM CDT [facility] RDW 14.4 11.5 - 14.5 % 03/12/2025 11:58 AM CDT [facility] PLT 160 150 - 350 x10'3/uL 03/12/2025 11:58 AM CDT [facility] MPV 9.0 7.4 - 10.4 FL 03/12/2025 11:58 AM CDT [facility] CBC COMMENT NORMAL REFERENCE RANGE NOT ESTABLISHED FOR THE PROPORTIONAL LEUKOCYTE DIFFERENTIAL. 03/12/2025 11:58 AM CDT [facility] NEUTROPHILS % 34.8 % 03/12/2025 11:58 AM CDT [facility] LYMPHOCYTES % 50.5 % 03/12/2025 11:58 AM CDT [facility] MONOCYTES % 11.0 % 03/12/2025 11:58 AM CDT [facility] EOSINOPHILS % 2.7 % 03/12/2025 11:58 AM CDT [facility] BASOPHILS % 0.8 % 03/12/2025 11:58 AM CDT [facility] IMMATURE GRANS % 0.2 % 03/12/20 11:58 AM CDT [facility] NRBC % 0.0 % 03/12/2025 11:58 AM CDT [facility] ABS. NEUTROPHILS 1.64 1.60 - 8.30 x10'3/uL 03/12/2025 11:58 AM CDT [facility] ABS. LYMPHOCYTES 2.39 0.80 - 4.70 x10'3/uL 03/12/2025 11:58 AM CDT [facility] ABS. MONOCYTES 0.52 0.00 - 1.50 x10'3/uL 03/12/2025 11:58 AM CDT [facility] ABS. EOSINOPHILS 0.13 0.00 - 0.40 x10'3/uL 03/12/2025 11:58 AM CDT [facility] ABS. BASOPHILS 0.04 0.00 - 0.20 x10'3/uL 03/12/2025 11:58 AM CDT [facility] ABS. IMMATURE GRANULOCYTES 0.01 0.00 - 0.03 x10'3/uL 03/12/2025 11:58 AM CDT [facility] ABS. NUCLEATED RBC'S 0.00 0.00 - 0.01 x10'3/uL 03/12/2025 11:58 AM CDT [facility] 03/12/2025 11:4 2 AM CDT us Albino Marc MD LABORATORY Final Result [facility] [address] [place] [address], * (ABNORMAL) BASIC METABOLIC PANEL (02/18/2025 9:11 AM CDT) SODIUM S/P/B 137 136 - 145 MMOL/L 02/18/2025 9:27 AM CDT [facility] POTASSIUM S/P/B 4.3 3.5 - 5.1 MMOL/L 02/18/2025 9:27 AM CDT [facility] CHLORIDE S/P/B 102 98 - 107 MMOL/L 02/18/2025 9:27 AM CDT [facility] CO2 25.7 21.0 - 32.0 MMOL/L 02/18/2025 9:27 AM CDT [facility] GLUCOSE 129(H) 70 - 99 MG/DL 02/18/2025 9:27 AM CDT [facility] Comment: FASTING GLUCOSE 100 TO 125 MG/DL IS CONSISTENT WITH IMPAIRED FASTING GLUCOSE. FASTING GLUCOSE >125 MG/DL IS CONSISTENT WITH DIABETES. RANDOM GLUCOSE >200 MG/DL WITH HYPERGLYCEMIC SYMPTOMS IS CONSISTENT WITH DIABETES. PER ADA GUIDELINES BUN 21 6 - 24 MG/DL 02/18/2025 9:27 AM CDT [facility] CREATININE S/P/B 1.04 0.70 - 1.30 MG/DL 02/18/2025 9:27 AM CDT [facility] CALCIUM S/P/B 8.6 8.4 - 10.5 MG/DL 02/18/2025 9:27 AM CDT [facility] ANION GAP 9.3 5.0 - 15.0 MMOL/L 02/18/2025 9:27 AM CDT [facility] OSMOLALITY (CALC) 289 MOSM/KG 025 9:27 AM T [facility] Comment:REFERENCE RANGE NOT ESTABLISHED GFR ESTIMATE 80(L) >89 ML/MIN/1. 73 M2 02/18/2025 9:27 AM CDT [facility] GFR NOTES GFR REFERENCE S: 02/18/2025 9:27 AM T [facility] Comment: THE ESTIMATED GFR [...] CDT Albino Marc MD LABORATORY Final Result [facility] [address] [place] [address], * USE ECHOCARDIOGRAM (02/05/2025 6:37 AM LOGISTICS OPERATIONS MANAGER) Anatomical Region Laterality Modality Cardiac Ultrasound 02/05/2025 6:09 AM LOGISTICS OPERATIONS MANAGER Narrative 02/06/2025 11:10 PM LOGISTICS OPERATIONS MANAGER Echocardiography Report Pat.Name: Vanessa Montenegro.ID: [id number] .Date: 02/05/2025 [facility]: 6:09:00 AM Study Type:OUTREACH Height: 70 in Weight: 250 lb BSA: 2.29 m2 Age: 5 1960,64Y Sex: M Sonogrphr: Sf Pat. Stat.:Outpatient Reason for Study:Chest pain Procedures: Study performed at [place], [place] and interpreted by [facility]. 2D, M-mode, Doppler, Color Flow [...] 02/06/2025 Echocardiography Report Pat.Name: Vanessa Montenegro Pat.ID: [id number] .Date: 02/05/2025 Refer.MD: [facility]enezer, [facility] Exam Time: 6:09:00 AM Study Type:EBENEZER Height: 70 in Weight: 250 lb BSA: 2.29 m2 Age: 5 1960,64Y Sex: M Sonogrphr: Pat. Stat.:Outpatient Reason for Study:Chest pain Procedures: Study performed at [place], [place] and interpreted by [facility]. 2D, M-mode, Doppler, Color Flow [...] * ECG 12 lead (01/28/2025 11:40 AM LOGISTICS OPERATIONS MANAGER) 01/28/2025 11:4 0 AM LOGISTICS OPERATIONS MANAGER Narrative [facility] - 01/28/2025 8:18 PM LOGISTICS OPERATIONS MANAGER [address] [place] [address] Test Date: 2025-01-28 Pat Name: VANESSA MONTENEGRO Department: 3 Room: Gender: Male Fly Winder: GRETA : 1960 Requested By: ALBINO MARC Order Number: [id number] Reading MD: Jim Thakkar Measurements Intervals Rhodelia Rate: 93 P: 18 CA: 169 QRS: 100 QRSD: 115 T: 18 QT: 347 QTc: 432 Interpretive Statements SINUS RHYTHM BORDERLINE RIGHT AXIS DEVIATION [QRS AXIS > 90] PATTERN CONSISTENT WITH PULMONARY DISEASE INCOMPLETE RIGHT BUNDLE BRANCH BLOCK [90+ ms QRS DURATION, TERMINAL R IN V1/V2, 40+ ms S IN I/aVL/V4/V5/V6] STICS OPERATIONS MANAGER Procedure Note Jim Thakkar MD - 01/28/[address] [place] [address] Test Date: 2025-01-28 Pat Name: VANESSA MONTENEGRO Department: 3 Room: Gender: Male Fly Winder: GRETA : 1960 Requested By: ALBINO MARC Order Number: [id number] Reading MD: Jim Thakkar Measurements Intervals Rhodelia Rate: 93 P: 18 CA: 169 QRS: 100 QRSD: 115 T: 18 QT: 347 QTc: 432 Interpretive Statements SINUS RHYTHM BORDERLINE RIGHT AXIS DEVIATION [QRS AXIS > 90] PATTERN CONSISTENT WITH PULMONARY DISEASE INCOMPLETE RIGHT BUNDLE BRANCH BLOCK [90+ ms QRS DURATION, TERMINAL RIN V1/V2, 40+ ms S IN I/aVL/V4/V5/V6] STICS OPERATIONS MANAGER us Albino Marc MD ECG ORDERABLES Final Result [facility] * XR CHEST PA+LAT (01/28/2025 11:27 AM LOGISTICS OPERATIONS MANAGER) Anatomical Region Laterality Modality Chest Radiographic Brittni ging 01/28/2025 1:36 PM LOGISTICS OPERATIONS MANAGER Impressions 01/28/2025 1:37 PM LOGISTICS OPERATIONS MANAGER IMPRESSION: No acute cardiopulmonary abnormality. Port tip in the distal superior vena cava. Ordered By: ALBINO MARC Interpreted By: Drake Avila MD, 01/28/2025 1:36 PM Narrative 01/28/2025 1:37 PM LOGISTICS OPERATIONS MANAGER [address] [place] [address] Procedure(s): XR CHEST PA+LAT Date of service: [...] Procedure Note Drake Avila MD - 01/28/[address] [place] [address] Procedure(s): XR CHEST PA+LAT Date of service: [...] TUMOR AG CA 19-9 (01/28/2025 11:17 AM LOGISTICS OPERATIONS MANAGER) CA 19-9 16 <34 U/mL 02/01/2025 2:29 PM LOGISTICS OPERATIONS MANAGER [facility] Comment: This test was performed using the Siemens chemiluminescent method. Values obtained from different assay methods cannot be used inter- changeably. CA 19-9 levels, regardless of value, should not be interpreted as absolute evidence of the presence or absence of disease. Test Performed by [facility], [facility], [address] [place] [address] Aaron Mccall M.D., Ph.D., Director of Laboratories , [place] [id number] 01/28/2025 11:1 7 AM LOGISTICS OPERATIONS MANAGER Albino Marc MD LABORATORY Final Result Performing Organization Address City/[facility]/ZIP Co de Phone Number [facility] [address] , [place] [phone] * TROPONIN, QUANT (01/28/2025 11:17 AM LOGISTICS OPERATIONS MANAGER) Pathologist [facility] TROPONIN I HIGH SENSITIVITY 6 0 - 76 ng/L 01/28/2025 11:42 AM LOGISTICS OPERATIONS MANAGER [facility] 01/28/2025 11:1 7 AM LOGISTICS OPERATIONS MANAGER us Albino Marc MD LABORATORY Final Result [facility] [address] [place] [address], [place] [phone] * COLONOSCOPY (05/26/2021 10:08 AM CDT) Yobany Stern MD GI PROCEDURE ORDERABLES Final Result * (ABNORMAL) HEMOGLOBIN, GLYCOSYLATED (10/21/2020 1:39 PM LOGISTICS OPERATIONS MANAGER) HGB A1C 7.5(H) <5.7 % 10/21/2020 1:55 PM LOGISTICS OPERATIONS MANAGER [facility] Comment: 5.7 TO 6.4% INCREASED RISK OF DIABETES > OR = 6.5% CONSISTENT WITH DIABETES PER ADA GUIDELINES ESTIMATED AVG GLUCOSE 169(H) 70 - 140 MG/DL 10/21/2020 1:55 PM LOGISTICS OPERATIONS MANAGER [facility] 10/21/2020 1:39 PM LOGISTICS OPERATIONS MANAGER Franc Casas MD LABORATORY Final Result [facility] [address] [place] [address], * LIPID PANEL (OUTSIDE LAB) (07/27/2020) CHOLESTEROL 122 TRIGLYCERIDES 250 HDL 35 LDL (CALCULATED) 37 VLDL CALCULATION 50 CHOL/HDL RATIO 3.5 07/27/2020 Doc [facility] LAB-OUTSIDE/ABSTRACTED Final Result from Last 3 Months or Most Recently Relevant to Health Maintenance Insurance [address] Advance Directives * Full Code (Latest Code Status on File) Date Activated Date Inactivated Comments 11/25/2022 5:07 PM 11/27/2022 1:35 PM * Full Code Date Activated Date Inactivated Comments 07/06/2020 2:42 PM 07/13/2020 6:06 PM Care Teams Plywood Patcher Relationship Specialty Start [place] [address] [place] [address] [place] [phone] PCP - General FAMILY PRACTICE 10/16/16 Lavon Schuler MD [address] [id number] Consulting Physician GASTROENTEROLOGY 08/11/20 Ravin Patel MD [address] [id number] Consulting Physician INTERVENTIONAL CARDIOLOGY 09/08/21 Leelee [place], MANAGER GIFT- [address] [id number] NURSE PRACTITIONER 09/08/21
--- OUTSIDE RECORDS SUMMARY | 2025-03-17 11:51 | XMS_ITS | Encounter Summary ---
Author Organization [facility] Address [address] [place] [address] Care Team Providers Care Charge Histotechnologist Name Role Phone Jevon Pelletier MD Primary Care Provider [phone] Nigel Petersen MD Unavailable [phone] Lavon Schuler MD Unavailable [phone] Ravin Patel MD Unavailable [phone] Leelee Montana [facility] Unavailable Encounter Details Date Type Department Care Team (Late st Contact Info) Description 05/09/2019 Abstract [facility] CONVERSION [address] [place] [address] , Generic Conversion, Social History Tobacco Use Types Packs/Day Years Used Date Smoking Tobacco: Never Smokeless Tobacco: Never Alcohol Use Standard Drinks/Week Comments No 0 (1 standard drink = 0.6 oz pur e alcohol) Sex and Gender Information Value Date Recorded Sex Assigned at Male 12/25/2024 9:22 AM PLASTERER ROUGH Legal Sex Male 11:59 PM CDT Gender Identity Not on file Sexual Orientation Not on file 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 file Not on file Not on file documented as of this encounter Plan of Treatment Not on file documented as of this encounter Visit Diagnoses Not on filedocumented in this encounter Additional Health Concerns Infection Onset Date Last Indicated Resolved Time COVID-19 Rule Out 09/12/2020 09/12/2020 09/13/2020 9:06 PM CDT COVID-19 Confirmed 09/12/2020 09/12/2020 0 12:34 AM PLASTERER ROUGH COVID-19 Rule Out 11/13/2020 11/13/2020 11/14/2020 10:26 PM PLASTERER ROUGH COVID-19 Rule Out 11/24/2022 11/24/2022 11/24/2022 5:19 PM PLASTERER ROUGH COVID-19 Rule Out 11/24/2022 11/24/2022 11/25/2022 11:58 AM PLASTERER ROUGH documented as of this encounter Care Teams Charge Histotechnologist Relationship Specialty Start Date End Date Jevon Pelletier MD [address] [place] [address] PCP - General FAMILY PRACTICE 10/16/16 Nigel Petersen MD [facility] [place] [address] [place] Outside Sales Associate CARDIOVASCULAR DISEASE 10/16/16 09/07/21 Lavon Schuler MD [address] [place] [address] [phone] Consulting Physician GASTROENTEROLOGY 08/11/20 Ravin Patel MD [address] [place] [address] Consulting Physician INTERVENTIONAL CARDIOLOGY 09/08/21 Leelee Montana, [facility] [address] [address] NURSE PRACTITIONER 09/08/21 documented as of this encounter
--- OUTSIDE RECORDS SUMMARY | 2025-03-17 11:51 | XMS_ITS | Encounter Summary ---
Author Organization [facility] Address [address] [place] [address] Care Team Providers Care Supervisor Kosher Dietary Service Name Role Phone Jevon Pelletier MD Primary Care Provider [phone] Lavon Schuler MD Unavailable [phone] Ravin Patel MD Unavailable [phone] [facility] Unavailable Encounter Details Date Type Department Care Team (Late st Contact Info) Description 03/12/2025 Orders Only [facility] [address] [facility] [place] [address] Hever Marc MD [address] [place] [address] Social History Tobacco Use Types Packs/Day Years Used Date Smoking Tobacco: Never Smokeless Tobacco: Never Alcohol Use Standard Drinks/Week Comments No 0 (1 standard drink = 0.6 oz pur e alcohol) Sex and Gender Information Value Date Recorded Sex Assigned at Male 12/25/2024 9:22 AM CATTLE DEALER Legal Sex Male 11:59 PM CDT Gender Identity Not on file Sexual Orientation Not on file 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 Answer Date of Assessment Author Status No 11/24/2022 9:28 PM CATTLE DEALER Activ e * Do you have serious [...] encounter Results * (ABNORMAL) COMPREHENSIVE METABOLIC PANEL (03/12/2025 11:42 AM CDT) SODIUM S/P/B 141 136 - 145 MMOL/L 03/12/2025 12:07 PM CDT [facility] POTASSIUM S/P/B 4.3 3.5 - 5.1 MMOL/L 03/12/2025 12:07 PM CDT [facility] CHLORIDE S/P/B 105 98 - 107 MMOL/L 03/12/2025 12:07 PM CDT [facility] CO2 28.2 21.0 - 32.0 MMOL/L 03/12/2025 12:07 PM CDT [facility] GLUCOSE 169(H) 70 - 99 MG/DL 03/12/2025 12:07 PM [facility] Comment: FASTING GLUCOSE 100 TO 125 MG/DL IS CONSISTENT WITH IMPAIRED FASTING GLUCOSE. FASTING GLUCOSE >125 MG/DL IS CONSISTENT WITH DIABETES. RANDOM GLUCOSE >200 MG/DL WITH HYPERGLYCEMIC SYMPTOMS IS CONSISTENT WITH DIABETES. PER ADA GUIDELINES BUN 15 6 - 24 MG/DL 03/12/2025 12:07 PM [facility] CREATININE S/P/B 0.98 0.70 - 1.30 MG/DL 03/12/2025 12:07 PM [facility] CALCIUM S/P/B 8.6 8.4 - 10.5 MG/DL 03/12/2025 12:07 PM [facility] BILIRUBIN TOTAL S/P/B 0.4 0.2 - 1.0 MG/DL 03/12/2025 12:07 PM [facility] Comment: THIS ASSAY IS NOT RECOMMENDED FOR PATIENTS UNDERGOING TREATMENT WITH ELTROMBOPAG DUE TO THE POTENTIAL FOR FALSELY ELEVATED RESULTS. ALKALINE PHOSPHATASE S/P/B 80 45 - 115 U/L 03/12/2025 12:07 PM [facility] AST 19 15 - 37 U/L 03/12/2025 12:07 PM [facility] ALT 26 16 - 63 U/L 03/12/2025 12:07 PM [facility] TOTAL PROTEIN S/P/B 6.7 6.4 - 8.2 G/DL 03/12/2025 12:07 PM [facility] ALBUMIN S/P/B 3.6 3.4 - 5.0 G/DL 03/12/2025 12:07 PM [facility] ANION GAP 7.8 5.0 - 15.0 MMOL/L 03/12/2025 12:07 PM [facility] OSMOLALITY (CALC) 297 MOSM/KG 025 12:07 PM [facility] Comment:REFERENCE RANGE NOT ESTABLISHED GFR ESTIMATE 86(L) >89 ML/MIN/1. 73 M2 03/12/2025 12:07 PM [facility] GFR NOTES GFR REFERENCE S: 03/12/2025 12:07 PM CDT [facility] Comment: THE ESTIMATED GFR [...] ml/min/1.73 m2 03/12/2025 11:4 2 AM CDT Hever Marc MD LABORATORY Final Result [facility] Critical [facility] hospital[address] [address], * (ABNORMAL) CBC W/DIFF AUTOMATED (03/12/2025 11:42 AM CDT) WBC 4.73 4.00 - 10.80 x10'3/uL 03/12/2025 11:58 AM CDT [facility] RBC 4.49(L) 4.50 - 6.10 x10'6/uL 03/12/2025 11:58 AM CDT [facility] HGB 14.4 13.0 - 18.0 G/DL 03/12/2025 11:58 AM CDT [facility] HCT 43.0 37.0 - 52.0 % 03/12/2025 11:58 AM CDT [facility] MCV 95.8 78.0 - 100.0 FL 03/12/2025 11:58 AM CDT [facility] MCH 32.1(H) 27.0 - 31.0 PG 03/12/2025 11:58 AM CDT [facility] MCHC 33.5 33.0 - 36.0 G/DL 03/12/2025 11:58 AM CDT [facility] RDW 14.4 11.5 - 14.5 % 03/12/2025 11:58 AM CDT [facility] PLT 160 150 - 350 x10'3/uL 03/12/2025 11:58 AM CDT [facility] MPV 9.0 7.4 - 10.4 FL 03/12/2025 11:58 AM CDT [facility] CBC COMMENT NORMAL REFERENCE RANGE NOT ESTABLISHED FOR THE PROPORTIONAL LEUKOCYTE DIFFERENTIAL. 03/12/2025 11:58 AM CDT [facility] NEUTROPHILS % 34.8 % 03/12/2025 11:58 AM CDT [facility] LYMPHOCYTES % 50.5 % 03/12/2025 11:58 AM CDT [facility] MONOCYTES % 11.0 % 03/12/2025 11:58 AM CDT [facility] EOSINOPHILS % 2.7 % 03/12/2025 11:58 AM CDT [facility] BASOPHILS % 0.8 % 03/12/2025 11:58 AM CDT [facility] IMMATURE GRANS % 0.2 % 03/12/20 11:58 AM CDT [facility] NRBC % 0.0 % 03/12/2025 11:58 AM CDT [facility] ABS. NEUTROPHILS 1.64 1.60 - 8.30 x10'3/uL 03/12/2025 11:58 AM CDT [facility] ABS. LYMPHOCYTES 2.39 0.80 - 4.70 x10'3/uL 03/12/2025 11:58 AM CDT [facility] ABS. MONOCYTES 0.52 0.00 - 1.50 x10'3/uL 03/12/2025 11:58 AM CDT [facility] ABS. EOSINOPHILS 0.13 0.00 - 0.40 x10'3/uL 03/12/2025 11:58 AM CDT [facility] ABS. BASOPHILS 0.04 0.00 - 0.20 x10'3/uL 03/12/2025 11:58 AM CDT [facility] ABS. IMMATURE GRANULOCYTES 0.01 0.00 - 0.03 x10'3/uL 03/12/2025 11:58 AM CDT [facility] ABS. NUCLEATED RBC'S 0.00 0.00 - 0.01 x10'3/uL 03/12/2025 11:58 AM CDT [facility] 03/12/2025 11:4 2 AM CDT Hever Marc MD LABORATORY Final Result [facility] [address] [place] [address], documented in this encounter Visit Diagnoses Diagnosis Adenocarcinoma of pancreas (CMS/HCC HHS/HCC)- Primary Malignant neoplasm of pancreas, part unspecified documented in this encounter Care Teams Supervisor Kosher Dietary Service Relationship Specialty Start Date End Date Jevon Pelletier MD [address] [place] [address] PCP - General FAMILY PRACTICE 10/16/16 Lavon Schuler MD [address] [place] [address] Consulting Physician GASTROENTEROLOGY 08/11/20 Ravin Patel MD [address] [place] [address] Consulting Physician INTERVENTIONAL CARDIOLOGY 09/08/21 [facility] [address] [place] [address] NURSE PRACTITIONER 09/08/21 documented as of this encounter
--- OUTSIDE RECORDS SUMMARY | 2025-03-17 11:51 | XMS_ITS | Encounter Summary ---
Author Organization [facility] Address [address] [place] [address] Care Team Providers Care Vessel Crew Member Name Role Phone Jevon Pelletier MD Primary Care Provider [phone] Nigel Petersen MD Unavailable [phone] Lavon Schuler MD Unavailable [phone] Ravin Patel MD Unavailable [phone] Leelee Montana [facility] Unavailable Encounter Details Date Type Department Care Team (Late st Contact Info) Description 08/16/2020 Abstract [facility] [address] [place] [id number] Abstract, Doc [facility] Social History Tobacco Use Types Packs/Day Years Used Date Smoking Tobacco: Never Smokeless Tobacco: Never Alcohol Use Standard Drinks/Week Comments No 0 (1 standard drink = 0.6 oz pur e alcohol) Sex and Gender Information Value Date Recorded Sex Assigned at Male 12/25/2024 9:22 AM GASTROENTEROLOGY MANAGER Legal Sex Male 11:59 PM CDT Gender Identity Not on file Sexual Orientation Not on file 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 Not on file Not [...] COVID-19 Confirmed 09/12/2020 09/12/2020 0 12:34 AM GASTROENTEROLOGY MANAGER COVID-19 Rule Out 11/13/2020 11/13/2020 11/14/2020 10:26 PM GASTROENTEROLOGY MANAGER COVID-19 Rule Out 11/24/2022 11/24/2022 11/24/2022 5:19 PM GASTROENTEROLOGY MANAGER COVID-19 Rule Out 11/24/2022 11/24/2022 11/25/2022 11:58 AM GASTROENTEROLOGY MANAGER documented as of this encounter Care Teams Vessel Crew Member Relationship Specialty Start Date End Date Jevon Pelletier MD [address] [place] [phone] PCP - General FAMILY PRACTICE 10/16/16 Nigel Petersen MD [address] [place] [address] [place] Internal Audit Consultant CARDIOVASCULAR DISEASE 10/16/16 09/07/21 Lavon Schuler MD [address] [phone] Consulting Physician GASTROENTEROLOGY 08/11/20 Ravin Patel MD [address] [phone] Consulting Physician INTERVENTIONAL CARDIOLOGY 09/08/21 Leelee Montana, [facility]- [address] [place] [phone] NURSE PRACTITIONER 09/08/21 documented as of this encounter
--- OUTSIDE RECORDS SUMMARY | 2025-03-17 11:51 | XMS_ITS | Encounter Summary ---
Author Organization [facility] Address [address] [place] [address] Care Team Providers Care Chart Collector Name Role Phone Jevon Pelletier MD Primary Care Provider [phone] Lavon Schuler MD Unavailable Ravin Patel MD Unavailable [phone] Leelee Montana [facility] Unavailable Encounter Details Date Type Department Care Team (Late st Contact Info) Description 02/28/2024 [employer] Message Enc [facility] BUSINESS [facility] Provider Action Required Social History Tobacco Use Types Packs/Day Years Used Date Smoking Tobacco: Never Smokeless Tobacco: Never Alcohol Use Standard Drinks/Week Comments No 0 (1 standard drink = 0.6 oz pur e alcohol) Sex and Gender Information Value Date Recorded Sex Assigned at Male 12/25/2024 9:22 AM SUPERVISOR RECORD PRESS Legal Sex Male 11:59 PM CDT Gender Identity Not on file Sexual Orientation Not on file 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 Answer Date of Assessment Author Status No 11/24/2022 9:28 PM SUPERVISOR RECORD PRESS Activ e * Do you have serious [...] on filedocumented in this encounter Care Teams Chart Collector Relationship Specialty [place] [address] [place] [address] [place] [address] PCP - General FAMILY PRACTICE 10/16/16 Lavon Schuler MD [address] [place] [address] Consulting Physician GASTROENTEROLOGY 08/11/20 Ravin Patel MD [address] [place] [address] Consulting Physician INTERVENTIONAL CARDIOLOGY 09/08/21 Leelee Montana, [facility] [address] [address] NURSE PRACTITIONER 09/08/21 documented as of this encounter
--- OUTSIDE RECORDS SUMMARY | 2025-03-17 11:51 | XMS_ITS | Encounter Summary ---
Author Organization [facility] Address [address] [place] [address] Care Team Providers Care Construction Engineer Name Role Phone Jevon Pelletier MD Primary Care Provider [phone] Nigel Petersen MD Unavailable [phone] Lavon Schuler MD Unavailable [phone] Ravin Patel MD Unavailable [phone] Leelee Montana [facility] Unavailable Encounter Details Date Type Department Care Team (Late st Contact Info) Description 11/18/2015 Abstract [facility] [address] [place] [address] Nigel Petersen MD [address] [place] [address] Social History Tobacco Use Types Packs/Day Years Used Date Smoking Tobacco: Never Alcohol Use Standard Drinks/Week Comments No 0 (1 standard drink = 0.6 oz pur e alcohol) Sex and Gender Information Value Date Recorded Sex Assigned at Male 12/25/2024 9:22 AM SWEATBAND SHAPER Legal Sex Male 11:59 PM CDT Gender Identity Not on file Sexual Orientation Not on file 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 Not on file Not on file documented as of this encounter Plan of Treatment Not on file documented as of this encounter Visit Diagnoses Not on filedocumented in this encounter Additional Health Concerns Infection Onset Date Last Indicated Resolved Time COVID-19 Rule Out 09/12/2020 09/12/2020 09/13/2020 9:06 PM CDT COVID-19 Confirmed 09/12/2020 09/12/2020 12:34 AM SWEATBAND SHAPER COVID-19 Rule Out 11/13/2020 11/13/2020 11/14/2020 10:26 PM SWEATBAND SHAPER COVID-19 Rule Out 11/24/2022 11/24/2022 11/24/2022 5:19 PM SWEATBAND SHAPER COVID-19 Rule Out 11/24/2022 11/24/2022 11/25/2022 11:58 AM SWEATBAND SHAPER documented as of this encounter Care Teams Construction Engineer Relationship Specialty Start Date End Date Jevon Pelletier MD [address] [place] [phone] PCP - General FAMILY PRACTICE 10/16/16 Nigel Petersen MD [facility] [place] [address] [place] Junior Data Analyst CARDIOVASCULAR DISEASE 10/16/16 09/07/21 Lavon Schuler MD [address] [place] [address] [phone] Consulting Physician GASTROENTEROLOGY 08/11/20 Ravin Patel MD [address] [place] [phone] Consulting Physician INTERVENTIONAL CARDIOLOGY 09/08/21 Leelee Montana, [facility]- [address] [place] [address] [phone] NURSE PRACTITIONER 09/08/21 documented as of this encounter
== END 2025-03-17 10:35 | disposition home or self-care (01) ==
PROVIDERS: PCP Family Medicine; Visit Provider Internal Medicine Hematology & Oncology
DX: Z45.2 Encounter for adjustment and management of vascular access device (principal); C25.9 Malignant neoplasm of pancreas, unspecified
CPT/HCPCS: 96523

== ENCOUNTER 2025-03-31 10:28 | Outpatient (CLI) | payer OTHER, SELFPAY ==
[2025-03-31 10:48] VITALS: BMI 37.0
[2025-03-31] MEDS: HEPARIN SODIUM LOCK FLUSH 500 UNITS/5 ML SYRINGE IV PUSH (10:53)
--- NOTE | 2025-03-31 10:54 | PC.NURSE ---
Patient here for chemo pump removal and port flush. Procedure explained. NO concerns voiced. Chemo pump removed and port flush administered. SEE MAR/patient care notes. Tolerated well. Patient took pump and will return it to [facility] on his next appointment.
== END 2025-03-31 10:29 | disposition home or self-care (01) ==
PROVIDERS: PCP Family Medicine; Visit Provider Internal Medicine Hematology & Oncology
DX: Z45.2 Encounter for adjustment and management of vascular access device (principal); C25.9 Malignant neoplasm of pancreas, unspecified
CPT/HCPCS: 96523